=== PATIENT | female | born 1990 | race Caucasian/White ===

== ENCOUNTER 2018-08-15 14:47 | Outpatient (REF) | payer MEDICAID, SELFPAY ==
[2018-08-18 15:19] LABS: Chlamydia Result Negative; GC Result Negative; Specimen Description CERVIX
== END 2018-08-15 15:07 ==
LOC: LBN 14:47
PROVIDERS: PCP Family Medicine; Visit Provider Nurse Practitioner Women's Health
DX: Z11.3 Encounter for screening for infections with a predominantly sexual mode of transmission (principal)
CPT/HCPCS: 87491; 87591

== ENCOUNTER 2020-09-11 21:00 | Emergency (ER) | payer MEDICAID, SELFPAY ==
[2020-09-11 21:05] VITALS: BP 149/79; PULSE 96; RESP 18; TEMP 36.6; O2SAT 99
--- NOTE | 2020-09-11 21:48 | DI.RAD_ITS ---
EXAM: XR ELBOW RT COMPLETE CLINICAL HISTORY: fall. TECHNIQUE: 2D digital imaging was performed. COMPARISON: No exams were available for comparison FINDINGS: BONES: No acute fracture is present. No bony destructive lesion is seen. JOINTS: The elbow is normally aligned. No joint effusion is seen. SOFT TISSUE: Normal. IMPRESSION: Unremarkable radiographs of the right elbow. DATA REPOSITORY: RADIATION DOSE DELIVERED:
--- NOTE | 2020-09-11 21:48 | DI.RAD_ITS ---
EXAM: XR SHOULDER RT COMPLETE 2+V CLINICAL HISTORY: fall. TECHNIQUE: 2D digital imaging was performed. COMPARISON: No exams were available for comparison FINDINGS: BONES: No acute fracture is present. No bony destructive lesion is seen. JOINTS: No dislocation present. SOFT TISSUE: Normal. IMPRESSION: Unremarkable radiographs of the right shoulder. DATA REPOSITORY: RADIATION DOSE DELIVERED:
--- NOTE | 2020-09-11 21:59 | DI.VRAD_ITS ---
PROCEDURE INFORMATION: Exam: XR Right Elbow Exam date and time: 09/11/2020 9:26 PM Age: 30 years old Clinical indication: Injury; Fall; Blunt trauma right elbow TECHNIQUE: Imaging protocol: XR Right elbow. Views: 3 or more views. COMPARISON: No relevant prior studies available. FINDINGS: Bones/joints: No acute fracture. No dislocation. No anterior or posterior fat pad sign is identified to suggest joint effusion. Soft tissues: No soft tissue radiopaque foreign body. IMPRESSION: No acute fracture or dislocation. Dictated and Authenticated by: Julio Daniels MD. Ordering:KRISTEL Hatch MD
--- NOTE | 2020-09-11 22:01 | DI.VRAD_ITS ---
PROCEDURE INFORMATION: Exam: XR Right Shoulder Exam date and time: 09/11/2020 9:47 PM Age: 30 years old Clinical indication: Injury; Fall; Blunt trauma right shoulder TECHNIQUE: Imaging protocol: XR Right shoulder. Views: 2 or more views. COMPARISON: No relevant prior studies available. FINDINGS: Bones/joints: No acute fracture. No dislocation. No AC joint separation. No focal osseous lesion. Soft tissues: No soft tissue radiopaque foreign body or soft tissue calcification. IMPRESSION: No acute findings. Dictated and Authenticated by: Julio Daniels MD. Ordering:KRISTEL Hatch MD
--- NOTE | 2020-09-11 22:04 | ED.GENADUL_ITS ---
Discharge Plan Disposition Patient Disposition: HOME Condition: Stable Discharge Details Clinical Impression: Arm pain Primary Care Provider: Venkat Ayala ED Provider: Holden Abbott Home Meds and New Rx's Prescriptions: Continued ibuprofen 200 mg tablet 200 mg PO QID PRNRF: 0 cetirizine 10 mg tablet 10 mg PO DAILY Qty: 90 RF: 3 fluticasone propionate 50 mcg/actuation spray,suspension 2 spray NS DAILY PRN (Reason: allergy symptoms) Qty: 47.4 RF: 4 acetaminophen 500 mg Tablet 1,000 mg PO PRN PRNRF: 0 Discharge Instructions Instructions: Elbow Sprain (ED), Shoulder Pain (ED) Additional Instructions: [id number] Tylenol and/or Motrin as directed for discomfort. Gentle stretching as tolerated. Cool and/or warm compresses every 2 hours for 20 minutes. Please watch for new or worsening symptoms and return to the ER for any concerns. To recommend reaching out your primary care provider tomorrow for reevaluation in the next 5-7 days if you are not doing significantly better with conservative therapy Medical Decision Making [id number] 30-year-old female presents after a fall from a ladder, approximately 4-5 feet high. She complains of right shoulder and elbow pain, no other injuries. Clinically she appears well, nontoxic. There is no obvious deformity. Will obtain x-ray of shoulder and elbow to evaluate for potential bony abnormality versus soft tissue injury. Neuro, vascular, tendon intact. X-ray of the right shoulder and elbow read by virtual radiology is unremarkable. Discussed findings with patient. She is relieved and has no additional questions or concerns. She declines sling. Will use [id number] Tylenol and/or Motrin as directed for discomfort. She was encouraged to return to the ER for new or worsening symptoms, otherwise follow-up with her primary care provider in 1 week. Medical Records Medical records reviewed: Yes I reviewed the patient's medical records. HPI General Mode of arrival: ambulatory . Date/Time Provider Initiated Documentation: 09/11/20 21:15 . Limitations to Documentation: no limitations . Information obtained by: patient . HPI Narrative: This is a 30-year-old female, who is right-hand dominant. She denies any significant past medical history. She states that around noon today she was standing on a ladder, she would guess her feet were approximately 4-5 feet off the ground. The ladder slipped, twisted and she fell to the ground hyperextending her right arm. She states the pain in her right shoulder and elbow is mild at rest, moderate with movement. She denies striking her head, neck pain, visual change, chest pain, abdominal pain, nausea, vomiting, back pain, change in bowel or bladder function, incontinence, numbness or weakness. She does report mild tingling in her right arm. Patient denies any other injury. Related Data Home Medications Medication Instructions Recorded Confirmed ibuprofen 200 mg tablet 200 mg PO QID PRN 08/15/18 09/11/20 cetirizine 10 mg tablet 10 mg PO DAILY #90 tab-cap 02/06/19 09/11/20 fluticasone propionate 50 2 spray NS DAILY PRN #47.4 gm 07/18/20 09/11/20 mcg/actuation nasal spray,suspension acetaminophen 1,000 mg PO PRN PRN 09/11/20 09/11/20 Previous Rx's Medication Instructions Recorded cetirizine 10 mg tablet 10 mg PO DAILY #90 tab-cap 02/06/19 fluticasone propionate 50 2 spray NS DAILY PRN #47.4 gm 07/18/20 mcg/actuation nasal spray,suspension Allergies Allergy/AdvReac Type Severity Reaction Status Date / Time erythromycin base Allergy Intermediate RASH Unverified 09/11/20 21:09 alcohol Allergy Mild Skin Rash Unverified 09/11/20 21:09 enviornmental Allergy Mild uri Uncoded 09/11/20 21:09 symptoms General Stated Complaint: Trauma HENOK: 3 Review of Systems Constitutional Constitutional: Denies headache(s) and Denies weakness Eyes Eyes: Denies change in vision ENT Ears, Nose, Mouth, and Throat: Denies headache(s) and Denies neck pain Cardiovascular Cardiovascular: Denies chest pain and Denies dyspnea Respiratory Respiratory: Denies dyspnea Gastrointestinal Gastrointestinal: Denies abdominal pain, Denies nausea and Denies vomiting Genitourinary Genitourinary: Denies urinary incontinence Musculoskeletal Musculoskeletal: Denies back pain, Denies neck pain, Denies numbness and Reports tingling Integumentary/Breasts Skin/Breast: Denies rash Neurologic Neurologic: Denies headache(s), Denies numbness, Reports tingling and Denies weakness [facility] Surgical History Cholecystectomy Family History Father Aortic aneurysm rupture Son Congenital heart defect Social History Smoking/Tobacco Use Status: Never Smoking risk assessment performed?: Yes Drug use: Never Do you feel safe in your relationship?: Yes Female Reproductive History Menstrual control method: progestin IUCD (Mirena inserted by JoseA Emanuel LOT=[id number] EXP=10/2020) History History 3 Para 3 Hx # Term Pregnancies Multiple births Hx # Pregnancies Ectopic pregnancies AB induced Hx Number of Living Children AB spontaneous Exam Const General: cooperative, healthy appearing, comfortable and no acute distress Orientation: alert, awake and oriented x3 HENMT Head: normal to inspection, normocephalic and atraumatic Ears: external ears normal, TM's normal bilaterally and EAC's normal Eyes General: appearance normal, both eyes and all related structures Alignment and Position: alignment normal Periorbital: periorbital findings normal Eyelids: eyelids normal Conjunctivae: conjunctivae normal Sclera: sclerae normal Cornea: corneas normal Pupils: PERRL EOM: EOM intact bilaterally Direct ophthalmoscopy: normal light reflex Neck Neck: normal visual inspection, full ROM, trachea midline, supple and nontender Resp Effort & Inspection: normal respiratory effort and able to speak in complete sentences Auscultation: clear to auscultation bilaterally Cardio Rate: regular rate Rhythm: regular rhythm GI Palpation: soft and nontender Back/Spine/Pelvis Back: No back tenderness Skin General skin exam: no rashes or lesions noted Neuro General: patient alert, patient awake, patient oriented x3, moves all extremities and no focal motor deficits Cognition: normal cognition Speech: speech normal Gait: normal gait Motor: muscle tone normal throughout and strength 5/5 throughout Sensory Exam: no sensory deficits noted Extrem Right upper extremity: full ROM, normal capillary refill, shoulder/upper arm Details: tenderness (Diffuse superior shoulder), axillary nerve sensory function normal and normal ROM; no swelling, elbow/forearm Details: tenderness (Diffuse posterior aspect of elbow) and normal ROM; no swelling and wrist Details: normal ROM and ecchymosis (Minimal lateral aspect); no tenderness and no swelling Left upper extremity: normal to inspection, full ROM and normal capillary refill Psych Appearance: grossly normal Mental Status: mental status grossly normal Course Vital Signs Vital signs: Vital Signs Temperature 36.6 C 09/11/20 21:05 Pulse 96 H 09/11/20 21:05 Respiratory Rate 18 09/11/20 21:05 Blood Pressure 149/79 H 09/11/20 21:05 Pulse Oximetry 99 09/11/20 21:05 Temperature 36.6 C 09/11/20 21:05 Temperature Source Temporal Artery Scan 09/11/20 21:05 Pulse 96 H 09/11/20 21:05 Respiratory Rate 18 09/11/20 21:05 Respiratory Effort 09/11/20 21:18 Respiratory Depth Normal 09/11/20 21:18 Respiratory Pattern Normal 09/11/20 21:18 Blood Pressure 149/79 H 09/11/20 21:05 Blood Pressure Position Sitting 09/11/20 21:05 Pulse Oximetry 99 09/11/20 21:05 Oxygen Delivery Method Room Air 09/11/20 21:05 Oxygen Flow Rate 0 09/11/20 21:05
== END 2020-09-11 22:15 | disposition home or self-care (01) ==
PROVIDERS: Emergency Provider Physician Assistant; PCP Family Medicine
DX: M25.511 Pain in right shoulder (principal); M25.521 Pain in right elbow; W11.XXXA Fall on and from ladder, initial encounter
CPT/HCPCS: 99284; 73030; 73080; 99283

== ENCOUNTER 2020-09-21 15:53 | Outpatient (REF) | payer MEDICAID, SELFPAY ==
[2020-09-25 07:28] LABS: SARS-CoV-2 RNA Undetected (Undetected); SARS-CoV-2 Specimen Source Nasal
== END 2020-09-21 16:13 ==
LOC: LBN 15:53
PROVIDERS: PCP Family Medicine; Visit Provider Physician Assistant
DX: J02.9 Acute pharyngitis, unspecified (principal)
CPT/HCPCS: U0003; 87070

== ENCOUNTER 2020-12-27 16:52 | Outpatient (REF) | payer MEDICAID, SELFPAY ==
--- NOTE | 2020-12-27 10:45 | PAPFT_PTH ---
PATIENT: Neris Suh LOC: [facility] U#:[id number] AGE/SX: 30/F ROOM: RE12/27/[address]: MESSI Flores : 1990 BED: DIS: 12/27/2020 SPEC #: [id number] RECD: 12/27/20 17:58 STATUS: BREANN REQ #: [id number] MAXINE: 12/27/20 10:[address]: Roxanne Mendoza DEPT: [facility] Cytology RECD BY: Heather Mcfarland ENTERED: 12/27/20 17:59 SP TYPE: PAPFT OTHR DR: Venkat Ayala MD Tissues: 1 - CX/ENDOCX FOR PAP SMEARS Procedures: PAP THIN PREP/UVM Screening Comments: [id number] (UNSATISFACTORY FOR EVALUATION)
[2020-12-29 14:40] LABS: Chlamydia Result Negative (Negative); GC Result Negative (Negative)
== END 2020-12-27 16:53 | disposition home or self-care (01) ==
LOC: LBN 16:52
PROVIDERS: PCP Family Medicine; Visit Provider Nurse Practitioner Family
DX: Z11.3 Encounter for screening for infections with a predominantly sexual mode of transmission (principal); Z12.4 Encounter for screening for malignant neoplasm of cervix; R87.615 Unsatisfactory cytologic smear of cervix
CPT/HCPCS: 87491; 87591; 88142

== ENCOUNTER 2021-01-31 02:56 | Outpatient (CLI) | payer MEDICAID, SELFPAY ==
[2021-02-01 18:00] LABS: COVID-19 RT-PCR UVMMC Result Negative (Negative)
== END 2021-01-31 02:57 | disposition home or self-care (01) ==
LOC: LBO 02:56
PROVIDERS: PCP Family Medicine; Visit Provider Family Medicine
DX: Z20.822 Contact with and (suspected) exposure to COVID-19 (principal)
CPT/HCPCS: U0003

== ENCOUNTER 2021-05-07 19:24 | Emergency (ER) | payer MEDICAID, SELFPAY ==
[2021-05-07 19:33] VITALS: BP 148/82; PULSE 87; RESP 18; TEMP 36.6; O2SAT 97
--- NOTE | 2021-05-07 19:58 | ED.GENADUL_ITS ---
Discharge Plan Disposition Patient Disposition: HOME Condition: Good Discharge Details Clinical Impression: Upper respiratory disease Primary Care Provider: Venkat Ayala ED Provider: Heather Moon Home Meds and New Rx's Prescriptions: New albuterol sulfate 90 mcg/actuation HFA aerosol inhaler 2 puff inhalation Q6H PRNQty: 6.7 RF: 0 Continued Mirena 20 mcg/24 hours (6 yrs) 52 mg intrauterine device 1 device intrauterine ONCE RF: 0 ibuprofen 200 mg tablet 200 mg PO QID PRNRF: 0 fluticasone propionate 50 mcg/actuation spray,suspension 2 spray NS DAILY PRN (Reason: allergy symptoms) Qty: 47.4 RF: 4 cetirizine 10 mg tablet 10 mg PO DAILY Qty: 90 RF: 3 acetaminophen 500 mg Tablet 1,000 mg PO PRN PRNRF: 0 Discharge Instructions Additional Instructions: Take Mucinex Use albuterol inhaler as needed for cough Increase fluid hydration Ibuprofen ibuprofen and Tylenol for symptom control With persistent laryngitis, recommendation to follow-up with ENT Discharge Data Discharge Date/Time-TO BE ENTERED AT DEPARTURE: 05/07/21 20:15 Medical Decision Making Patient with upper respiratory congestion and cough with laryngitis She appears well, her lungs are clear to auscultation and her vitals are stable, there is no hypoxia, no indication for chest x-ray at this time, 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, she is aware that she should isolate until her Covid test returns Patient is otherwise afebrile and nontoxic She is given an albuterol inhaler She is instructed to follow-up with her primary care physician in 24 to 48 hours for reevaluation return earlier should she have new or worsening complaints Low suspicion for pneumonia given lack of tachypnea, hypoxia, and no fever noted without wheezes Suspect upper respiratory infection, low suspicion for pulmonary embolism as patient is not on exogenous hormones, and otherwise well in appearance without tachypnea, tachycardia, or hypoxia HPI General Mode of arrival: ambulatory . Date/Time Provider Initiated Documentation: 05/07/21 19:45 . Limitations to Documentation: no limitations . Information obtained by: patient . HPI Narrative: This 30-year-old female presents with upper respiratory symptoms. She states that she has been sick for the past 2 weeks with runny nose and intermittent laryngitis. She denies any shortness of breath. She states her cough is productive. She denies any calf pain or swelling. She denies fever or chills. She denies shortness of breath or chance of . She denies any known sick contacts. She has care with vaccinated. She is supposed to work tomorrow and thought she should be evaluated which is why she presents. She denies significant new or worsening complaints Related Data Home Medications Medication Instructions Recorded Confirmed ibuprofen 200 mg tablet 200 mg PO QID PRN 08/15/18 05/07/21 fluticasone propionate 50 2 spray NS DAILY PRN #47.4 gm 07/18/20 05/07/21 mcg/actuation nasal spray,suspension acetaminophen 1,000 mg PO PRN PRN 09/11/20 05/07/21 cetirizine 10 mg tablet 10 mg PO DAILY #90 tab-cap 09/19/20 05/07/21 levonorgestrel 20 mcg/24 hours (6 1 device INTRAUTERINE ONCE 12/27/20 05/07/21 yrs) 52 mg intrauterine device albuterol sulfate 2 puff INHALATION Q6H PRN #6.7 g 05/07/21 Previous Rx's Medication Instructions Recorded fluticasone propionate 50 2 spray NS DAILY PRN #47.4 gm 07/18/20 mcg/actuation nasal spray,suspension cetirizine 10 mg tablet 10 mg PO DAILY #90 tab-cap 09/19/20 albuterol sulfate 2 puff INHALATION Q6H PRN #6.7 g 05/07/21 Allergies Allergy/AdvReac Type Severity Reaction Status Date / Time erythromycin base Allergy Intermediate RASH Verified 05/07/21 19:40 alcohol Allergy Mild Skin Rash Verified 05/07/21 19:40 enviornmental Allergy Mild uri Uncoded 05/07/21 19:40 symptoms General Stated Complaint: RespSymp HENOK: 3 Review of Systems All systems reviewed & are unremarkable except as noted in HPI and below PFSH Medical History Abnormal cervical Pap smear with positive HPV DNA test (05/27/09) Epithelial inclusion cyst Panic attack (09/15/13) Teen (09/15/13) Umbilical hernia Surgical History Cholecystectomy Family History Father Aortic aneurysm rupture Alcohol abuse Hypertension Son Congenital heart defect Mother Hypertension Alcohol abuse Depression Sister Substance abuse Social History Smoking/Tobacco Use Status: Never Second Hand Exposure: No Smoking risk assessment performed?: Yes Alcohol Intake: current Alcohol Intake frequency: holidays/special occasions only Alcohol type: wine and hard liquor Drug use: Never Substance use type: does not use Household members: significant other and children Housing: house Communication Needs: None Do you need help understanding health information?: Never Pets and animals: Yes Pets and animals: dog(s) Sexually active: Yes Do you think of yourself as: straight/heterosexual Current gender identity: female What is your relationship status?: living with partner How often do you talk on the phone with friends or family?: three or more times per week How often do you get together with friends or relatives?: never Panel score (0-1 are the most socially isolated patients): 2 What type of physical activity do you participate in: none Carolin/Latter-Day: No preference Special carolin needs: No Seatbelt use: always Helmet use: Yes Helmet use: always Do you feel safe at home: Yes Do you feel safe in your relationship?: Yes Female Reproductive History Menstrual control method: progestin IUCD (Mirena inserted by Jose A Emanuel LOT=[id number] EXP=10/2020) History History 3 Para 3 Hx # Term Pregnancies Multiple births Hx # Pregnancies Ectopic pregnancies AB induced Hx Number of Living Children AB spontaneous Exam Const General: cooperative, comfortable and no acute distress Eyes Pupils: PERRL Resp Effort & Inspection: normal respiratory effort Auscultation: clear to auscultation bilaterally Cardio Rate: regular rate Skin General skin exam: no rashes or lesions noted Neuro General: patient alert and patient oriented x3 Extrem Other: no peripheral edema Course Vital Signs Vital signs: Vital Signs Temperature 36.6 C 05/07/21 19:33 Pulse 87 05/07/21 19:33 Respiratory Rate 18 05/07/21 19:33 Blood Pressure 148/82 H 05/07/21 19:33 Pulse Oximetry 97 05/07/21 19:33 Temperature 36.6 C 05/07/21 19:33 Pulse 87 05/07/21 19:33 Respiratory Rate 18 05/07/21 19:33 Respiratory Effort Non-Labored 05/07/21 19:40 Blood Pressure 148/82 H 05/07/21 19:33 Blood Pressure Position Sitting 05/07/21 19:33 Pulse Oximetry 97 05/07/21 19:33 Oxygen Delivery Method Room Air 05/07/21 19:33 Oxygen Flow Rate 0 05/07/21 19:33 Pain Level 0 05/07/21 19:33
[2021-05-07] MEDS: Dexamethasone 4 MG TAB 8 MG PO (20:10)
[2021-05-09 14:16] LABS: COVID-19 RT-PCR UVMMC Result Negative (Negative)
== END 2021-05-07 20:15 | disposition home or self-care (01) ==
PROVIDERS: Emergency Provider Physician Assistant; PCP Family Medicine
DX: J04.0 Acute laryngitis (principal); J06.9 Acute upper respiratory infection, unspecified; R05 Cough; Z20.822 Contact with and (suspected) exposure to COVID-19; Z03.818 Encounter for observation for suspected exposure to other biological agents ruled out
CPT/HCPCS: 99283; U0003; J8540

== ENCOUNTER 2022-05-21 13:01 | Outpatient (CLI) | payer MEDICAID, SELFPAY ==
--- NOTE | 2022-05-21 12:45 | DI.RAD_ITS ---
Exam(s) XR TIB/FIB RT EXAM: XR TIB/FIB RT CLINICAL HISTORY: s/p Right ORIF. TECHNIQUE: 2D digital imaging was performed. COMPARISON: No exams were available for comparison FINDINGS: Two views There is a long intramedullary jumana transfixing the oblique fracture site just distal to midshaft of r ight tibia. There appears to be satisfactory alignment. Fracture line still visible. No obvious ca llus formation. No other thinner fracture line seen in the cortex distal to the primary site.. IMPRESSION: DATA REPOSITORY: RADIATION DOSE DELIVERED:
== END 2022-05-21 13:02 | disposition home or self-care (01) ==
LOC: DIORS 13:02
PROVIDERS: PCP Family Medicine; Referring Provider Family Medicine; Visit Provider Physician Assistant
DX: S82.201B Unspecified fracture of shaft of right tibia, initial encounter for open fracture type I or II (principal); X58.XXXA Exposure to other specified factors, initial encounter
CPT/HCPCS: 73590

== ENCOUNTER 2022-05-27 20:36 | Emergency (ER) | payer MEDICAID, SELFPAY ==
[2022-05-27 20:49] VITALS: BP 161/87; PULSE 117; RESP 18; TEMP 37; O2SAT 100
[2022-05-27 20:52] VITALS: BP 145/84
[2022-05-27] MEDS: Cephalexin 500 MG CAP PO (22:02)
--- NOTE | 2022-05-27 22:02 | ED.GENADUL_ITS ---
Discharge Plan Disposition Patient Disposition: HOME Condition: Stable Discharge Details Clinical Impression: Cellulitis Primary Care Provider: Deedee Elder ED Provider: Jim Spivey Home Meds and New Rx's Prescriptions: New cephalexin 500 mg tablet 500 mg PO QID 7 Days Qty: 28 0RF Continued Mirena 20 mcg/24 hours (6 yrs) 52 mg intrauterine device 1 device intrauterine ONCE Rx Instructions: as a single dose ibuprofen 200 mg tablet 200 mg PO QID PRN aspirin 81 mg tablet,delayed release (DR/EC) 81 mg PO BID tramadol 50 mg tablet 50 mg PO Q6H PRN cetirizine 10 mg tablet 10 mg PO DAILY Qty: 90 3RF fluticasone propionate 50 mcg/actuation spray,suspension 2 spray NS DAILY PRN (Reason: allergy symptoms) Qty: 47.4 4RF acetaminophen 500 mg Tablet 1,000 mg PO PRN PRN Discharge Instructions Instructions: Cellulitis (ED) Additional Instructions: Continue to monitor wound and for any new or significant worsening symptoms return immediately to the emergency department. Otherwise tomorrow please call the orthopedic office for arrangement of follow-up appointment and reassessment of your infection. Referrals: Roshan Dumont MD [ [facility] STAFF PHYSICIAN] - (Please call the office for arrangement of follow-up appointment) Medical Decision Making Patient presenting to the emergency department for chief complaint of right lower leg drainage and increasing discomfort for the past day. Patient states that approximately 2 weeks ago she had a mechanical fall that resulted in an open fracture that was repaired. Patient had been having significant impr ovement in symptoms until she noted serosanguineous drainage from the lower site where the bone broke through the skin. Patient states that surgical incision site has had no issues or complications. Patient has been following nonweightbearing with occasional attempts at weightbearing but denies any increase of activity or further injury or trauma to the area. Physical exam shows laceration to mid anterior lower leg with surrounding erythema warmth and tenderness. Patient does have picture of site 1 week ago and there is significant concern for secondary infection. Surgical dressing was left intact but has no surrounding erythema or significant tenderness of concern. Did contact the on-call orthopedist Dr. Dumont whom recommended patient to be started on Keflex and follow-up in their office. Patient is agreeable to this plan of care and is stable at time of discharge. After discussion of diagnosis and plan of care patient has no further needs, questions, or concerns and states clear understanding to return to the emergency department for any worsening symptoms. This documentation was generated using [employer] system, please disregard any oddities of phrase or misspellings. HPI General Mode of arrival: ambulatory (On crutches) . Date/Time Provider Initiated Documentation: 05/27/22 20:39 . Limitations to Documentation: no limitations . Information obtained by: patient, RN notes reviewed and old records reviewed . History of Present Illness 31 year old F presents to the emergency department with the chief complaint of Right lower leg infected wound, described as mild, with intensity rated at 3. Quality is described as burning, and is localized to the right and lower extremity. Patient distal. Patient started experiencing this day(s) (1) and it has been constant. No relieving factors improve symptom(s), No exacerbating factors reported . Patient notes no other symptoms.. Patient did receive the following treatments prior to arrival, none Related Data Home Medications Medication Instructions Recorded Confirmed ibuprofen 200 mg tablet 200 mg PO QID PRN 08/15/18 05/27/22 acetaminophen 500 mg tablet 1,000 mg PO PRN PRN 09/11/20 05/27/22 levonorgestrel 20 mcg/24 hours (7 1 device intrauterine ONCE 12/27/20 05/27/22 yrs) 52 mg intrauterine device (Mirena) cetirizine 10 mg tablet 10 mg PO DAILY #90 tab-caps 01/12/22 05/27/22 fluticasone propionate 50 2 spray NS DAILY PRN allergy 01/12/22 05/27/22 mcg/actuation nasal symptoms #47.4 grams spray,suspension aspirin 81 mg tablet,delayed 81 mg PO BID 05/21/22 05/27/22 release tramadol 50 mg tablet 50 mg PO Q6H PRN 05/21/22 05/21/22 cephalexin 500 mg tablet 500 mg PO QID 7 days #28 tabs 05/27/22 Previous Rx's Medication Instructions Recorded cetirizine 10 mg tablet 10 mg PO DAILY #90 tab-caps 01/12/22 fluticasone propionate 50 2 spray NS DAILY PRN allergy 01/12/22 mcg/actuation nasal symptoms #47.4 grams spray,suspension cephalexin 500 mg tablet 500 mg PO QID 7 days #28 tabs 05/27/22 Allergies Allergy/AdvReac Type Severity Reaction Status Date / Time erythromycin base Allergy Intermediate RASH Verified 05/27/22 20:53 alcohol Allergy Mild Skin Rash Verified 05/27/22 20:53 enviornmental Allergy Mild uri Uncoded 05/27/22 20:53 symptoms General Stated Complaint: Orthopedic HENOK: 4 Review of Systems Narrative: 8 systems reviewed and unremarkable except what is marked below. Constitutional Constitutional: Denies chills and Denies fever(s) Musculoskeletal Musculoskeletal: Reports as per HPI and Reports tingling Integumentary/Breasts Skin/Breast: Reports as per HPI, Reports erythema, Reports skin pain and Reports skin swelling Neurologic Neurologic: Reports tingling PFSH All Active Problems Cellulitis (Acute) Open right tibial fracture (Acute 05/14/22) Upper respiratory disease (Acute) Superior labrum ydttlmwh-[id number]-ysaiggylr (SLAP) tear of right shoulder (Acute ~08/2020) Abnormal cervical Pap smear with positive HPV DNA test (Acute 05/27/09) Panic attack (Acute 09/15/13) Teen (Acute 09/15/13) Epithelial inclusion cyst (Acute) Umbilical hernia (Acute) Right arm pain (Acute) Sore throat (Acute) IUD surveillance (Acute) Mirena inserted 08/15/18 Vitamin D deficiency (Acute 10/13/14) S/P cholecystectomy (Acute) Multigravida in third trimester (Acute 02/08/16) Migraine with aura (Acute 09/15/13) Loss of sense of smell (Acute 12/31/17) Family history of diabetes mellitus (DM) (Acute 01/14/18) father Family history of alcohol abuse (Acute 01/14/18) Family history of abdominal aortic aneurysm (AAA) (Acute 01/14/18) Encounter for supervision of other normal , first trimester (Acute 09/07/15) Encounter for visit (Acute 05/23/16) Alopecia (Acute 12/31/17) Allergic rhinitis (Acute 12/31/17) 24 weeks gestation of (Acute 12/26/15) Fall (Acute 12/26/15) Surgical History Cholecystectomy Family History Father Aortic aneurysm rupture Alcohol abuse Hypertension Son Congenital heart defect Mother Hypertension Alcohol abuse Depression Sister Substance abuse Social History Smoking/Tobacco Use Status: Never Second Hand Exposure: No Smoking risk assessment performed?: Yes Alcohol Intake: current Alcohol Intake frequency: holidays/special occasions o nly Alcohol type: wine and hard liquor Drug use: Never Substance use type: does not use Household members: significant other and children Housing: house Communication Needs: None Do you need help understanding health information?: Never Pets and animals: Yes Pets and animals: dog(s) Sexually active: Yes Do you think of yourself as: straight/heterosexual Current gender identity: female What is your relationship status?: living with partner How often do you talk on the phone with friends or family?: three or more times per week How often do you get together with friends or relatives?: never Panel score (0-1 are the most socially isolated patients): 2 What type of physical activity do you participate in: none Carolin/Anabaptism: No preference Special carolin needs: No Seatbelt use: always Helmet use: Yes Helmet use: always Do you feel safe at home: Yes Do you feel safe in your relationship?: Yes Female Reproductive History Menstrual control method: progestin IUCD (Mirena inserted by Jose A Emanuel LOT=[id number] EXP=10/2020) History History 3 Para 3 Hx # Term Pregnancies Multiple births Hx # Pregnancies Ectopic pregnancies AB induced Hx Number of Living Children AB spontaneous Exam Const General: cooperative, no acute distress and not ill appearing Orientation: alert, awake and oriented x3 Resp Effort & Inspection: normal respiratory effort, able to speak in complete sentences and no respiratory distress Cardio Pulses: normal peripheral pulses Skin General skin exam: no rashes or lesions noted Neuro General: patient alert, patient awake, patient oriented x3, moves all extremities and no focal motor deficits Sensory Exam: no sensory deficits noted Extrem General: normal exam except as noted Right lower extremity: lower leg Details: erythema Location: of the mid lower leg Location: anteriorly, tenderness Location: of the midshaft tibia, laceration and warmth Location: of the mid lower leg Course Vital Signs Vital signs: Vital Signs Temperature 37.0 C 05/27/22 20:49 Pulse 117 H 05/27/22 20:49 Respiratory Rate 18 05/27/22 20:49 Blood Pressure 161/87 H 05/27/22 20:49 Pulse Oximetry 100 05/27/22 20:49 Temperature 37.0 C 05/27/22 20:49 Temperature Source Skin 05/27/22 20:49 Pulse 117 H 05/27/22 20:49 Respiratory Rate 18 05/27/22 20:49 Respiratory Effort Non-Labored 05/27/22 20:54 Blood Pressure 145/84 H 05/27/22 20:52 Blood Pressure Position Sitting 05/27/22 20:49 Pulse Oximetry 100 05/27/22 20:49 Oxygen Delivery Method Room Air 05/27/22 20:49 Oxygen Flow Rate 0 05/27/22 20:49 Pain Level 3 05/27/22 20:54
[2022-05-27] MEDS: Cephalexin 500 MG CAP, 2 CAPS/BTL PO (22:10)
[2022-05-27 22:15] VITALS: BP 145/84; PULSE 117; RESP 18; TEMP 37; O2SAT 100
== END 2022-05-27 22:24 | disposition home or self-care (01) ==
PROVIDERS: Emergency Provider Nurse Practitioner Family; PCP Family Medicine
DX: T81.49XA Infection following a procedure, other surgical site, initial encounter (principal); L03.115 Cellulitis of right lower limb
CPT/HCPCS: 99283

== ENCOUNTER 2022-06-04 13:14 | Emergency (ER) | payer MEDICAID, SELFPAY ==
[2022-06-04 13:29] VITALS: BP 167/88; PULSE 114; RESP 16; TEMP 36.4; O2SAT 99
--- NOTE | 2022-06-04 13:47 | PDOC.ERCMPRO ---
- If Service Date Differs Date of service: 06/04/22 Time of Service: 13:47 Care Management Progress Note SBIRT screen: negative. BNI alcohol low risk (AUDIT 7) female. Pt reports no substance use or mental health symptoms.
--- NOTE | 2022-06-04 14:45 | DI.RAD_ITS ---
Exam(s) XR TIB/FIB RT EXAM: XR TIB/FIB RT CLINICAL HISTORY: pain, fell today 3 wks s/p tibia jumana. TECHNIQUE: 2D digital imaging was performed. COMPARISON: CR XR TIB/FIB RT from 05/21/2022 FINDINGS: Two views Again noted is a long intramedullary jumana in the femur transfixing the previously described fracture s ite just distal to the midshaft. No change in alignment. Fracture line still evident. No obvious c allus formation. No obvious radiographic evidence of osteomyelitis. Again noted is a 2nd smaller nondisplaced posterior cortex fracture in the tibia located approximatel y 3 cm below the primary fracture site. There is subcutaneous soft tissue streaking in the calf noted, not cleared since 05/21/2022. IMPRESSION: Minimal radiographic change when compared to 05/21/2022. DATA REPOSITORY: RADIATION DOSE DELIVERED:
--- NOTE | 2022-06-04 14:51 | ED.GENADUL_ITS ---
Discharge Plan Disposition Patient Disposition: HOME Condition: Stable Discharge Details Chief Complaint: Orthopedic Clinical Impression: Fall, Pain of right tibia Primary Care Provider: Deedee Elder ED Provider: Jan Solis Home Meds and New Rx's Prescriptions: No Action Mirena 20 mcg/24 hours (6 yrs) 52 mg intrauterine device 1 device intrauterine ONCE Rx Instructions: as a single dose ibuprofen 200 mg tablet 200 mg PO QID PRN aspirin 81 mg tablet,delayed release (DR/EC) 81 mg PO BID tramadol 50 mg tablet 50 mg PO Q6H PRN cetirizine 10 mg tablet 10 mg PO DAILY Qty: 90 3RF fluticasone propionate 50 mcg/actuation spray,suspension 2 spray NS DAILY PRN (Reason: allergy symptoms) Qty: 47.4 4RF acetaminophen 500 mg Tablet 1,000 mg PO PRN PRN Discharge Instructions Instructions: Fall Prevention (ED) Additional Instructions: Blood pressure today was elevated at 167/88. This is high. This is likely secondary to pain and anxiety. Please be sure to follow-up with your primary care physician for recheck. A medication reconciliation could not be performed today. Please continue to take your medications as prescribed. Please continue to use crutches and weight-bear as tolerated. Please follow-up with orthopedics tomorrow. Return to the emerge department immediately for any worsening or new concerning symptoms. Referrals: Deedee Elder MD [Primary Care Provider] - Roshan Dumont MD [ [facility] STAFF PHYSICIAN] - Medical Decision Making 1450??31-year-old female here 3 weeks status post ORIF open fracture of the tibia with jumana placement, with acute pain in her right lower leg after she s tumbled and fell just prior to arrival today. Concern for recurrent fracture versus hardware failure. Plan to obtain x-ray of the tib-fib. Ibuprofen and Tylenol was offered and declined. Ice pack was applied. 1500 --x-ray was reviewed and interpreted by radiology:Again noted is a long intramedullary jumana in the femur transfixing the previously described fracture site just distal to the midshaft.? No change in alignment.? Fracture line still evident.? No obvious callus formation. No obvious radiographic evidence of osteomyelitis. Again noted is a 2nd smaller nondisplaced posterior cortex fracture in the tibia located approximately 3 cm below the primary fracture site. There is subcutaneous soft tissue streaking in the calf noted, not cleared since 05/21/2022. IMPRESSION: Minimal radiographic change when compared to 05/21/2022. Plan for discharge with outpatient follow-up with orthopedics. Patient has scheduled appointment tomorrow which I advised she should keep. Patient to continue to use crutches. Usual customary discharge instructions were reviewed with the patient. HPI General Mode of arrival: ambulatory . Date/Time Provider Initiated Documentation: 06/04/22 13:40 . Limitations to Documentation: no limitations . Information obtained by: patient . HPI Narrative: 31-year-old female with history of open tibial fracture now 3 weeks status post ORIF with jumana placement, postoperative course complicated by wound infection, currently on antibiotics and improving, here with worsening pain in her mid tibia after fall today. She notes she stumbled while using crutches and had to bear weight on her right leg. She fell to a couch. She notes pain prior to fall was minimal and now moderate and worse with movement. Pain is localized to mid lower leg and worse medially. Patient denies associated numbness or tingling. Related Data Home Medications Medication Instructions Recorded Confirmed ibuprofen 200 mg tablet 200 mg PO QID PRN 08/15/18 05/27/22 acetaminophen 500 mg tablet 1,000 mg PO PRN PRN 09/11/20 05/27/22 levonorgestrel 20 mcg/24 hours (7 1 device intrauterine ONCE 12/27/20 05/27/22 yrs) 52 mg intrauterine device (Mirena) cetirizine 10 mg tablet 10 mg PO DAILY #90 tab-caps 01/12/22 05/27/22 fluticasone propionate 50 2 spray NS DAILY PRN allergy 01/12/22 05/27/22 mcg/actuation nasal symptoms #47.4 grams spray,suspension aspirin 81 mg tablet,delayed 81 mg PO BID 05/21/22 05/27/22 release tramadol 50 mg tablet 50 mg PO Q6H PRN 05/21/22 05/21/22 Previous Rx's Medication Instructions Recorded cetirizine 10 mg tablet 10 mg PO DAILY #90 tab-caps 01/12/22 fluticasone propionate 50 2 spray NS DAILY PRN allergy 01/12/22 mcg/actuation nasal symptoms #47.4 grams spray,suspension Allergies Allergy/AdvReac Type Severity Reaction Status Date / Time erythromycin base Allergy Intermediate RASH Verified 05/27/22 20:53 alcohol Allergy Mild Skin Rash Verified 05/27/22 20:53 enviornmental Allergy Mild uri Uncoded 05/27/22 20:53 symptoms General Stated Complaint: Orthopedic HENOK: 4 PFSH All Active Problems (Updated 06/04/22 @ 16:01 by Jan Solis MD) Cellulitis (Acute) Fall (Acute) Pain of right tibia (Acute) Open right tibial fracture (Acute 05/14/22) Upper respiratory disease (Acute) Superior labrum sjaqndkk-ns-gowhnqowx (SLAP) tear of right shoulder (Acute ~08/2020) Abnormal cervical Pap smear with positive HPV DNA test (Acute 05/27/09) Panic attack (Acute 09/15/13) Teen (Acute 09/15/13) Epithelial inclusion cyst (Acute) Umbilical hernia (Acute) Right arm pain (Acute) Sore throat (Acute) IUD surveillance (Acute) Mirena inserted 08/15/18 Vitamin D deficiency (Acute 10/13/14) S/P cholecystectomy (Acute) Multigravida in third trimester (Acute 02/08/16) Migraine with aura (Acute 09/15/13) Loss of sense of smell (Acute 12/31/17) Family history of diabetes mellitus (DM) (Acute 01/14/18) father Family history of alcohol abuse (Acute 01/14/18) Family history of abdominal aortic aneurysm (AAA) (Acute 01/14/18) Encounter for supervision of other normal , first trimester (Acute 09/07/15) Encounter for visit (Acute 05/23/16) Alopecia (Acute 12/31/17) Allergic rhinitis (Acute 12/31/17) 24 weeks gestation of (Acute 12/26/15) Fall (Acute 12/26/15) Surgical History Cholecystectomy Family History Father Aortic aneurysm rupture Alcohol abuse Hypertension Son Congenital heart defect Mother Hypertension Alcohol abuse Depression Sister Substance abuse Social History Smoking/Tobacco Use Status: Never Second Hand Exposure: No Smoking risk assessment performed?: Yes Alcohol Intake: current Alcohol Intake frequency: holidays/special occasions only Alcohol type: wine and hard liquor Drug use: Never Substance use type: does not use Household members: significant other and children Housing: house Communication Needs: None Do you need help understanding health information?: Never Pets and animals: Yes Pets and animals: dog(s) Sexually active: Yes Do you think of yourself as: straight/heterosexual Current gender identity: female What is your relationship status?: living with partner How often do you talk on the phone with friends or family?: three or more times per week How often do you get together with friends or relatives?: never Panel score (0-1 are the most socially isolated patients): 2 What type of physical activity do you participate in: none Carolin/Pentecostal: No preference Special carolin needs: No Seatbelt use: always Helmet use: Yes Helmet use: always Do you feel safe at home: Yes Do you feel safe in your relationship?: Yes Female Reproductive History Menstrual control method: progestin IUCD (Mirena inserted by Jose A Emanuel LOT=[id number] EXP=10/2020) History History 3 Para 3 Hx # Term Pregnancies Multiple births Hx # Pregnancies Ectopic pregnancies AB induced Hx Number of Living Children AB spontaneous Exam Const General: cooperative and no acute distress Cardio Rate: regular rate and not tachycardic Rhythm: regular rhythm Skin Trauma: other (Healing puncture wound mid tibia with mild surrounding erythema, no dischar) Neuro General: patient alert, patient awake, patient oriented x3 and tone normal Extrem Right lower extremity: knee (Nontender with no effusion) and lower leg Details: tenderness Location: of the midshaft tibia; no deformity Other: Distal right lower extremity motor and sensation intact Course Vital Signs Vital signs: Vital Signs Temperature 36.4 C 06/04/22 13:29 Pulse 114 H 06/04/22 13:29 Respiratory Rate 16 06/04/22 13:29 Blood Pressure 167/88 H 06/04/22 13:29 Pulse Oximetry 99 06/04/22 13:29 Temperature 36.4 C 06/04/22 13:29 Temperature Source Oral 06/04/22 13:29 Pulse 114 H 06/04/22 13:29 Respiratory Rate 16 06/04/22 13:29 Respiratory Effort 06/04/22 13:32 Blood Pressure 167/88 H 06/04/22 13:29 Blood Pressure Position Sitting 06/04/22 13:29 Pulse Oximetry 99 06/04/22 13:29 Oxygen Delivery Method Room Air 06/04/22 13:29 Oxygen Flow Rate 0 06/04/22 13:29 Pain Level 2 06/04/22 13:29 Comment 06/04/22 13:29
== END 2022-06-04 16:12 | disposition home or self-care (01) ==
PROVIDERS: Emergency Provider Student in an Organized Health Care Education/Training Program; PCP Family Medicine
DX: M79.661 Pain in right lower leg (principal); G89.11 Acute pain due to trauma; Z98.890 Other specified postprocedural states; Z32.02 Encounter for pregnancy test, result negative; W19.XXXA Unspecified fall, initial encounter
CPT/HCPCS: 81025; 99283; 73590; 99282

== ENCOUNTER 2022-06-18 14:24 | Outpatient (CLI) | payer MEDICAID, SELFPAY ==
--- NOTE | 2022-06-18 14:15 | DI.RAD_ITS ---
Exam(s) XR TIB/FIB RT EXAM: XR TIB/FIB RT CLINICAL HISTORY: s/p ORIF R TIB. TECHNIQUE: 2D digital imaging was performed. Two images were obtained. AP, lateral and oblique view s were obtained. COMPARISON: CR XR TIB/FIB RT from 06/04/2022 FINDINGS: BONES: There are stable post operative changes present. No new fracture or dislocation. JOINTS: The joint spaces are well maintained. No joint effusion is present. SOFT TISSUE: Normal. IMPRESSION: Stable postoperative changes. DATA REPOSITORY: RADIATION DOSE DELIVERED:
== END 2022-06-18 14:25 | disposition home or self-care (01) ==
LOC: DIORS 14:24
PROVIDERS: PCP Family Medicine; Referring Provider Family Medicine; Visit Provider Student in an Organized Health Care Education/Training Program
DX: S82.244 Nondisplaced spiral fracture of shaft of right tibia (principal)
CPT/HCPCS: 73590

== ENCOUNTER 2022-07-09 15:32 | Outpatient (CLI) | payer MEDICAID, SELFPAY ==
--- NOTE | 2022-07-09 15:15 | DI.RAD_ITS ---
Exam(s) XR TIB/FIB RT EXAM: XR TIB/FIB RT CLINICAL HISTORY: F/U TIBIAL NAIL. TECHNIQUE: 2D digital imaging was performed. COMPARISON: CR XR TIB/FIB RT from 06/18/2022 FINDINGS: Two views: Long intramedullary jumana again noted transfixing previously described midshaft tibial fracture site. Stable position alignment of the fracture fragments. No radiographic evidence of loosening nor osteo myelitis. Fracture lines are still evident. No new fractures identified. No radiographic evidence of osteomyelitis. IMPRESSION: DATA REPOSITORY: RADIATION DOSE DELIVERED:
== END 2022-07-09 15:33 | disposition home or self-care (01) ==
LOC: DIORS 15:32
PROVIDERS: PCP Family Medicine; Referring Provider Family Medicine; Visit Provider Physician Assistant Surgical
DX: S82.244 Nondisplaced spiral fracture of shaft of right tibia (principal); W10.8XXD Fall (on) (from) other stairs and steps, subsequent encounter
CPT/HCPCS: 73590

== ENCOUNTER 2022-08-06 09:29 | Outpatient (CLI) | payer MEDICAID, SELFPAY ==
--- NOTE | 2022-08-06 15:15 | DI.RAD_ITS ---
Exam(s) XR TIB/FIB RT EXAM: XR TIB/FIB RT INDICATION: right tibial fracture. COMPARISON: CR XR TIB/FIB RT from 07/09/2022 TECHNIQUE: 2D digital imaging was performed. Two views. FINDINGS: There has been no change in the intramedullary jumana or fracture alignment. There is been some increas ed interval healing compared with the prior exam. No new abnormalities. DATA REPOSITORY: RADIATION DOSE DELIVERED:
--- OUTSIDE RECORDS SUMMARY | 2022-08-08 09:33 | XMS_ITS | Clinical Summary ---
:1990 Author Organization [facility] Address [address] [place] [address] Care Team Providers Name Role Phone Caty Trinidad MD Primary Care Provider Social History Tobacco Use Types Packs/Day Years Used Date Never Assessed Sex Assigned at Date Recorded Not on file Plan of Treatment Health Maintenance Due Date Last Done Comments Hepatitis C Screen 1988 COVID-19 Vaccine (#1) 1988 Care Teams [employer] Work[employer] Relationship Specialty Start Date End Date Caty Trinidad MD PCP - General 11/30/[address] [place] [address] [address] [place] [id number]
--- OUTSIDE RECORDS SUMMARY | 2022-08-08 09:33 | XMS_ITS | Encounter Summary ---
:1990 [place] [address] Care Team Providers Name Role Phone Caty Trinidad MD Primary Care Provider Encounter Details Date Type Department Care Team Description 12/13/2015 Hospital Encounter Non-Invasive PscElizabeth sierra ; Cardiology Lab Deepthi Castellanos MD Previous child born with ventricular sep charlotte defect, currently , not applicable or unspecified fetus [facility] OBSTETRICS & [facility] [place] [address] [phone] Social History Tobacco Use Types Packs/Day Years Used Date Never Smoker Alcohol Use Standard Drinks/Week Comments Yes 0 (1 standard drink = 0.6 oz pure 1 drin k month none in alcohol) Alcohol Habits Answer Date Recorded How often do you have a drink Not asked containing alcohol? How many drinks containing alcohol do Not asked you have on a typical day when you are drinking? How often do you have six or more Not asked drinks on one occasion? Comment: 1 drink month none in 11/22/19 14 Sex Assigned at Date Recorded Not on file documented as of this encounter Medications at Time of Discharge Medication Sig Dispensed Refills Start Date End Date PLUS, CALCIUM CARB, 0 015 27 mg iron- 1 mg TabletIndications: , Previous child born with ventricular septal defect, currently , not applicable or unspecified fetus VITAMIN B-6 25 mg 0 10/15/2015 TabletIndications: , Previous child born with ventricular septal defect, currently , not applicable or unspecified fetus diphenhydrAMINE (BENADRYL) Take 50 mg by mouth 0 50 mg CapsuleIndications: every 6 hours as , Previous child needed for Itching. born with ventricular septal defect, currently , not applicable or unspecified fetus documented as of this encounter Plan of Treatment Not on filedocumented as of this encounter Procedures Procedure Name Priority Date/Time Associated Comments Diagnosis ECHOCARDIOGRAM Routine 12/13/2015 11:23 Results for this PRF AM EST Previous child born procedur e are in with ventricular the results septal defect, section. currently , not applicable or unspecified fetus documented in this encounter Results ECHOCARDIOGRAM PRF (12/13/2015 11:23 AM EST) Anatomical Region Laterality Modality Other Specimen (Source) Anatomical Location Collection Method / Collectio n Time Received Time / Laterality Volume 12/13/2015 Narrative 12/13/2015 1:58 PM EST Procedure: ?Pediatric Echocardiogram Patient: ?BEVERLY Mercer ? (Age): 1990(25y) ? Med Rec#: ? [id number] ?Sex: ?F ? Site Loc: ? Ht / Wt: ??(cm)/ (kg) ? Pt. Loc: ?Echo Lab ? Study Date: ?? 12/13/2015 ?Pt. Type: Study Quality: ? Referring: Kirti Enriquez Referring: JOSÉ ANTONIO Reading: Jitendra Paz ([phone]) Lay Out And Detail Drafter: Ashley Quintanilla Lay Out And Detail Drafter 2: Donovan Rodriguez Diagnosis: *ICD-10-PCS Family history of other spe cified conditions (Z84.89) BP: ? / SUMMARY: 1. A echocardiogram was performed at 22 weeks 2 days gestation (ISABEL: 04/15/2016) due to history of prior child with atrial septal defects. ??Scvc-[id number] quality images w ere obtained. ??The fetus was in a vertex position during the exam. 2. No cardiac structural abnormalities w ere identified. ??Chamber sizes, ventricular function, arterial and venou s connections were all normal. The Doppler exam was normal. ??No arrhyt hmias were noted during the exam. heart rate was 153 beats per corry te. There was no evidence of hydrops. ??This was a normal echocardiogram. 3. The limitations of echocardiogr aphy include the inability to diagnose patent ductus arteriosus, some atrial and ventricular septal defects, minor valve abnormalities and c oarctation. ??No specific or cardiac follow-up is required on this basis of this study. FINDINGS: ? Venous Connections ?At least one pulmonary vein from e ach side enters the left atrium. No pulmonary venous anomalies are detect ed. ?? Av Valves ?The tricuspid valve is functionall y and structurally normal. ?The tricuspid valve diameter measu res 8 mm in the anteroposterior plane obtained from the long axis view. (Z-Score: 1.52). ?The mitral valve is functionally a nd structurally normal. ?The mitral valve diameter measures 8.6 mm in the lateral plane obtained from the A4C view. (Z-Score: 2. 22). Ventricles ?The right ventricle is of normal s ize. ?The right ventricular systolic fun ction is normal. ?The left ventricular chamber size, wall thickness and systolic function are normal. ?The global left ventricular systol ic function is normal. Ventricular Septum ?The interventricular septum is int act with no evidence of a ventricular septal defect. Semilunar Valves ?The pulmonary valve annulus diamet er measures 5.2 mm. (Z-Score: 2.17). ?The pulmonary valve leaflets are o f normal thickness. ?The aortic valve annulus diameter measures 4.1 mm. (Z-Score: 1.61). ?The aortic valve leaflets are of n ormal thickness. Thoracic Arteries ?The main pulmonary artery is gabriella l, without dilatation, stenosis, or aneurysm.The great arteries are gabriella lly related. ?The right pulmonary artery has nor mal size, origin, and configuration. ?The left pulmonary artery has norm al size, origin, and configuration. ?The ascending aorta is normal, wit hout dilatation or narrowing. ?The ascending aorta diameter measu res 4.3 mm from the long axis view. (Z-Score: 0.96). ?The aortic arch is normal, without dilatation, aneurysm or coarctation.The aortic isthmus is normal sized. ?The aortic isthmus diameter measur es 2.7 mm distal to the left subclavian artery. (Z-Score: 0.22). ?The descending aorta is normal, wi thout dilatation, narrowing or aneurysm. Effusion ?There is no pericardial effusion. ?No evidence of hydrops. Mitral Valve ?Value ?Units (Range) ? Z Score ? MV diam (lateral) 4C8.6 ?mm ? Tricuspid Valve ?Value ?Units (Range) ? Z Score ? TV diam (lateral) 4C8 ?mm ? TV diam (AP) LAX ?8 ?mm ? Pulmonary Valve / RV ?Value ?Units (Range) ? Z Score ? PV fadia diam 2D ?5.2 ?mm ? Aorta ?Value ?Units (Range) ? Z Score ? AV fadia diam 2D ?4.1 ?mm ? Asc Ao diam (LAX) ?? 4.3 ?mm ? Isthmus diam (SSN) ??2.7 ?mm ? All Z scores are estimated This report has been electronically sign ed by: _ Jitendra ??Chantel Paz MD ? 12/13/2015 13 :57:49 Images reviewed and interpretation verif ied [facility] Cardiac Ultrasound Laboratory Procedure Note Jitendra Paz MD - 12/13/2015Formatti ng of this note might be different from the original. Procedure: Pediatric Echocardiogram Patient: BEVERLY Mercer (Age): [birth year]25y) [facility] Rec#: [id number] Sex: F Site Loc: Ht / Wt: (cm)/ (kg) Pt. Loc: Echo Lab Study Date: 12/13/2015 Pt. Type: Study Quality: Referring: Kirti Enriquez Referring: JOSÉ ANTONIO Reading: Jitendra Paz (696) Lay Out And Detail Drafter: Ashley Quintanilla Lay Out And Detail Drafter 2: Donovan Rodriguez Diagnosis: *ICD-10-PCS Family history of other spe cified conditions (Z84.89) BP: / SUMMARY: 1. A echocardiogram was performed at 22 weeks 2 days gestation (ISABEL: 04/15/2016) due to history of prior child with atrial septal defects. Xxcm-tm-[id number] quality images wer e obtained. The fetus was in a vertex position during the exam. 2. No cardiac structural abnormalities w ere identified. Chamber sizes, ventricular function, arterial and venou s connections were all normal. The Doppler exam was normal. No arrhythm ias were noted during the exam. heart rate was 153 beats per corry te. There was no evidence of hydrops. This was a normal e chocardiogram. 3. The limitations of echocardiogr aphy include the inability to diagnose patent ductus arteriosus, some atrial and ventricular septal defects, minor valve abnormalities and c oarctation. No specific or cardiac follow-up is required on this basis of this study. FINDINGS: Venous Connections At least one pulmonary vein from each s татьяна enters the left atrium. No pulmonary venous anomalies are detect ed. Av Valves The tricuspid valve is functionally and structurally normal. The tricuspid valve diameter measures 8 mm in the anteroposterior plane obtained from the long axis view. (Z-Score: 1.52). The mitral valve is functionally and st ructurally normal. The mitral valve diameter measures 8.6 mm in the lateral plane obtained from the A4C view. (Z-Score: 2. 22). Ventricles The right ventricle is of normal size. The right ventricular systolic function is normal. The left ventricular chamber size, wall thickness and systolic function are normal. The global left ventricular systolic fu nction is normal. Ventricular Septum The interventricular septum is intact w ith no evidence of a ventricular septal defect. Semilunar Valves The pulmonary valve annulus diameter me asures 5.2 mm. (Z-Score: 2.17). The pulmonary valve leaflets are of nor mal thickness. The aortic valve annulus diameter measu res 4.1 mm. (Z-Score: 1.61). The aortic valve leaflets are of normal thickness. Thoracic Arteries The main pulmonary artery is normal, wi thout dilatation, stenosis, or aneurysm.The great arteries are gabriella lly related. The right pulmonary artery has normal s ize, origin, and configuration. The left pulmonary artery has normal si ze, origin, and configuration. The ascending aorta is normal, without dilatation or narrowing. The ascending aorta diameter measures 4 .3 mm from the long axis view. (Z-Score: 0.96). The aortic arch is normal, without dila tation, aneurysm or coarctation.The aortic isthmus is normal sized. The aortic isthmus diameter measures 2. 7 mm distal to the left subclavian artery. (Z-Score: 0.22). The descending aorta is normal, without dilatation, narrowing or aneurysm. Effusion There is no pericardial effusion. No evidence of hydrops. Mitral Valve Value Units (Range) Z Score MV diam (lateral) 4C8.6 mm Tricuspid Valve Value Units (Range) Z Score TV diam (lateral) 4C8 mm TV diam (AP) LAX 8 mm Pulmonary Valve / RV Value Units (Range) Z Score PV fadia diam 2D 5.2 mm Aorta Value Units (Range) Z Score AV fadia diam 2D 4.1 mm Asc Ao diam (LAX) 4.3 mm Isthmus diam (SSN) 2.7 mm All Z scores are estimated This report has been electronically sign ed by: _ Jitendra Paz MD 12/13/2015 13:57:49 Images reviewed and interpretation verif ied [facility] Cardiac Ultrasound [facility] E Jasmin Enriquez MD ECHO ORDERABLES documented in this encounter Visit Diagnoses Diagnosis state, incidental Previous child born with ventricular sep [place]lotte defect, currently , not applicable or unspecified fetus documented in this encounter Care Teams Shrimp Cleaner Relationship Specialty Start Date End Date Caty Trinidad MD PCP - General 09/19/10 [facility] [address] [place] [address] documented as of this encounter
--- OUTSIDE RECORDS SUMMARY | 2022-08-08 09:33 | XMS_ITS | Encounter Summary ---
:1990 Author Organization [facility] Address [address] [place] [address] Care Team Providers Name Role Phone Caty Trinidad MD Primary Care Provider Encounter Details Date Type Department Care Team Description 06/27/2006 Results Only [facility] - Guillermo Felder CNM conversion [address] [place] [address] [place], [place] [id number] [phone] Social History Tobacco Use Types Packs/Day Years Used Date Never Assessed Sex Assigned at Date Recorded Not on file documented as of this encounter Plan of Treatment Not on filedocumented as of this encounter Procedures Procedure Name Priority Date/Time Associated Diagnosis Comme nts CYTOPATHOLOGY Routine 06/27/2006 0:00 EDT Results for this procedure are i n the results section . documented in this encounter Results CYTOPATHOLOGY (06/27/2006 0:00 EDT) Pathology Report: CYTOPATHOLOGY REPORT [facility] Reports generated via electronic interface contain kavin ginal data; however they are lacking the format of the original re port. Caution should be taken when reading/interpreting unfo rmatted reports. Name: ? NERIS PAUL ? Accession #: ? [id number] : ? 1990 (Age: 16) ??F ?Collect Date: ? 05/30 Location: ? [facility] ? Receive Date : ? 06/28/2006 Provider: ?GUILLERMO VIERA CNM Copy to: ? Specimen/Source: ? ThinPrep Pap Test, Cervix/Endocervix, processed on [employer] ThinPrep Imaging System, with manual evaluation Last Menstrual Period: ? 02/01/06 Menstrual/ Status: ? Other: ? HPVA - HPV testing requested if ASC-US on the current ThinPrep Pap test. ? SPECIMEN ADEQUACY ? Satisfactory for Evaluation - transformation zone component present GENERAL CATEGORIZATION ? Negative for Intraepithelial Lesion or Malignan cy ? Document reviewed and electronically signed by: ? SHIRA Herzog(ASCP) ? Report Date: ??07/02/2006 15:02 End of Report Specimen Performing Organization Address City/State/ZIP Code Phon e Number [facility] [address] [place] [address] [facility] [address] [place] [address] documented in this encounter Visit Diagnoses Not on filedocumented in this encounter Care Teams Surgical Asst Relationship Specialty Start Date End Date Caty Trinidad MD PCP - General 11/30/[address] [place] [id number] documented as of this encounter
--- OUTSIDE RECORDS SUMMARY | 2022-08-08 09:33 | XMS_ITS | Encounter Summary ---
:1990 Author Organization [facility] Address [address] [place] [address] Care Team Providers Name Role Phone Caty Trinidad MD Primary Care Provider Encounter Details Date Type Department Care Team Description 11/22/2015 Hospital Encounter Radiology at [facility] Shawnee Stevens, Previous child born [facility] MD with ventricular Drive [facility] septal defect, [place], [place] [address] currently , [phone] OBSTETRICS & not applicable or [phone] [place] [address] Social History Tobacco Use Types Packs/Day Years [...] Name Priority Date/Time Associated Diagnosis Comme nts US OB DETAILED Routine 11/22/2015 10:29 Previous child born Re sults for this MORPHOLOGY AM EST with ventricular procedure a re in septal defect, the results currently , section. not applicable or unspecified fetus documented in this encounter Results US OB Targeted Morphology (11/22/2015 10:29 AM EST) Anatomical Region Laterality Modality Pelvis, Abdomen Ultrasound Specimen (Source) Anatomical Collection Method Collection Time Re ceived Time Location / / Volume Laterality 11/22/2015 10:17 AM EST Impressions 11/22/2015 10:35 AM EST Impression 2nd Trimester - Targeted Morphology- Aguirre mmary Single intrauterine with a ge stational age of 19w 2d based on LMP. Composite age based on the current ultr asound alone is 19w 5d. Amniotic fluid volume is normal. Current growth parameters are consisten t indicating normal growth. Detailed anatomic evaluation was performed and no structural abnormalities are noted. I ??viewed the images and agree with mary stephens above interpretation. ? Elizabeth Enriquez MD Electronically Signed Final Report ?? 10:34 am Narrative 11/22/2015 10:35 AM EST OBSTETRICS REPORT ?(Signed Final 11/22/2015 10:34 am) Patient Info ID #: ? [id number] ?: ??[birth year] (25 yrs)(F) Name: ? NERIS PAUL ?Visit Date: 11/22/2015 10:17 am Performed By Performed By: ? Kinsey Herrera RDMS Attending: ?Zoe HOSKINS, Elizabeth ? ?Jasmin Referred By: ?LAMINE LÓPEZ-STER N CNM Service(s) Provided ??[facility] - Detailed Morphology - Genetics - [id number] ?[id number] Indications ??SON W/ 2 SEPTAL DEFECTS, MORPH; E - ??Coordinates with gestational age or m ore ??than one week OB History Blood Type: ?? O+ ? Height: ??5' 4 ?? Weight: ?? 207 ? BMI: ??35.53 : ?3 Living: ? 2 Evaluation Num Of Fetuses: ? 1 Heart ? 151 Rate(bpm): Cardiac Activity: ?? Observed, normal r hythm Presentation: ? Breech Placenta: ? Anterior P. Cord Insertion: ??Within Normal Limi ts Amniotic Fluid JAYNE FV: ?Normal -------- Biometry -------- BPD: ?44.1 ??mm ? G.Age: ?? 19w 2d OFD: ?64.4 ??mm HC: ?174.5 ??mm ? G.Age: ?? 20w 0d AC: ?139.5 ??mm ? G.Age: ?? 19w 2d FL: ? 32.3 ??mm ? G.Age: ?? 20w 1d HUM: ?28.6 ??mm ? G.Age: ?? 19w 2d CER: ?19.1 ??mm ? G.Age: ?? 18w 4d NFT: ? 3.9 ??mm NB: ? 7.86 ??mm LV: ?8.4 ??mm CM: ?4.9 ??mm CI: ?68.5 ??% ? 70 - 86 FL/HC: ? 18.5 ??% ? 16.1 - 18.3 HC/AC: ? 1.25 ?1. - 1.39 FL/BPD: ?73.2 ??% FL/AC: ? 23.2 ??% ? 20 - 24 Est. FW: ? 308 ?? gm ?? 0 lb 11 oz Gestational Age LMP: ? 19w 2d ?Date : ??07/10/15 ? ISABEL: ?? 04/15/16 U/S Today: ? 19w 5d ?ISABEL: ?? 04/12/16 Best: ?19w 2d ?? Det. By: ??LMP ??(07/10/15) ?ISABEL: ?? 04/15/16 Targeted Anatomy Central Nervous System Calvarium: ?Within Norm al Limits Intracranial: ? Within Normal Limits Lat. Ventricles: ?Within Normal Limits Cerebellum: ? Within Jessica l Limits Choroid Plexus: ? Within Normal Limits Cisterna Magna: ? Within Normal Limits Spine Cervical: ? Visualized Thoracic: ? Visualized Lumbar: ? Visualized Sacral: ? Visualized Head/Neck Face: ? Within No rmal Limits Nuchal Fold: ?Within Jessica l Limits Thorax Four Chamber: ? Within Normal Limits Cardiac Motion: ? Normal Rhythm R Outflow Tract: ?Visualized L Outflow Tract: ?Visualized Cardiac [place]: ? Visualized Diaphragm: ?Visualized Abdomen Ventral Wall: ? Visualized Stomach: ?Visualized Lt Kidney: ?Visualized Rt Kidney: ?Visualized Bladder: ?Visualized Extremities Lt Humerus: ? Within Nomal Limits Rt Humerus: ? Within Jessica l Limits Lt Forearm: ? Within Jessica l Limits Rt Forearm: ? Within Jessica l Limits Lt Hand: ?Within Nor mal Limits Rt Hand: ?Within Nor mal Limits Lt Femur: ? Within Norm al Limits Rt Femur: ? Within Norm al Limits Lt Lower Leg: ? Within Normal Limits Rt Lower Leg: ? Within Normal Limits Lt Foot: ?Visualized Rt Foot: ?Visualized Other Umbilical Cord: ? 3 vessel cord Genitalia: ?Female Cord Insertion: ? WIthin Normal Limits Comment: ? Nasal Bone: Visualize d Cervix Uterus Adnexa Left Ovary Not visualized Right Ovary Not visualized Procedure Note Elizabeth Enriquez MD - 11/22/2015For matting of this note might be different from the original. OBSTETRICS REPORT (Signed Final 016 10:34 am) Patient Info ID #: [id number] : [birth year] (25 y rs)(F) Name: NERIS PAUL Visit Date: 11/22 10:17 am Performed By Performed By: Kinsey Herrera RDMS Attending: Elizabeth Enriquez MD Referred By: LAMINE LÓPEZ-RENAE RAYMOND Service(s) Provided [facility] - Detailed Morphology - Genetics - [id number] Indications SON W/ 2 SEPTAL DEFECTS, MORPH; E - Coordinates with gestational age or mor e than one week OB History Blood Type: O+ Height: 5'4 Weight: 207 BMI: 35.53 : 3 Livin Evaluation Num Of Fetuses: 1 Heart 151 Rate(bpm): Cardiac Activity: Observed, normal rhyt hm Presentation: Breech Placenta: Anterior P. Cord Insertion: Within Normal Limits Amniotic Fluid JAYNE FV: Normal -------- Biometry -------- BPD: 44.1 mm G.Age: 19w 2d OFD: 64.4 mm HC: 174.5 mm G.Age: 20w 0d AC: 139.5 mm G.Age: 19w 2d FL: 32.3 mm G.Age: 20w 1d HUM: 28.6 mm G.Age: 19w 2d CER: 19.1 mm G.Age: 18w 4d NFT: 3.9 mm NB: 7.86 mm LV: 8.4 mm CM: 4.9 mm CI: 68.5 % 70 - 86 FL/HC: 18.5 % 16.1 - 18.3 HC/AC: 1.25 1.09 - 1.39 FL/BPD: 73.2 % FL/AC: 23.2 % 20 - 24 Est. FW: 308 gm 0 lb 11 oz Gestational Age LMP: 19w 2d Date: 07/10/15 ISABEL: 6 U/S Today: 19w 5d ISABEL: 04/12/16 Best: 19w 2d Det. By: LMP (07/10/15) ED Targeted Anatomy Central Nervous System Calvarium: Within Normal Limits Intracranial: Within Normal Limits Lat. Ventricles: Within Normal Limits Cerebellum: Within Normal Limits Choroid Plexus: Within Normal Limits Cisterna Magna: Within Normal Limits Spine Cervical: Visualized Thoracic: Visualized Lumbar: Visualized Sacral: Visualized Head/Neck Face: Within Normal Limits Nuchal Fold: Within Normal Limits Thorax Four Chamber: Within Normal Limits Cardiac Motion: Normal Rhythm R Outflow Tract: Visualized L Outflow Tract: Visualized Cardiac [place]: Visualized Diaphragm: Visualized Abdomen Ventral Wall: Visualized Stomach: Visualized Lt Kidney: Visualized Rt Kidney: Visualized Bladder: Visualized Extremities Lt Humerus: Within Nomal Limits Rt Humerus: Within Normal Limits Lt Forearm: Within Normal Limits Rt Forearm: Within Normal Limits Lt Hand: Within Normal Limits Rt Hand: Within Normal Limits Lt Femur: Within Normal Limits Rt Femur: Within Normal Limits Lt Lower Leg: Within Normal Limits Rt Lower Leg: Within Normal Limits Lt Foot: Visualized Rt Foot: Visualized Other Umbilical Cord: 3 vessel cord Genitalia: Female Cord Insertion: WIthin Normal Limits Comment: Nasal Bone: Visualized Cervix Uterus Adnexa Left Ovary Not visualized Right Ovary Not visualized IMPRESSION Impression 2nd Trimester - Targeted Morphology- Aguirre mmary Single intrauterine with a ge stational age of 19w 2d based on LMP. Composite age based on the current ultr asound alone is 19w 5d. Amniotic fluid volume is normal. Current growth parameters are consisten t indicating normal growth. Detailed anatomic evaluation was performed and no structural abnormalities are noted. I viewed the images and agree with the above interpretation. Elizabeth Enriquez MD Electronically Signed Final Report 11/22 10:34 am Shawnee Stevens MD IMG US OB ORDERABLES documented in this encounter Visit Diagnoses Diagnosis Previous child born with ventricular sep [place] defect, currently , not applicable or unspecified fetus documented in this encounter Care Teams Hospice Clinical Manager Relationship Specialty Start Date End Date Caty Trinidad MD PCP - General 09/19/[address] [place] [address] documented as of this encounter
--- OUTSIDE RECORDS SUMMARY | 2022-08-08 09:33 | XMS_ITS | Encounter Summary ---
:1990 Author Organization [facility] Address [address] [place] [address] Care Team Providers Name Role Phone Unavailable Primary Care Provider Unavailable Encounter Details Date Type Department Care Team Description 08/01/2006 Before PRISM Converted [facility], Visit (Luanne) Luanne toro MD [address] [place] [address] Social History Tobacco Use Types Packs/Day Years Used Date Never Assessed Sex Assigned at Date Recorded Not on file documented as of this encounter Consult Notes Aaron Reed MD - 10/22/2009 0054 EST DIVISION OF GASTROENTEROLOGY CONSULTATION - August 01, 2006 MD Doni Ferrell DO [facility] [address] [place] [address] [place] [address] Dear Colleagues, Under separate cover you will receive a complete history, physical evaluation, assessment and plan regarding your patient Neris Suh who Dr. Michael Oglesby and I saw in consultation today urgently at your request. It is difficult for me to explain the etiology of Ms. Suh's right subcostal discomfort. Based onher ultrasound, other imaging studies, and her eventual laparoscopy, I must assume that her pain hasis musculoskeletal and not visceral. I think ERCP, MRCP or for that matter any further diagnostic studies are unwarranted and at worst, possibly unsafe and I would therefore recommend watchful waiting only. Ms. Suh and her mother are aware of this opinion, and understand that we think she is likely to continue to have pain in the near future. I'd be happy to discuss this case with you at any time that we might be able to provide youwith further assistance. Please feel free to contact me at your convenience through the provider access service. Sincerely, Signed by Aaron Reed MD, FACG 08/02/2006 12:14 APeter Taurus Reed MD, [id number] L Moses, MD, FACG Aaron Reed MD, FACG [phone] - Aaron Reed MD, FACG P - MAYUR Job ID: [id number] Document ID: [id number] cc: DO David Cristina MD Joyce M Dobbertin, DCMD documented in this encounter Plan of Treatment Not on filedocumented as of this encounter Visit Diagnoses Not on filedocumented in this encounter
--- OUTSIDE RECORDS SUMMARY | 2022-08-08 09:33 | XMS_ITS | Encounter Summary ---
:1990 Author Organization [facility] Address [address] [place] [address] Care Team Providers Name Role Phone Caty Trinidad MD Primary Care Provider Encounter Details Date Type Department Care Team Description 12/28/2020 Lab Requisition [facility] Outr Resulting Lab, Pathology & Laboratory Provider General acute hospital [address] [place] [address] Social History Tobacco Use Types Packs/Day Years Used Date Never Assessed Sex Assigned at Date Recorded Not on file documented as of this encounter Plan of Treatment Not on filedocumented as of this encounter Procedures Procedure Name Priority Date/Time Associated Comments Diagnosis CHLAMYDIA/N. Routine 12/27/2020 10:45 Results for this GONORRHOEAE AMPLIFIED EST proced ure are in RNA the results section. documented in this encounter Results CHLAMYDIA/N. GONORRHOEAE AMPLIFIED RNA (12/27/2020 10:45 EST) Pathologist Sig nature Gonococcus Result Negative Negative [facility] Chlamydia Result Negative Negative [facility] Specimen Swab - Entire endocervix (body structure ) Performing Organization Address City/State/ZIP Code Phon e Number [facility] [address] [place] [address] SERVICES documented in this encounter Visit Diagnoses Not on filedocumented in this encounter Care Teams Data Security Consultant Relationship Specialty Start Date End Date Caty Trinidad MD PCP - General 11/30/[address] [place] [phone] documented as of this encounter
--- OUTSIDE RECORDS SUMMARY | 2022-08-08 09:33 | XMS_ITS | Encounter Summary ---
:1990 Author Organization [facility] Address [address] [place] [address] Care Team Providers Name Role Phone Caty Trinidad MD Primary Care Provider Encounter Details Date Type Department Care Team Description 12/20/2010 Results Only [facility] Mathew Benjamin, [facility] Laboratory Services - [id number] [place] [address] [phone] Social History Tobacco Use Types Packs/Day Years Used Date Never Assessed Sex Assigned at Date Recorded Not on file documented as of this encounter Plan of Treatment Not on filedocumented as of this encounter Procedures Procedure Name Priority Date/Time Associated Diagnosis Comme [facility] CYTOPATHOLOGY Routine 12/20/2010 0:00 EST Results for this procedure are i n the results section . documented in this encounter Results CYTOPATHOLOGY (12/20/2010 0:00 EST) Pathology Report: CYTOPATHOLOGY REPORT ? [facility] Reports generated via [employer] interface contain original data; ? however they are lacking the format of the original report. ? Caution should be taken when reading/interpreting unformatted reports. ? Name: ? BEVERLY, NERIS ? Accession #: ? [id number] ? : ? 1990 (Age: 20) ??F ?Collect Date: ? 12/20/2010 ? Location: ? [facility] ? R eceive Date: ? 12/21/2010 ? Provider: BRYSON BENJAMIN CNM ? Copy to: ? Final Report ? SPECIMEN ADEQUACY ? Satisfactory for Eval uation ? - transformation zone compon ent present ? GENERAL CATEGORIZATION ? Epithelial Cell Abnor mality ? INTERPRETATION ? Squamous Cell Abnorma lity - Atypical squamous cells, undetermined ? significance (ASC-US). ? EDUCATIONAL NOTES/RECOMMENDA TIONS ? FA recommends cynthia wing the 2006 Consensus Guidelines for the Management of Women with Abnormal Cervi kalyn Cancer Screening Tests (JLGTD, ? 2007;11(4):201-222). ??Conse nsus guidelines are available online at ? www.ASCCP.org. ? Last Menstural Period: 4/3/1 0 ? Menstural/ Status: ? Previous Gynecologic Patholo gy: ASC-US: 11/24/ ? HPV: + 2/19/10 ? Treatment History: Colposcop y ? Other: Additional clinical i nformation: //10 sq. met. ? Specimen/Source: ??Pap Test, Cervix/Endocervix, ThinPrep Imaging System with ? manual evaluation ? Document reviewed and electr onically signed by: ? VIOLA C CARCAMO MD ? Report ??Date: 03/06/ 2011 10:34 ? HPV with Pap Test ? Date Ordered: ? 0 12/25/2010 ? Status: ?? Signed Out ?Date Complete: ? 01/04/2011 ? By: ??System Interface ? Date Reported: ? 01/04/2011 ? Interpretation ? RESULT: Positive for one or more of HPV types 16,18,31,33,35,39,45, ? 51,52,56,58,59, or 68. These high/intermediate risk HPV ? types are associated with dy splasia and some cervical ? cancers. ? Comments ? Document reviewed and electr onically signed by: ? System Interface ? Report date: 03/10/20 11 ? By the signature above, the attending physician certifies that he/she has ? personally conducted a gross and/or microscopic examination of the described ? specimens and rendered or co nfirmed the above diagnosis. ? End of Report ? Specimen Performing Organization Address City/State/[facility] Code Phon e Number [facility] [address] [phone] SERVICES [facility] [address] [place] [address] documented in this encounter Visit Diagnoses Not on filedocumented in this encounter Care Teams Laboratory Courier Relationship Specialty Start Date End Date Caty Trinidad MD PCP - General 11/30/09 [address] [place] [phone] documented as of this encounter
--- OUTSIDE RECORDS SUMMARY | 2022-08-08 09:33 | XMS_ITS | Encounter Summary ---
:1990 Author Organization [facility] Address [address] [place] [address] Care Team Providers Name Role Phone Caty Trinidad MD Primary Care Provider Reason for Visit Reason Comments Previous With Abnormality heart defect Consultation (Routine) - Closed Specialty Diagnoses / Procedures Referred By Contact Refer red To Contact Genetics / Obstetrics Diagnoses prev child with septal defects Cortney Mckeon [facility] Project Lead 5l and Gynecology Procedures full slot N, CNM [address], [place] [phone] Referral ID Status Reason Start Date Expiration Date Visits Requ ested Visits Authorized [id number] Closed 09/09/2015 09/08/2016 2 2 Encounter Details Date Type Department Care Team Description 11/22/2015 Office Visit Obstetrics and Fran, Florina Encounter for genetic counseling; Gynecology at [facility], [facility] Family history of congenital anomaly [facility] [address] [place] OBSTETRICS & [phone] GYNECOLOGY [phone] [address] [address] Social History Tobacco Use Types Packs/Day Years [...] on file documented as of this encounter Progress Notes Florina Peters, [place] - 11/22/2015 11:00 AM EST Genetic Counseling Note Neris Suh is a 25 y.o. female currently at 19w2d gestation. She was referred to the Diagnosis Program by Cortney Mckeon CNM. I met with Neris for a 30 minute genetic counseling visit. She was accompanied to the visit by her partner, Andres. Chief Complaint Patient presents with ??? Previous With Abnormality heart defect Family History Problem (# of Occurrences) Relation (Name,Age of Onset) Abdominal Aortic Aneurysm (1) Father (59) Heart Defect (1) Son: surgery at age 5y The reported family history was otherwise unremarkable for intellectual disability, congenital anomalies, recurrent loss, or known genetic conditions. A pedigree was obtained and will be scanned into Neris's electronic medical record. Neris is of French, [place], [place]is[place], [place] ancestry. Andres is of French, [place] ancestry. Consanguinity is denied. Obstetric History T2 TAB0 SAB0 E0 M0 L2 # Outcome Date GA Lbr Timi/2nd Weight Sex Delivery Anes PTL Lv 3 Current 2 Term 11/07/10 40w1d 3.6 kg (7 lb 15 oz) M Vag-Spont N Y 1 Term 11/20/06 41w2d 3.572 kg (7 lb 14 oz) F Vag-Spont N Y Patient's last menstrual period was 07/10/2015. Estimated Date of Delivery: 04/15/16 based on LMP. Screening Results Test Result ??? Cystic fibrosis carrier screen ngeative- reportedly in past ??? Thalassemia screen MCV within normal limits (80.8 fL) Assessment Congenital heart defects are the most common type of defect affecting up to 1.0% of the general population. The majority of congenital heart defects are isolated, although some will be associatedwith a chromosomal or genetic syndrome or an environmental exposure. The family history as reported is consistent with an isolated congenital heart defect.The sibling of an individual with an isolated congenital heart defect has a 2.5 % risk to be affected. Their son Woo has 2 ASD's and will need surgery at some point possibly next summer. We would recommend a targeted ultrasound at 18-20 weeks and echocardiogram in each pregnacy for this couple. Aortic Aneurysms: There is a familial form of thoracic aortic aneurysms and aortic dissections (TAAD) The age of onset and presentation of the aortic disease are highly variable, as are the other vascular diseases and features associated with the aortic disease. Familial TAAD is primarily inherited inan autosomal dominant manner with variable expression and decreased penetrance. Neris has already been told she will need to be checked in her early 50's for this. Plan Following our visit, Neris Suh had a morphology ultrasound and maternal- medicine consultation with Dr. Kirti Enriquez. Please refer to her note for further details and recommendations. documented in this encounter Plan of Treatment Not on filedocumented as of this encounter Visit Diagnoses Diagnosis Encounter for genetic counseling Genetic counseling Family history of congenital anomaly Family history of congenital anomalies documented in this encounter Care Teams Welder Pipe Making Relationship Specialty Start Date End Date Caty Trinidad MD PCP - General 09/19/[address] [place] [address] documented as of this encounter
--- OUTSIDE RECORDS SUMMARY | 2022-08-08 09:33 | XMS_ITS | Encounter Summary ---
:1990 Author Organization [facility] Address [address] [place] [address] Care Team Providers Name Role Phone Caty Trinidad MD Primary Care Provider Encounter Details Date Type Department Care Team Description 07/07/2007 Results Only [facility] - Roxanne Cloud od, MORTGAGE COORDINATOR conversion [address] [place] [phone] (Wo rk) Social History Tobacco Use Types Packs/Day Years Used Date Never Assessed Sex Assigned at Date Recorded Not on file documented as of this encounter Plan of Treatment Not on filedocumented as of this encounter Procedures Procedure Name Priority Date/Time Associated Diagnosis Comme nts CYTOPATHOLOGY Routine 07/07/2007 0:00 EDT Results for this procedure are i n the results section . documented in this encounter Results CYTOPATHOLOGY (07/07/2007 0:00 EDT) Pathology Report: CYTOPATHOLOGY REPORT [facility] Reports generated via electronic interface contain kavin ginal data; however they are lacking the format of the original re port. Caution should be taken when reading/interpreting unfo rmatted reports. Name: ? NERIS PAUL ? Accession #: ? [id number] : ? 1990 (Age: 17) ??F ?Collect Date: ? 06/28 Location: ? [facility] ? Receive Date : ? 07/08/2007 Provider: ?ROXANNE METCALF MORTGAGE COORDINATOR Copy to: ? Specimen/Source: ? ThinPrep Pap Test, Cervix/Endocervix, processed on [employer] ThinPrep Imaging System, with manual evaluation Last Menstrual Period: ? Hormonal/Contraceptive Status: ? Depo-Provera Other: ? HPVA - HPV testing requested if ASC-US on the current ThinPrep Pap test. ? SPECIMEN ADEQUACY ? Satisfactory for Evaluation - transformation zone component present GENERAL CATEGORIZATION ? Negative for Intraepithelial Lesion or Malignan cy ? Document reviewed and electronically signed by: ? SHIRA Loyd(ASCP) ? Report Date: ??07/15/2007 07:31 End of Report Specimen Performing Organization Address City/State/ZIP Code Phon e Number [facility] [address] [place] [address] SERVICES [facility] [address] [place] [address] documented in this encounter Visit Diagnoses Not on filedocumented in this encounter Care Teams Planer Setter Relationship Specialty Start Date End Date Caty Trinidad MD PCP - General 11/30/[address] [place] [phone] documented as of this encounter
--- OUTSIDE RECORDS SUMMARY | 2022-08-08 09:33 | XMS_ITS | Encounter Summary ---
:1990 Author Organization [facility] Address [address] [place] [address] Care Team Providers Name Role Phone Unavailable Primary Care Provider Unavailable Encounter Details Date Type Department Care Team Description 11/02/2008 Before [facility] - Roxanne Mendoza, Converted Visit Maple conversion FINANCIAL ACCOUNTANT (Maple) [address] [place] [address] [place], [place] [phone] (Wo rk) Social History Tobacco Use Types Packs/Day Years Used Date Never Assessed Sex Assigned at Date Recorded Not on file documented as of this encounter Plan of Treatment Not on filedocumented as of this encounter Procedures Procedure Name Priority Date/Time Associated Diagnosis Comme [facility] CYTOPATHOLOGY Routine 11/02/2008 0:00 EST Results for this procedure are i n the results section . documented in this encounter Results CYTOPATHOLOGY (11/02/2008 0:00 EST) Pathology Report: CYTOPATHOLOGY REPORT ? [facility] ? LAB Reports generated via elect[employer]ic interface contain original data; ? however they are lacking the format of the original report. ? Caution should be taken when reading/interpreting unformatted reports. ? Name: ? BEVERLY, NERIS ? Accession #: ? [id number] ? : ? 1990 (Age: 18) ??F ?Collect Date: ? 11/02/2008 ? Location: ? [facility] ? Receive Date: ? 11/03/2008 ? Provider: ?ROXANNE SORIA FINANCIAL ACCOUNTANT ? Copy to: ? Specimen/Source: ? Pap Test, Cervix/Endocervix, ThinPrep Imaging System ? with manual evaluation ? Last Menstrual Period: ? 12/13/08 ? SPECIMEN ADEQUACY ? Satisfactory for Eval uation ? - transformation zone compon ent present ? GENERAL CATEGORIZATION ? Negative for Intraepi thelial Lesion or Malignancy ? INTERPRETATION ? Shift in kandice presen t suggestive of bacterial vaginosis. ? Document reviewed and electr onically signed by: ? Farooq N. Gideon, CT (ASCP) ? Report Date: ??01/08/ 2009 09:48 ? End of Report ? Specimen Performing Organization Address City/State/ZIP Code Phon e Number [facility] [address] [place] [address] SERVICES [facility] [address] [place] [address] documented in this encounter Visit Diagnoses Not on filedocumented in this encounter
--- OUTSIDE RECORDS SUMMARY | 2022-08-08 09:33 | XMS_ITS | Encounter Summary ---
:1990 Author Organization [facility] [place] [address] Care Team Providers Name Role Phone Caty Trinidad MD Primary Care Provider Encounter Details Date Type Department Care Team Description 05/13/2022 Interpretation Only [facility] [address] [place] [phone] [facility] [phone] (Wo rk) Social History Tobacco Use Types Packs/Day Years Used Date Never Assessed Sex Assigned at Date Recorded Not on file documented as of this encounter Plan of Treatment Not on filedocumented as of this encounter Procedures Procedure Name Priority Date/Time Associated Diagnosis Comme nts XR TIBIA FIBULA STAT 05/13/2022 6:58 PM Result s for this RIGHT EDT procedure are i n the results section. documented in this encounter Results XR Tibia Fibula Right (Generic) (05/13/2022 6:58 PM EDT) [facility] Method Time Signature PT CLASS E DH RAD ADMITDTTM [id number] DH RAD PT [facility] INFO [id number]^IRON^ DH RAD MARIAMA EXAM DESC XRTIBFALR^XR DH RAD Tibia +Fibula 2 Views Rt^RIS Anatomical Region Laterality Modality Right Radiographic Imaging Specimen (Source) Anatomical Collection Method Collection Time Re ceived Time Location / / Volume Laterality 05/13/2022 6:58 PM EDT Impressions 05/13/2022 7:10 PM EDT Acute foreshortened fracture of the mid tibia with approximately one half shaft width medial displacement of the distal fragment. Preliminary report signed by a [facility] Machine Turner or Fellow: Giancarlo Mckenna at 7:05 PM I have personally reviewed the image(s) and the resident's interpretation and agree with the findings, Kassidy Purdy MD at 05/13/2022 7:10 PM Thank you for letting us participate in the care of this patient. ??If you are a health care provider and have any questi ons regarding this report, please contact the number below. ??For patients who have questions please contact the health pet care technician that requested your imaging first. ? Narrative 05/13/2022 7:10 PM EDT EXAMINATION: XR Ankle 3 Views Min Rt, XR Tibia +Fibula 2 Views Rt CLINICAL HISTORY: injury TECHNIQUE: 2 views of Tib/Fib 3 views of the right ankle COMPARISON: None FINDINGS: Tib-fib: Acute foreshortened fracture of the mid tibia with approximately one half shaft width medial displacement of the distal fragment. Soft tissue swelling surrounding the fracture. No ac kalispel fracture of the fibula identified. Ankle: Ankle mortise is congruent. The m edial clear space is not widened on these nonweightbearing views. This talar dome and tibial plafond are intact. Procedure Note Kassidy Purdy MD - 05/13/2022 EXAMINATION: XR Ankle 3 Views Min Rt, XR Tibia +Fibula 2 Views Rt CLINICAL HISTORY: injury TECHNIQUE: 2 views of Tib/Fib 3 views of the right ankle COMPARISON: None FINDINGS: Tib-fib: Acute foreshortened fracture of the mid tibia with approximately one half shaft width medial displacement of the distal fragment. Soft tissue swelling surrounding the fracture. No ac kalispel fracture of the fibula identified. Ankle: Ankle mortise is congruent. The m edial clear space is not widened on these nonweightbearing views. This talar dome and tibial plafond are intact. IMPRESSION Acute foreshortened fracture of the mid tibia with approximately one half shaft width medial displacement of the distal fragment. Preliminary report signed by a [facility] Machine Turner or Fellow: Giancarlo Mckenna at 7:05 PM I have personally reviewed the image(s) and the resident's interpretation and agree with the findings, Kassidy Purdy MD at 05/13/2022 7:10 PM Thank you for letting us participate in the care of this patient. If you are a health care provider and have any questi ons regarding this report, please contact the number below. For patients w ho have questions please contact the health pet care technician that requested your imaging first. Mariama Donahue MD IMG DX ORDERABLES documented in this encounter Visit Diagnoses Not on filedocumented in this encounter Care Teams Traffic Inspector Relationship Specialty Start Date End Date Caty Trinidad MD PCP - General 09/19/[address] [place] [address] documented as of this encounter
--- OUTSIDE RECORDS SUMMARY | 2022-08-08 09:33 | XMS_ITS | Clinical Summary ---
:1990 Author Organization [place] [address] Care Team Providers Name Role Phone Caty Trinidad MD Primary Care Provider Allergies Active Allergy Reactions Severity Noted Date Comments Erythromycin Base Medications Medication Sig Dispensed Refills Start Date End Date Status PLUS, CALCIUM 0 08/04/2015 Active CARB, 27 mg iron- 1 mg TabletIndications: , Previous child born with ventricular septal defect, currently , not applicable or unspecified fetus VITAMIN B-6 25 mg 0 10/15/2015 A ctive TabletIndications: , Previous child born with ventricular septal defect, currently , not applicable or unspecified fetus diphenhydrAMINE Take 50 mg by 0 Active (BENADRYL) 50 mg mouth every 6 CapsuleIndications: hours as needed , Previous child for Itching. born with ventricular septal defect, currently , not applicable or unspecified fetus Encounters Date Type Specialty Care Team Description 05/14/2022 Interpretation Only Zen Roche ied fracture of MD Melania shaft of unspe cified fidel escobar e ncounter for closed frac ture 05/13/2022 Interpretation Only Alem Donahue MD 05/13/2022 Interpretation Only Alem Donahue MD from Last 3 Months Immunizations Name Administration Dates Next Due Diphtheria,pertussis,tetanus 02/06/1991, 06/13/1990, 990, 1990 Hepatitis B Vaccine, unspecified 06/29/1999, 01/16/1999, formulation Influenza Vaccine, Whole 08/08/2010 MMR Vaccine, Live 03/31/1997, 04/07/1990 Meningococcal Conjugate 04/29/2006 [place]une Polio Vaccine 02/06/1991, 06/13/1990, 05/09/1990, 1990 Td, adult 03/31/1997 Tdap Vaccine 04/25/2006 Tuberculin Skin Test, PPD 04/29/2006 Family History Medical History Relation Comments Abdominal Aortic Aneurysm Father Heart Defect Son surgery at age 5y Relation Status Comments Father Son Social History Tobacco Use Types Packs/Day Years [...] Assigned at Date Recorded Not on file Last Filed Vital Signs Vital Sign Reading Time Taken Comments Blood Pressure 122/72 11/22/2015 9:34 AM EST Pulse - - Temperature - - Respiratory Rate - - Oxygen Saturation - - Inhaled Oxygen Concentration - - Weight 94.1 kg (207 lb 6.4 oz) 11/22/2015 9:34 AM EST Height 162.6 cm (5' 4) 11/22/2015 9:34 AM EST Body Mass Index 35.6 11/22/2015 9:34 AM EST Plan of Treatment Health Maintenance Due Date Last Done Comments Covid-19 Vaccine (#1) 1990 HIV screen 2006 Hepatitis C Screening 2006 Tetanus vaccine 04/25/2016 04/25/2006, 03/31/1997, 02/06/1991, Additional history exists HPV test 2018 PAP Smear 2018 Influenza (Flu) vaccine (1 of 1 - 06/28/2022 08/08/2010 Influenza standard series) Tdap adult Completed 04/25/2006 Procedures Procedure Name Priority Date/Time Associated Diagnosis Comme nts XR TIBIA FIBULA Routine 05/14/2022 3:43 PM Unspecified fractur e Results for this RIGHT EDT of shaft of procedure are i n unspecified ulna, the result s initial encounter section. for closed fracture XR TIBIA FIBULA STAT 05/13/2022 6:58 PM Result s for this RIGHT EDT procedure are i n the results section. XR ANKLE MIN 3 STAT 05/13/2022 6:58 PM Results for this VIEWS RIGHT EDT procedure are i n the results section. from Last 3 Months Results XR Tibia Fibula Right (Generic) (05/14/2022 3:43 PM EDT)Only the most recent of2 resultswithin the time period is included. [facility] Method Time Signature PT CLASS I RAD ADMITDTTM [id number] RAD PT RAD INFO [id number]^MCLAR RAD LUDWIG^MELANIA EXAM DESC XRTIBFALR^XR RAD Tibia +Fibula 2 Views Rt^RIS Anatomical Region Laterality Modality Right Radiographic Imaging Specimen (Source) Anatomical Collection Method Collection Time Re ceived Time Location / / Volume Laterality 05/14/2022 3:43 PM EDT Impressions 05/14/2022 3:52 PM EDT Intraoperative views document internal fixation of a fracture of the tibia. Thank you for letting us participate in the care of this patient. ??If you are a health care provider and have any questi ons regarding this report, please contact the number below. ??For patients who have questions please contact the health career law clerk that requested your imaging first. ? Electronically signed by: Ruslan Jhaveri, [facility] ([phone]), at 05/14/2022 3:52 PM Narrative 05/14/2022 3:52 PM EDT EXAMINATION: XR Tibia +Fibula 2 Views Rt CLINICAL HISTORY: TIBIAL RODDING;S52.209 A Unspecified fracture of shaft of unspecified ulna, TECHNIQUE: 10 intraoperative fluoroscopic views of the right lower extremity COMPARISON: May 13, 2022 FINDINGS: There has been a fracture of the lower s haft of the tibia. Intraoperative views document the placement of an intramedull kiersten nail which has two proximal and two distal interlocking screws. Fracture ali gnment is improved. Procedure Note Hector Barba MD - 05/14/2022 EXAMINATION: XR Tibia +Fibula 2 Views Rt CLINICAL HISTORY: TIBIAL RODDING;S52.209 A Unspecified fracture of shaft of unspecified ulna, TECHNIQUE: 10 intraoperative fluoroscopic views of the right lower extremity COMPARISON: May 13, 2022 FINDINGS: There has been a fracture of the lower s haft of the tibia. Intraoperative views document the placement of an intramedull kiersten nail which has two proximal and two distal interlocking screws. Fracture ali gnment is improved. IMPRESSION Intraoperative views document internal f ixation of a fracture of the tibia. Thank you for letting us participate in the care of this patient. If you are a health care provider and have any questi ons regarding this report, please contact the number below. For patients w ho have questions please contact the health career law clerk that requested your imaging first. Electronically signed by: Ruslan Jhaveri, [facility] ([phone]), at 05/14/2022 3:52 PM Melania Roche MD IMG DX ORDERABLES XR Ankle Min 3 views Right (Generic) (05/13/2022 6:58 PM EDT) [facility] Method Time Signature PT CLASS E RAD ADMITDTTM [id number] RAD PT RAD INFO 90401^IRON^ RAD ALEM EXAM DESC XRANKMVR^XR RAD Ankle 3 Views Min Rt^RIS Anatomical Region Laterality Modality Ankle Right Radiographic Imaging Specimen (Source) Anatomical Collection Method Collection Time Re ceived Time Location / / Volume Laterality 05/13/2022 6:58 PM EDT Impressions 05/13/2022 7:10 PM EDT Acute foreshortened fracture of the mid tibia with approximately one half shaft width medial displacement of the distal fragment. Preliminary report signed by a [facility] Event Marketing Representative or Fellow: Giancarlo Mckenna at 7:05 PM [...] who have questions please contact the health career law clerk that requested your imaging first. ? Electronically signed by: Kassidy Purdy MD , [facility] ([phone]), at 05/13/2022 7:10 PM Narrative 05/13/2022 7:10 PM EDT EXAMINATION: XR Ankle 3 Views Min Rt, XR Tibia +Fibula 2 Views Rt CLINICAL HISTORY: injury TECHNIQUE: 2 views of Tib/Fib 3 views of the right ankle COMPARISON: None FINDINGS: Tib-fib: Acute foreshortened fracture of the mid tibia with approximately one half shaft width medial displacement of the distal fragment. Soft tissue swelling surrounding the fracture. No ac [place] fracture of the fibula identified. Ankle: Ankle [...] tissue swelling surrounding the fracture. No ac [place] fracture of the fibula identified. Ankle: Ankle mortise is congruent. The m edial clear space is not widened on these nonweightbearing views. This talar dome and tibial plafond are intact. IMPRESSION Acute foreshortened fracture of the mid tibia with approximately one half shaft width medial displacement of the distal fragment. Preliminary report signed by a [facility] Event Marketing Representative or Fellow: Giancarlo Mckenna at 7:05 PM [...] ho have questions please contact the health career law clerk that requested your imaging first. Electronically signed by: Kassidy Purdy MD , [facility] ([phone]), at 05/13/2022 7:10 PM Alem Donahue MD IMG DX ORDERABLES from Last 3 Months Insurance Payer Benefit Plan / Subscriber ID Effective Dates Phone Addre ss Type Group [id number] [facility] [phone] [address] [place], [place] [phone] (Work) [phone] Care Teams Well Drill Operator Relationship Specialty Start Date End Date Caty Trinidad MD PCP - General 09/19/[address] [place], [place] [id number]
--- OUTSIDE RECORDS SUMMARY | 2022-08-08 09:33 | XMS_ITS | Encounter Summary ---
:1990 Author Organization [facility] Address [address] [place] [address] Care Team Providers Name Role Phone Caty Trinidad MD Primary Care Provider Encounter Details Date Type Department Care Team Description 07/24/2006 Results Only [facility] - David Orozco MD Maple conversion [address] [place], [place] [address] [place] [address] [phone] Social History Tobacco Use Types Packs/Day Years Used Date Never Assessed Sex Assigned at Date Recorded Not on file documented as of this encounter Plan of Treatment Not on filedocumented as of this encounter Procedures Procedure Name Priority Date/Time Associated Diagnosis Comme nts SURGICAL PATHOLOGY Routine 07/24/2006 0:00 EDT Re sults for this procedure are i n the results section. documented in this encounter Results SURGICAL PATHOLOGY (07/24/2006 0:00 EDT) Pathology Report: SURGICAL PATHOLOGY REPORT [facility] Reports generated via electronic interface contain kavin ginal data; LAB however they are lacking the format of the original re port. Caution should be taken when reading/interpreting unfo rmatted reports. Name: ? NERIS PAUL ? Accession #: ? [id number] ? : ? 1990 (Age: 16) ??F ? Collect Date: ? 07/24/2006 ? Location: ? [facility] ? Receive Date: ? 006 ? Provider: DAVID OROZCO MD Copy to: CATY YANG MD ? Final Pathologic Diagnosis: ? Gallbladder, cholecystectomy: 1. ?Chronic cholecystitis. 2. ? Cholelithiasis (gross diagnosis). Document reviewed and electronically signed by: Tim Moreno MD Report ??Date: 07/26/2006 17:15 By the signature above, the attending physician certif ies that he/she has personally conducted a gross and/or microscopic examin ation of the described specimens and rendered or confirmed the above diagnosi s. Specimen(s) Received: ? Gallbladder Clinical History: ? Biliary colic Gross Description: ? Received in formalin labelled Vikash and gallbladder is a gallbladder measuring 9.0 cm in length a nd 3.0 cm in diameter. ??The specimen includes a 1.0 cm segment of cystic duct. ? ?A small cystic duct lymph node measuring 0.5 x 0.4 x 0.3 cm is identified. ??The serosal surface of the gal lbladder is dark collier, smooth and glistening. ??The gallbladder is lined by a velvety dark green mucosa. The wall measures 0.3 cm in thickness. ??Within the g allbladder are approximately ten mixed calc amber, each measuring approximately 0.4 cm in greatest dimension. ??Three financial services sales representative sectio ns of gallbladder and a financial services sales representative section of the cystic duct node are submitted in one c assette. ??(FRANNY Amaya)/meagan End of Report Specimen Performing Organization Address City/State/ZIP Code Phon e Number [facility] [address] [place] [address] SERVICES [facility] [address] [place] [address] documented in this encounter Visit Diagnoses Not on filedocumented in this encounter Care Teams Income Tax Adjuster Relationship Specialty Start Date End Date Caty Trinidad MD PCP - General 11/30/[address] [place] [address] [address] [place] [phone] documented as of this encounter
--- OUTSIDE RECORDS SUMMARY | 2022-08-08 09:33 | XMS_ITS | Encounter Summary ---
:1990 Author Organization [facility] Address [address] [place] [address] Care Team Providers Name Role Phone Caty Trinidad MD Primary Care Provider Encounter Details Date Type Department Care Team Description 01/31/2021 Lab Requisition [facility] Outr Resulting Lab, Pathology & Laboratory Provider [facility] [address] [place], [place] [id number] Social History Tobacco Use Types Packs/Day Years Used Date Never Assessed Sex Assigned at Date Recorded Not on file documented as of this encounter Plan of Treatment Not on filedocumented as of this encounter Procedures Procedure Name Priority Date/Time Associated Diagnosis Comme nts COVID-19 TEST [facility] Today 01/31/2021 9:35 EDT LAB PCR COVID-19 TESTING Routine 01/31/2021 9:35 EDT Resu lts for this procedure are i n the results section. documented in this encounter Results COVID-19 TEST [facility] LAB PCR (01/31/2021 9:35 EDT) Specimen Swab - Entire nasopharynx (body structur e) Performing Organization Address City/State/ZIP Code Phon e Number [facility] [address] [place] [address] SERVICES COVID-19 TESTING (01/31/2021 9:35 EDT) COVID-19 rt-PCR Negative Negative [facility] Result Comment: [facility] This test has not been FDA c leared or approved. This test has been authorized by FDA under an EUA for use by authorized laboratories. This test has been authorized only for detection of nucleic acid fro SERVICES m , not for any oth er viruses or pathogens. This test is only authorized for the duration of the declaration that circumstances exist justifying the authorization of emergency use of in vitro d iagnostic tests for detectio n and/or diagnosis of 2019-nCoV under section 564(b)(1) of Act, 21 U.S.C ?? 360bbb-3(b) (1), unless the authorization is terminated or revoked sooner. Negative results do not prec lude 2019-nCoV infection and should not be used as the sole basis for treatment or other patient management decisions. Negative results must be combined with clinical observa tions, patient history, and epidemiological informatio n. This test was developed and its performance characteristics determined by [facility]. It has not been cleared or approved by the US Food and Drug Administration. FDA does not require this test to go through premarket FDA review. This t est is used for clinical purposes. It should not be regarded as investigational or for research. This laboratory is certified under the Clinical Laboratory Improvement Amendm ents (CLIA) as qualified to perform high complexity clinical laboratory testing. This test is based on the CD C COVID-19 Emergency Use Authorization (EUA) assay, with minor modification as defined by the FDA Performed on the [employer] 7 Flex RT-PCR System. Performing Lab [facility] SERVICES Specimen Swab Performing Organization Address City/State/ZIP Code Phon e Number [facility] [address] [place] [address] SERVICES documented in this encounter Visit Diagnoses Not on filedocumented in this encounter Care Teams Headstart Teacher Relationship Specialty Start Date End Date Caty Trinidad MD PCP - General 11/30/[address] [place] [phone] documented as of this encounter
--- OUTSIDE RECORDS SUMMARY | 2022-08-08 09:33 | XMS_ITS | Encounter Summary ---
:1990 Author Organization [facility] Address [address] [place] [address] Care Team Providers Name Role Phone Caty Trinidad MD Primary Care Provider Encounter Details Date Type Department Care Team Description 05/02/2018 Results Only [facility]- PRISM Roxanne Mendoza BEAM PRESS OPERATOR [phone] [facility] [place] [address] (Wo rk) Social History Tobacco Use Types Packs/Day Years Used Date Never Assessed Sex Assigned at Date Recorded Not on file documented as of this encounter Plan of Treatment Not on filedocumented as of this encounter Procedures Procedure Name Priority Date/Time Associated Diagnosis Comme nts PAP TEST- RESULT Routine 05/02/2018 0:00 EDT Resu lts for this ONLY procedure are i n the results section. documented in this encounter Results PAP TEST- RESULT ONLY (05/02/2018 0:00 EDT) Pathology Report: CYTOPATHOLOGY REPORT [facility] Reports generated via electronic interface contain kavin ginal data; SERVICES however they are lacking the format of the original re port. Caution should be taken when reading/interpreting unfo rmatted reports. Name: ? NERIS PAUL ? Accession #: ? [id number] : ? 1990 (Age: [age]) ??F ?Collect Date: ? 2017 Location: ? [facility] ? Receive Date : ? 05/05/2018 Provider: ?ROXANNE MENDOZA BEAM PRESS OPERATOR Copy to: ?EMANUEL MCKEON MD ? Specimen/Source: ? Pap Test, Cervix, ThinPrep Imaging System with manual evaluation Last Menstrual Period: ? 04/12/18 ? SPECIMEN ADEQUACY ? Satisfactory for Evaluation - transformation zone component present - scant squamous epithelial component secondary to exc essive inflammation GENERAL CATEGORIZATION ? Negative for Intraepithelial Lesion or Malignan cy ? Document reviewed and electronically signed by: ? SHIRA Spring(ASCP) ? Report Date: ??05/13/2018 11:30 End of Report Specimen Performing Organization Address City/State/ZIP Code Phon e Number [facility] [address] [place] [address] SERVICES documented in this encounter Visit Diagnoses Not on filedocumented in this encounter Care Teams Cyber Forensics Analyst Relationship Specialty Start Date End Date Caty Trinidad MD PCP - General 11/30/[address] [place] [phone] documented as of this encounter
--- OUTSIDE RECORDS SUMMARY | 2022-08-08 09:33 | XMS_ITS | Encounter Summary ---
:1990 [place] [address] Care Team Providers Name Role Phone Caty Trinidad MD Primary Care Provider Encounter Details Date Type Department Care Team Description 10/14/2015 Orders Only Obstetrics and Shawnee Stevens MD Previous child born Gynecology at [facility] with ventricular [facility] [address] septal defect, [facility] & currently , [place] [address] GYNECOLOGY not applicable or [phone] [place], [place] [address] unspecified fetus Social History Tobacco Use Types Packs/Day Years Used Date Never Assessed Sex Assigned at Date Recorded Not on file documented as of this encounter Plan of Treatment Not on filedocumented as of this encounter Results US OB Targeted Morphology [...] 10:34 am) Patient Info ID #: ? [id number] ?: ??[birth year] (25 yrs)(F) Name: ? NERIS PAUL ?Visit Date: 11/22/2015 10:17 am Performed By Performed By: ? Kinsey Herrera RDMS Attending: ?Elizabeth Enriquez MD ? ?Jasmin Referred By: ?LAMINE LÓPEZ-ARMAAN Bennett CN Service(s) Provided ??[facility] - Detailed Morphology - Genetics - [id number] Indications ??SON W/ 2 SEPTAL DEFECTS, MORPH; [...] ? 16.1 - 18.3 HC/AC: ? 1.25 ?1.09 - 1.39 FL/BPD: ?73.2 ??% FL/AC: ? [...] Tract: ?Visualized L Outflow Tract: ?Visualized Cardiac Smithers: ? Visualized Diaphragm: ?Visualized Abdomen Ventral Wall: [...] 016 10:34 am) Patient Info ID #: [id number] : [birth year] (25 y rs)(F) Name: NERIS PAUL Visit Date: 11/22 10:17 am Performed By Performed By: Kinsey Herrera RDMS Attending: Elizabeth Enriquez MD Referred By: LAMINE HODGE [facility] Service(s) Provided [facility] - Detailed Morphology - Genetics - [id number] Indications SON W/ 2 SEPTAL DEFECTS, MORPH; [...] Tract: Visualized L Outflow Tract: Visualized Cardiac Smithers: Visualized Diaphragm: Visualized Abdomen Ventral Wall: Visualized [...] currently , not applicable or unspecified fetus Previous child born with ventricular [place] defect, currently , not applicable or unspecified fetus documented in this encounter Care Teams Beach Attendant Relationship Specialty Start Date End Date Caty Trinidad MD PCP - General 09/19/[address] [place] [address] documented as of this encounter
--- OUTSIDE RECORDS SUMMARY | 2022-08-08 09:33 | XMS_ITS | Continuity of Care Document ---
:1990 Author Organization [facility] Address [address] [place] [id number]- Care Team Providers Name Role Phone LORRAINE GILMAR Primary Care Physician Unavailable Encounter BVT Date(s): 05/13/22 - 05/15/[address] [address] [phone] Encounter Diagnosis S/P ORIF (open reduction internal fixation) fracture (Discharge Diagnosis) - 05/15/22 Open right tibial fracture (Discharge Diagnosis) - 05/15/22 Discharge Disposition: Home or Self Care Attending Physician: CHEKO LOREDO Admitting Physician: CHEKO LOREDO Allergies, Adverse Reactions, Alerts Substance Reaction Severity Status erythromycin Rash Unknown Active Assessment and Plan Extracted from: Title: Discharge Note - POD 1 s/p Right Author: Cherie Hurley PA-C Date: 05/15/22 tibia IM jumana Discharge Plan 1.??Open right tibial fracture??S82.231B 2.??S/P ORIF (open reduction internal f ixation) fracture??Z98.890 Assessment:??POD [1],??right??tibia??I&D ??& IM??jumana ?? Plan:??Patient continues to improve and may be discharged home.? The patient does not live locally but she will??follow-up??at her preferred??orthopedists??near her home in 2 weeks??with an x-ray??of her right tibia. ??At this time sutures ??should be removed??from the distal incisions.?? Patient does have absorbable Monocryl??in the proximal incision??which will not require removal. We will have the patient advance with ou tpatient??physical therapy. ??Physical therapy has been scheduled for the patient??near her home. ??She is instructed to be 25% weightbearing on her right lower e xtremity??for 6 weeks or until signs of fracture healing.?? Patient has postop??pain??management pre scription??of #30 tramadol. Continue use of Tylenol not to exceed 3,000mg per day. Continue [aspirin 81 mg twice daily for 4 weeks]??for DVT prophylaxis.?? Continue??SASHA hose stockings??during the day while awake??for swelling and circulation. The patient is instructed on strict ice and elevation of the right lower extremity??to help mitigate the risk of compartment syndrome??and??to help with swelling. Patient should continue to monitor inci clarence for swelling, redness or increased drainage and contact her local orthopedic??office if there are any concerns. Patient will follow-up in 2 weeks for th eir first postoperative check in??her local??orthopedics??outpatient clinic.?? Patient will follow up sooner if needed. Continue home medications. Orders: External Referral, Physical Therapy, S/P right tibial IM rodding (DOS 05/14/22), [facility] PT, 05/15/22 9:50:00 EDT, Please evaluate and treat patient for status post right tibial IM rodding (DOS 05/14/22). Referral Ambulatory, Physical Therapy, S/P right tibial IM rodding (DOS 05/14/22), [facility] [place], External Referral, 05/15/22 9:50:00 EDT, Please evaluate and treat patient for status post right tibial IM rodding (DOS 05/14/22)., 05/15/22 9:50:0 0 EDT, Fracture of fibula with... All Diagnoses This Visit Open right tibial fracture S/P ORIF (open reduction internal fixat ion) fracture Patient Discharge Condition Good Discharge Disposition To home Patient Education Tibial Plateau Fracture Treated With SANJANA F, Care After Tibial and Fibular Fractures Follow Up No qualifying data available Extracted from: Title: General Medical Problem *ED Author: ALEM PERDUE Date: 05/13/22 History of Present Illness 31-year-old female presents for evaluati on of right ankle and leg pain. Patient was walking down some cement stairs when her ankle and knee gave out. She has a history of weak ankle. There is bleeding from an open wound to the anterior leg. Denies any numbness or tingling. No other injuries. Review of Systems Skin symptoms: Laceration right lower an terior leg. Musculoskeletal symptoms: Muscle pain. Neurologic symptoms: Negative except as documented in HPI. Health Status Allergies: Allergic Reactions (Selected) Unknown Erythromycin- No reactions were document ed.. Medications: (Selected) Inpatient Medications Ordered Dilaudid 1 mg/mL injectable solution: 1 mg = 1 mL, IV Push, q2hr, PRN: Pain Documented Medications Documented cetirizine: 0 Refill(s). Past Medical/ Family/ Social History Medical history: No active or resolved past medical histo ry items have been selected or recorded.. Surgical history: No active procedure history items have b een selected or recorded.. Family history: No family history items have been select ed or recorded.. Social history: Social & Psychosocial History Social History Alcohol Current, 1-2 times per month Substance Abuse Never Tobacco Never tobacco user Tobacco Use:. Electronic Cigarette/Vaping Electronic Cigarette Use: Never. Psychosocial History No active psychosocial history has been recorded . Problem list: No qualifying data available . Physical Examination Vital Signs Vital Signs 05/13/2022 18:16 EDT Temperature Temporal Artery 36.7 DegC Peripheral Pulse Rate 97 bpm Respiratory Rate 18 br/min Systolic Blood Pressure 138 mmHg Diastolic Blood Pressure 83 mmHg SpO2 99 % . Measurements 05/13/2022 18:25 EDT Height/Length Dosing 164.000 cm Weight Dosing 113.400 kg 05/13/2022 18:16 EDT Height/Length Estimated 164.000 cm Weight Estimated 113.400 kg . Basic Oxygen Information 05/13/2022 18:16 EDT Oxygen Therapy Room air . General: non-toxic, no respiratory distr ess, comfortable HEENT: normocephalic, atraumatic, lids a nd lashes are normal, PERRL, EOMI, anicteric sclera, no conjunctival injection, moist oral mucosa Musculoskeletal: Small bleeding lacerati on anterior lower leg, significant pain to palpation along right lower leg, no pain to palpation over right knee or ankle, no metatarsal tenderness, 2+ dorsal pul se, sensation intact, Achilles intact, n o pain to popliteal fossa, otherwise full range of motion of arms and legs, no tenderness to palpation, no clubbing, cyanosis or edema Neurologic: appropriate for age, strengt h normal Psych: alert and oriented Skin: As above, otherwise warm and dry, no petechiae, no lesions Medical Decision Making Radiology results: X-ray (ST) X-Ray: ?? XR Ankle 3 Views Min Rt ?? 05/13/22 19:10:56 EXAMINATION: XR Ankle 3 Views Min Rt, XR Tibia +Fibula 2 Views Rt CLINICAL HISTORY: injury TECHNIQUE: 2 views of Tib/Fib 3 views of the right ankle COMPARISON: None FINDINGS: Tib-fib: Acute foreshortened fracture of the mid tibia with approximately one half shaft width medial displacement of the distal fragment. Soft tissue swelling surrounding the fracture. No ac cole fracture of the fibula identified. Ankle: Ankle mortise is congruent. The m edial clear space is not widened on these nonweightbearing views. This talar dome and tibial plafond are intact. IMPRESSION: Acute foreshortened fracture of the mid tibia with approximately one half shaft width medial displacement of the distal fragment. Preliminary report signed by a [facility] Computing Tutor or Fellow: Giancarlo Mckenna at 7:05 PM I have personally reviewed the image(s) and the resident? s interpretation and agree with the findings, Zaire Purdy MD at 05/13/2022 7:10 PM Thank you for letting us participate in the care of this patient. If you are a health care provider and have any questi ons regarding this report, please contact the number below. For patients w ho have questions please contact the health out of school hours care worker that requested your imaging first. ?? Signed By: ZAIRE PURDY ?? XR Tibia +Fibula 2 Views Rt ?? 05/13/22 19:10:56 EXAMINATION: XR Ankle 3 Views Min Rt, XR Tibia +Fibula 2 Views Rt CLINICAL HISTORY: injury TECHNIQUE: 2 views of Tib/Fib 3 views of the right ankle COMPARISON: None FINDINGS: Tib-fib: Acute foreshortened fracture of the mid tibia with approximately one half shaft width medial displacement of the distal fragment. Soft tissue swelling surrounding the fracture. No ac cole fracture of the fibula identified. Ankle: Ankle mortise is congruent. The m edial clear space is not widened on these nonweightbearing views. This talar dome and tibial plafond are intact. IMPRESSION: Acute foreshortened fracture of the mid tibia with approximately one half shaft width medial displacement of the distal fragment. Preliminary report signed by a [facility] Computing Tutor or Fellow: Giancarlo Mckenna at 7:05 PM I have personally reviewed the image(s) and the resident? s interpretation and agree with the findings, Zaire Purdy MD at 05/13/2022 7:10 PM Thank you for letting us participate in the care of this patient. If you are a health care provider and have any questi ons regarding this report, please contact the number below. For patients w ho have questions please contact the health out of school hours care worker that requested your imaging first. ?? Signed By: ZAIRE PURDY . 31-year-old female presents for evaluati on of right foot and ankle pain after fall. X-ray shows tibial fracture. She is neurologically intact. This is an open fracture. IV antibiotics were ordered. Case was discussed with orthopedics. She was seen in consult with Dr. Loredo who will admit patient for surgical repair tomorrow. Impression and Plan Diagnosis Open fracture ([id number] T14.8XXA, Discha rge, Medical) Tibia fracture ([id number] S82.209A, Disch arge, Medical) Plan Condition: Stable. Disposition: Place in Observation Unit. Functional Status 05/15/22 ADLs Independent 05/15/22 History of Fall in Last 3 Months Polo Yes Mobility Nick Slightly limited 05/13/22 Bathing ADL Index Independent (2) Dressing ADL Index Requires assistance (1) Toileting ADL Index Requires assistance (1) Transferring Bed or Chair ADL Index Requires assistanc e (1) Continence ADL Index Requires assistance (1) 05/13/22 Recent Travel History No recent travel Family Member Travel History No recent travel COVID-19 Screening None Medications acetaminophen 500 mg oral tablet 1,000 mg = 2 tab(s), Oral, q8hr RT, PRN PRN Pain - Moderate, # 50 tab(s), 0 Refill(s), 06/15/22, OTC(Rx) Start Date: 05/15/22 Stop Date: 06/15/22 Status: Orderedaspirin 81 mg oral delayed release tablet 81 mg = 1 tab(s), Oral, BIDWM, Take for 4 weeks post-op for DVT prevention., 0 Refill(s), 06/15/22 Start Date: 05/15/22 Stop Date: 06/15/22 Status: Orderedcetirizine 0 Refill(s) Start Date: 05/13/22 Status: OrderedtraMADol 50 mg oral tablet 50 mg = 1 tab(s), Oral, q6hr, PRN PRN Pain - Severe, Take for severe post-op pain only., # 30 tab(s), 0 Refill(s), 06/15/22, Pharmacy: [id number], 1 tab(s) Oral q6hr,PRN:Pain - Severe,Instr:Take for severe post-op pain only., 164, cm, 05/13/22 2... Start Date: 05/15/22 Stop Date: 06/15/22 Status: Ordered Mental Status 05/15/22 Sensory Perception Nick No impairment Level of Consciousness Alert Problem List Condition Effective Dates Status Health Status Informant S/P ORIF (open reduction internal Active fixation) fracture(Confirmed) Open right tibial fracture(Confirmed) Active Open right tibial fracture(Confirmed) Active Results Laboratory List Name Date Automated Differential Standard 05/13/22 CBC w/Diff Standard 05/13/22 Comprehensive Metabolic Panel Standard (CMP Standard) 05/13/22 SARS-CoV-2 (COVID-19) PCR (GeneXpert) 05/13/22 Most recent to oldest [Reference Range]: 1 NRBC Auto Pct [0.00-0.20 %] 0.00 % (05/13/22 8:17 PM) Creatinine [0.50-0.90 mg/dL] 0.86 mg/dL (05/13/22: PM) AGAP [10.0-18.0 mmol/L] 16.8 mmol/L (05/13/22 PM) Glucose Lvl [70-100 mg/dL] 120 mg/dL *HI* (05/13/22 PM) Hct [34.1-44.9 %] 39.0 % (05/13/22 PM) Hgb [11.5-15.7 gm/dL] 13.0 gm/dL (05/13/22: PM) Lymph Auto [15.0-45.0 %] 12.8 % *LOW* (05/13/22 PM) MCH [25.6-32.2 pg] 27.4 pg (05/13/22 PM) MCHC [32.3-36.5 gm/dL] 33.3 gm/dL (05/13/22 PM) MCV [79.4-94.8 fL] 82.1 fL (05/13/22: PM) [place] Auto [4.0-14.0 %] 6.9 % (05/13/22: PM) MPV [9.4-12.4 fL] 10.6 fL (05/13/22: PM) Neutro Auto [50.0-75.0 %] 78.8 % *HI* (05/13/22 PM) Osmolality [268.0-291.0 mOsm/kg] 277.7 mOsm/kg (05/13/22: PM) Platelet [150-400 x10(3)/uL] 340 x10(3)/uL (05/13/22:17 PM) RBC [3.93-5.22 x10(6)/uL] 4.75 x10(6)/uL (05/13/22:17 PM) Sodium Lvl [136-145 mmol/L] 138 mmol/L (05/13/22: PM) Total Protein [6.6-8.7 gm/dL] 7.5 gm/dL (7/17/22 8:17 PM) Albumin Lvl [3.50-5.20 gm/dL] 4.20 gm/dL (05/13/22 8:17 PM) Alk Phos [35-105 IntUnit/L] 102 IntUnit/L (05/13/22 8:17 PM) ALT [0-33 IntUnit/L] 27 IntUnit/L (05/13/22 8:17 PM) AST [0-32 IntUnit/L] 22 IntUnit/L (05/13/22 8:17 PM) Basophil Auto [0.0-2.0 %] 0.3 % (05/13/22 8:17 PM) Bili Total [0.0-1.3 mg/dL] 0.3 mg/dL (05/13/22 8:17 PM) CO2 [22-29 mmol/L] 21 mmol/L *LOW* (05/13/22 8:17 PM) Eos Auto [0.0-8.0 %] 0.7 % (05/13/22 8: PM) WBC [4.0-10.0 x10(3)/uL] 13.1 x10(3)/uL *HI* (05/13/22 8:17 PM) BUN [6-23 mg/dL] 15 mg/dL (05/13/22 8:17 PM) Calcium Lvl [8.6-10.2 mg/dL] 9.4 mg/dL (05/13/22 8:17 PM) Chloride [98-107 mmol/L] 104 mmol/L (05/13/22 8:17 PM) Potassium Lvl [3.5-5.1 mmol/L] 3.8 mmol/L (05/13/22 8:17 PM) Lymph Absolute [1.20-3.70 x10(3)/uL] 1.68 x10(3)/uL (05/13/22 8:17 PM) [place] Absolute [0.20-0.40 x10(3)/uL] 0.91 x10(3)/uL *HI* (05/13/22 8:17 PM) Eos Absolute [0.04-0.54 x10(3)/uL] 0.09 x10(3)/uL (05/13/22 8:17 PM) NRBC Absolute [0.00-0.01 x10(3)/uL] 0.00 x10(3)/uL (05/13/22 8:17 PM) Neutro Absolute [1.56-6.13 x10(3)/uL] 10.34 x10(3)/uL *HI* (05/13/22 8:17 PM) RDW-CV [11.7-14.4 %] 13.6 % (05/13/22 8:17 PM) GFR NonAfrican Niuean [>=60 mL/min/1.73 m2] 76 mL/mi n/1.73 m2 (05/13/22 8:17 PM) SARS-CoV-2 (COVID-19) PCR (GeneXpert) [Negative] Negat louise (05/13/22 8:17 PM) Immature Gran % [0.00-2.30 %] 0.50 % (05/13/22 8:17 PM) Immature Gran Absolute 0.06 x10(3)/uL *NA* (05/13/22 8:17 PM) Basophil Absolute [0.00-0.10 x10(3)/uL] 0.04 x10(3)/uL (05/13/22 8:17 PM) Employed in healthcare? No *NA* (05/13/22 8:17 PM) Symptomatic as defined by CDC? No *NA* (05/13/22 8:17 PM) Hospitalized due to COVID-19? No *NA* (05/13/22 8:17 PM) In ICU? No *NA* (05/13/22 8:17 PM) Group care resident? No *NA* (05/13/22 8:17 PM) status? Not *NA* (05/13/22 8:17 PM) Radiology Reports Exam Date Time Procedure Performing Provider Status 05/14/22 3:43 PM XR Tibia +Fibula 2 Views Rt Jasmin Hernandez; Aut h (Verified) Notes:(XR Tibia +Fibula 2 Views Rt) Reason For Exam: TIBIAL RODDINGXR Tibia +Fibula 2 Views Rt EXAMINATION: XR Tibia +Fibula 2 Views Rt CLINICAL HISTORY: TIBIAL RODDING;S52.209A Unspecified fracture of shaft of unspecified ulna, TECHNIQUE: 10 intraoperative fluoroscopic views of the right lower extremity COMPARISON: May 13, 2022 FINDINGS: There has been a fracture of the lower shaft of the tibia. Intraoperative views document the placement of an intramedullary nail which has two proximal and two distal interlocking screws. Fracture alignment is improved. IMPRESSION: Intraoperative views document internal fixation of a fracture of the tibia. Thank you for letting us participate in the care of this patient. If you are a health care provider and have any questions regarding this report, please contact the number below. For patients who have questions please contact the health out of school hours care worker that requested your imaging first. Final Dictated: 05/14/2022 3:52 pm PERLA LEMONS Signed (Electronic Signature): 05/14/2022 3:52 pm Signed by: PERLA LEMONS Exam Date Time Procedure Performing Provider Status 05/13/22 6:58 PM XR Tibia +Fibula 2 Views Rt Bird Camarena (Verified) Notes:(XR Tibia +Fibula 2 Views Rt) Reason For Exam: injuryXR Tibia +Fibula 2 Views Rt EXAMINATION: XR Ankle 3 Views Min Rt, XR Tibia +Fibula 2 Views Rt CLINICAL HISTORY: injury TECHNIQUE: 2 views of Tib/Fib 3 views of the right ankle COMPARISON: None FINDINGS: Tib-fib: Acute foreshortened fracture of the mid tibia with approximately one half shaft width medial displacement of the distal fragment. Soft tissue swelling surrounding the fracture. No acute fracture of the fibula identified. Ankle: Ankle mortise is congruent. The medial clear space is not widened on these nonweightbearing views. This talar dome and tibial plafond are intact. IMPRESSION: Acute foreshortened fracture of the mid tibia with approximately one half shaft width medial displacement of the distal fragment. Preliminary report signed by a [facility] Computing Tutor or Fellow: Giancarlo Mckenna at 05/13/2022 7:05 PM I have personally reviewed the image(s) and the resident's interpretation and agree with the findings, Zaire Purdy MD at 05/13/2022 7:10 PM Thank you for letting us participate in the care of this patient. If you are a health care provider and have any questions regarding this report, please contact the number below. For patients who have questions please contact the health out of school hours care worker that requested your imaging first. Electronically signed by: Zaire Purdy MD, [facility] ([phone]), at 05/13/2022 7:10 PM Final Dictated: 05/13/2022 7:10 pm ZAIRE PURDY Signed (Electronic Signature): 05/13/2022 7:10 pm Signed by: ZAIRE PURDY Exam Date Time Procedure Performing Provider Status 05/13/22 6:58 PM XR Ankle 3 Views Min Rt Bird Camarena (Ve rified) Notes:(XR Ankle 3 Views Min Rt) Reason For Exam: injuryXR Ankle 3 Views Min Rt EXAMINATION: XR Ankle 3 Views Min Rt, XR Tibia +Fibula 2 Views Rt CLINICAL HISTORY: injury TECHNIQUE: 2 views of Tib/Fib 3 views of the right ankle COMPARISON: None FINDINGS: Tib-fib: Acute foreshortened fracture of the mid tibia with approximately one half shaft width medial displacement of the distal fragment. Soft tissue swelling surrounding the fracture. No acute fracture of the fibula identified. Ankle: Ankle mortise is congruent. The medial clear space is not widened on these nonweightbearing views. This talar dome and tibial plafond are intact. IMPRESSION: Acute foreshortened fracture of the mid tibia with approximately one half shaft width medial displacement of the distal fragment. Preliminary report signed by a [facility] Computing Tutor or Fellow: Giancarlo Mckenna at 05/13/2022 7:05 PM I have personally reviewed the image(s) and the resident's interpretation and agree with the findings, Zaire Purdy MD at 05/13/2022 7:10 PM Thank you for letting us participate in the care of this patient. If you are a health care provider and have any questions regarding this report, please contact the number below. For patients who have questions please contact the health out of school hours care worker that requested your imaging first. Electronically signed by: Zaire Purdy MD, [facility] ([phone]), at 05/13/2022 7:10 PM Final Dictated: 05/13/2022 7:10 pm ZAIRE PURDY Signed (Electronic Signature): 05/13/2022 7:10 pm Signed by: ZAIRE PURDY Vital Signs Most recent to oldest 1 2 3 [Reference Range]: Temperature Temporal Artery 36.5 DegC 36.9 DegC 36.8 DegC [36.3-37.8 DegC] (05/15/22 2:40 PM) (05/15/22 12:00 PM) (05/15/22 8 :22 AM) Temperature Temporal Artery 97.7 DegF 98.42 DegF 98.2 4 DegF (DegF) (05/15/22 2:40 PM) (05/15/22 12:00 PM) (05/15/22 8: 22 AM) Peripheral Pulse Rate [60-100 68 bpm 97 bpm 79 bpm bpm] (05/15/22 2:40 PM) (05/15/22 12:00 PM) (05/15/22 8: 22 AM) Respiratory Rate [14-20 18 br/min 17 br/min 17 br/mi n br/min] (05/15/22 2:40 PM) (05/15/22 12:00 PM) (05/15/22 8: 22 AM) Blood Pressure [90-140/60-90 105/53 mmHg 104/70 mmHg 117 /71 mmHg mmHg] (05/15/22 2:40 PM) (05/15/22 12:00 PM) (05/15/22 8: 22 AM) Mean Arterial Pressure, Cuff 81 mmHg 86 mmHg 75 mmHg [65-100 mmHg] (05/15/22 12:00 PM) (05/15/22 8:22 AM) (05/15/22 3: 34 AM) BP Site Right arm Right arm Right arm (05/15/22 2:40 PM) (05/15/22 12:00 PM) (05/15/22 8: 22 AM) FIO2 21 % (05/14/22 8:06 AM) SpO2 [92-100 %] 97 % 97 % 96 % (05/15/22 2:40 PM) (05/15/22 12:00 PM) (05/15/22 8: 22 AM) SpO2 Location Left hand (05/14/22 3:25 AM) BP Method Automatic Automatic Automatic (05/15/22 2:40 PM) (05/15/22 12:00 PM) (05/15/22 8: 22 AM) Height 164.000 cm (05/13/22 9:53 PM) Height/Length Estimated 164.000 cm (05/13/22 6:16 PM) Height/Length Dosing 164.000 cm 164.000 cm (05/13/22 9:53 PM) (05/13/22 6:25 PM) Weight 117.900 kg (05/13/22 9:53 PM) Weight Estimated 113.400 kg (05/13/22 6:16 PM) Weight Dosing 117.900 kg 113.400 kg (05/13/22 9:53 PM) (05/13/22 6:25 PM) Scale Type Bed Bed (05/14/22 4:25 PM) (05/13/22 9:53 PM) Body Mass Index 43.840 kg/m2 (05/13/22 9:53 PM) Social History Social History Type Response Tobacco Never tobacco user Tobacco U se:. Sex Implantable Device List Procedure Provider Procedure Date Device Type Site Tibial Nail BRENNANCASTROOLGA MUNROEBETH 05/14/22 Non Biological Tibia R Device Serial Lot or Manufacturing Expiration Distinct MRI Implan table Assigning Identifier Number Batch Date Date Identification Safety Status Authority Number Code Unknown Unknown [id number] Unknown 08/26/30 Unknown Unknown Active Unknown Unknown Unknown [id number] Unknown 11/27/31 Unknown Unknown Active Unknown Unknown Unknown [id number] Unknown 11/27/31 Unknown Unknown Active Unknown Unknown Unknown [id number] Unknown 06/27/29 Unknown Unknown Active Unknown Unknown Unknown [id number] Unknown 07/27/31 Unknown Unknown Active Unknown Hospital Discharge Instructions Patient Bmibvyzet70/19/2022 13:38:06Tibial Plateau Fracture Treated With ORIF, Care AfterTibial Plateau Fracture Treated With ORIF, Care After This sheet gives you information about how to care for yourself after your procedure. Your health care provider may also give you more specific instructions. If you have problems or questions, contact your health care provider. What can I expect after the procedure? After the procedure, it is common to have: ??? Pain. ??? Swelling. ??? Stiffness. ??? Tingling or numbness. ??? A small amount of fluid from your incision. Follow these instructions at home: If you have a brace: ??? Wear the brace as told by your health care provider. Remove it only as told by your health care provider. ??? Loosen the brace if your toes tingle, become numb, or turn cold and blue. ??? Keep the brace clean. Incision care ??? Follow instructions from your health care provider about how to take care of your incision. Makesure you: ??? Wash your hands with soap and water for at least 20 seconds before and after you change your bandage (dressing). If soap and water are not available, use hand clinic scheduler. ??? Change your dressing as told by your health care provider. ??? Leave stitches (sutures), skin glue, or adhesive strips in place. These skin closures may need to stay in place for 2 weeks or longer. If adhesive strip edges start to loosen and curl up, you may trim the loose edges. Do not remove adhesive strips completely unless your health care provider tells you to do that. ??? Check your incision area every day for signs of infection. Check for: ??? Redness. ??? More swelling or pain. ??? Blood or more fluid. ??? Warmth. ??? Pus or a bad smell. Bathing ??? Do not take baths, swim, or use a hot tub until your health care provider approves. Ask your health care provider if you can take showers. You may only be allowed to take sponge baths. ??? If your brace is not waterproof: ??? Do not let it get wet. ??? Cover it with a watertight covering when you take a bath or a shower. ??? Keep the dressing dry until your health care provider says it can be removed. Managing pain, stiffness, and swelling ??? If directed, put ice on the affected area. To do this: ??? If you have a removable brace, remove it as told by your health care provider. ??? Put ice in a plastic bag. ??? Place a towel between your skin and the bag or between your brace and the bag. ??? Leave the ice on for 20 minutes, 2???3 times a day. ??? Remove the ice if your skin turns bright red. This is very important. If you cannot feel pain, heat, or cold, you have a greater risk of damage to the area. ??? Move your toes often to reduce stiffness and swelling. ??? Raise (elevate) the injured leg above the level of your heart while you are sitting or lying down. To do this, try putting a few pillows under your knee and lower leg. Driving ??? Ask your health care provider if the medicine prescribed to you requires you to avoid driving orusing machinery. ??? Ask your health care provider when it is safe to drive if you have a brace on your leg. Activity ??? Return to your normal activities as told by your health care provider. Ask your health care provider what activities are safe for you. ??? Do exercises as told by your health care provider or physical therapist. ??? Do not use your injured limb to support (bear) your body weight until your health care provider says that you can. Follow weight-bearing restrictions as told. Use crutches or a walker as told by your health care provider. General instructions ??? Take gcrk-rpu-orbbnnn and prescription medicines only as told by your health care provider. ??? Do not use any products that contain nicotine or tobacco, such as cigarettes, e-cigarettes, and chewing tobacco. These can delay bone healing. If you need help quitting, ask your health care provider. ??? Ask your health care provider if the medicine prescribed to you can cause constipation. You may need to take these actions to prevent or treat constipation: ??? Drink enough fluid to keep your urine pale yellow. ??? Take bcxd-bnj-zegkjbm or prescription medicines. ??? Eat foods that are high in fiber, such as beans, whole grains, and fresh fruits and vegetables. ??? Limit foods that are high in fat and processed sugars, such as fried or sweet foods. ??? Keep all follow-up visits. This is important. Contact a health care provider if you: ??? Have a fever or chills. ??? Have pain that is not helped with medicine. ??? Have redness around your incision. ??? Have more swelling or pain around your incision. ??? Have blood or more fluid coming from your incision or leaking through your dressing. ??? Notice that your incision feels warm. ??? Have pus or a bad smell coming from your incision area. Get help right away if you: ??? Notice that the edges of your incision have come apart after the sutures or rhoda have been removed. ??? Have pain, warmth, or tenderness in the back of your lower leg (calf). ??? Have trouble breathing. ??? Have chest pain. These symptoms may represent a serious problem that is an emergency. Do not wait to see if the symptoms will go away. Get medical help right away. Call your local emergency services (911 in the [place] Do not drive yourself to the hospital. Summary ??? After the procedure, it is common to have some pain, swelling, tingling, or numbness. ??? If you have a brace, wear it as told by your health care provider. Remove it only as told by your health care provider. ??? Return to your normal activities as told by your health care provider. Ask your health care provider what activities are safe for you. ??? Contact your health care provider if you have blood or more fluid leaking through your dressing. This information is not intended to replace advice given to you by your health care provider. Make sure you discuss any questions you have with your health care provider. Document Revised: 03/29/2021 Document Reviewed: 03/29/2021 [employer] Patient Education ?? 2021 [employer]. 05/15/2022 13:38:06Tibial and Fibular FracturesTibial and Fibular Fractures Tibial and fibular fractures are breaks in both of the lower leg bones (tibia and fibula). The tibia, also called the mane bone, is the larger of these two bones. The fibula is the smaller of the two bones and is on the outer side of the leg. When tibiofibular fractures happen, the bones may: ??? Break, but stay close to their normal position (stable or nondisplaced fracture). ??? Break and move out of their normal position (unstable or displaced fracture). ??? Break into several small pieces (comminuted fracture). ??? Break through the skin (compound or open fracture). What are the causes? This condition is caused by injuries, such as: ??? Falls from significant heights or falls while cycling. ??? Sports contact injuries, like collisions in football or soccer. ??? Severe, forceful twisting of your leg, such as falls while skiing. ??? Car or motorcycle crashes. What increases the risk? You are more likely to develop this condition if: ??? You participate in sports, especially contact sports or sports that may involve impact or twisting, like football or skiing. ??? You smoke. What are the signs or symptoms? Symptoms of this condition include: ??? Pain, swelling, and bruising in the lower leg, ankle, or knee. ??? Difficulty walking or putting weight on your injured leg. ??? Change in the shape of your leg at the site of the injury. ??? Pain that gets worse with moving or standing and gets better with rest. How is this diagnosed? This condition is diagnosed with a physical exam and X-rays. In some cases, a CT scan may be done tohelp diagnose certain types of fractures. How is this treated? Treatment for this condition depends on the type and severity of your fractures. ??? If your bones did not move out of place and your leg is still stable, or if you are unable to have surgery, you may be treated with a cast, brace, or walking boot. This keeps the bones in place (immobile) while they heal. ??? If your bones are out of place or if your leg is unstable, you may need surgery. Surgery is common for tibial and fibular fractures. During surgery, the bones are moved back into their normal position, and a jumana, plate, or screws are used to hold the bones in place. After surgery, the leg is put in a splint or cast. Treatment may also include: ??? Medicine, ice, and elevation of the leg to help relieve pain and inflammation. ??? Using crutches or a walker while you heal. ??? Exercises to strengthen leg and ankle muscles and restore motion (physical therapy). Follow these instructions at home: If you have a splint, brace, or walking boot: ??? Wear it as told by your health care provider. Remove it only as told by your health care provider. Some types of splints can only be removed by your health care provider. ??? Loosen it if your toes tingle, become numb, or turn cold and blue. ??? Keep it clean and dry. If you have a cast: ??? Do not stick anything inside the cast to scratch your skin. Doing that increases your risk of infection. ??? Check the skin around the cast every day. Tell your health care provider about any concerns. ??? You may put lotion on dry skin around the edges of the cast. Do not put lotion on the skin underneath the cast. ??? Keep it clean and dry. Bathing ??? Do not take baths, swim, or use a hot tub until your health care provider approves. Ask your health care provider if you may take showers. You may only be allowed to take sponge baths. ??? If the cast, splint, brace, or boot is not waterproof: ??? Do not let it get wet. ??? Cover it with a watertight covering when you take a bath or a shower. Managing pain, stiffness, and swelling ??? If directed, put ice on the injured area. To do this: ??? If you have a removable splint, brace, or boot, remove it as told by your health care provider. ??? Put ice in a plastic bag. ??? Place a towel between your skin and the bag or between your splint or cast and the bag. ??? Leave the ice on for 20 minutes, 2???3 times a day. ??? Remove the ice if your skin turns bright red. This is very important. If you cannot feel pain, heat, or cold, you have a greater risk of damage to the area. ??? Move your toes often to reduce stiffness and swelling. ??? Raise (elevate) the injured area above the level of your heart while you are sitting or lying down. Activity ??? Return to your normal activities as told by your health care provider. Ask your health care provider what activities are safe for you. ??? Do exercises as told by your health care provider. ??? Do not use the injured limb to support your body weight until your health care provider says that you can. Use crutches or a walker as told by your health care provider. Driving ??? Ask your health care provider when it is safe to drive if you have a cast, splint, brace, or walking boot on your leg. ??? Ask your health care provider if the medicine prescribed to you requires you to avoid driving orusing machinery. General instructions ??? Do not put pressure on any part of the cast or splint until it is fully hardened. This may take several hours. ??? Do not use any products that contain nicotine or tobacco, such as cigarettes e-cigarettes, and chewing tobacco. These can delay bone healing. If you need help quitting, ask your health care provider. ??? Take szij-rby-nqyzhdw and prescription medicines only as told by your health care provider. ??? Keep all follow-up visits. This is important. Contact a health care provider if: ??? You have pain that gets worse or does not get better with rest or medicine. ??? You have more swelling or redness in your foot. Get help right away if: ??? Your skin or nails below your injury: ??? Turn blue or collier. ??? Feel cold. ??? Become numb. ??? Become less sensitive to touch. ??? You develop new or severe pain in your leg or foot. ??? You have tingling, burning, and tightness in your lower leg. Summary ??? Tibial and fibular fractures are breaks in both of the lower leg bones (tibia and fibula). ??? If your bones are out of place or if your leg is unstable, you may need surgery. Surgery is common for tibial and fibular fractures. ??? If directed, put ice on the injured area for 20 minutes, 2???3 times a day. ??? Pain medicine and elevating your injured leg will help control pain and reduce swelling. Follow directions as told by your health care provider. This information is not intended to replace advice given to you by your health care provider. Make sure you discuss any questions you have with your health care provider. Document Revised: 03/01/2021 Document Reviewed: 03/01/2021 [employer] Patient Education ?? 2021 [employer] Note PERLA LEMONS: VERIFY, VERIFY, PERFORM Event Display: Report Authored Date: EXAMINATION: XR Tibia +Fibula 2 Views Rt CLINICAL HISTORY: TIBIAL RODDING;S52.209A Unspecified fracture of shaft of unspecified ulna, TECHNIQUE: 10 intraoperative fluoroscopic views of the right lower extremity COMPARISON: May 13, 2022 FINDINGS: There has been a fracture of the lower shaft of the tibia. Intraoperative views document the placement of an intramedullary nail which has two proximal and two distal interlocking screws. Fracture alignment is improved. IMPRESSION: Intraoperative views document internal fixation of a fracture of the tibia. Thank you for letting us participate in the care of this patient. If you are a health care provider and have any questions regarding this report, please contact the number below. For patients who have questions please contact the health out of school hours care worker that requested your imaging first. Electronically signed by: Perla Lemons MD, [facility] ([phone]), at 05/14/2022 3:52 PM Final Dictated: 05/14/2022 3:52 pm PERLA LEMONS Signed (Electronic Signature): 05/14/2022 3:52 pm Signed by: JULIANA LEMONS ANNE M: VERIFY, VERIFY, PERFORM Event Display: Report Authored Date: EXAMINATION: XR Ankle 3 Views Min Rt, XR Tibia +Fibula 2 Views Rt CLINICAL HISTORY: injury TECHNIQUE: 2 views of Tib/Fib 3 views of the right ankle COMPARISON: None FINDINGS: Tib-fib: Acute foreshortened fracture of the mid tibia with approximately one half shaft width medial displacement of the distal fragment. Soft tissue swelling surrounding the fracture. No acute fracture of the fibula identified. Ankle: Ankle mortise is congruent. The medial clear space is not widened on these nonweightbearing views. This talar dome and tibial plafond are intact. IMPRESSION: Acute foreshortened fracture of the mid tibia with approximately one half shaft width medial displacement of the distal fragment. Preliminary report signed by a [facility] Computing Tutor or Fellow: Giancarlo Mckenna at 05/13/2022 7:05 PM I have personally reviewed the image(s) and the resident's interpretation and agree with the findings, Zaire Purdy MD at 05/13/2022 7:10 PM Thank you for letting us participate in the care of this patient. If you are a health care provider and have any questions regarding this report, please contact the number below. For patients who have questions please contact the health out of school hours care worker that requested your imaging first. Electronically signed by: Zaire Purdy MD, [facility] ([phone]), at 05/13/2022 7:10 PM Final Dictated: 05/13/2022 7:10 pm ZAIRE PURDY Signed (Electronic Signature): 05/13/2022 7:10 pm Signed by: ZAIRE PURDY ANNE M: VERIFY, VERIFY, PERFORM Event Display: Report Authored Date: EXAMINATION: XR Ankle 3 Views Min Rt, XR Tibia +Fibula 2 Views Rt CLINICAL HISTORY: injury TECHNIQUE: 2 views of Tib/Fib 3 views of the right ankle COMPARISON: None FINDINGS: Tib-fib: Acute foreshortened fracture of the mid tibia with approximately one half shaft width medial displacement of the distal fragment. Soft tissue swelling surrounding the fracture. No acute fracture of the fibula identified. Ankle: Ankle mortise is congruent. The medial clear space is not widened on these nonweightbearing views. This talar dome and tibial plafond are intact. IMPRESSION: Acute foreshortened fracture of the mid tibia with approximately one half shaft width medial displacement of the distal fragment. Preliminary report signed by a [facility] Computing Tutor or Fellow: Giancarlo Mckenna at 05/13/2022 7:05 PM I have personally reviewed the image(s) and the resident's interpretation and agree with the findings, Zaire Purdy MD at 05/13/2022 7:10 PM Thank you for letting us participate in the care of this patient. If you are a health care provider and have any questions regarding this report, please contact the number below. For patients who have questions please contact the health out of school hours care worker that requested your imaging first. Electronically signed by: Zaire Purdy MD, [facility] ([phone]), at 05/13/2022 7:10 PM Final Dictated: 05/13/2022 7:10 pm ZAIRE PURDY Signed (Electronic Signature): 05/13/2022 7:10 pm Signed by: ZAIRE PURDY Care Team PersonnelName: GILMAR PETERS Address: [address] [place] [phone]
--- OUTSIDE RECORDS SUMMARY | 2022-08-08 09:33 | XMS_ITS | Encounter Summary ---
:1990 Author Organization [facility] Address [address] [place] [address] Care Team Providers Name Role Phone Caty Trinidad MD Primary Care Provider Encounter Details Date Type Department Care Team Description 09/11/2011 Results Only [facility] Chrissy Nicole MD Laboratory Services - [address] [facility] [place] [address] [address] [place] [phone] (Wo rk) Social History Tobacco Use Types Packs/Day Years Used Date Never Assessed Sex Assigned at Date Recorded Not on file documented as of this encounter Plan of Treatment Not on filedocumented as of this encounter Procedures Procedure Name Priority Date/Time Associated Diagnosis Comme nts PAP TEST- RESULT Routine 09/11/2011 0:00 EST Resu lts for this ONLY procedure are i n the results section. documented in this encounter Results PAP TEST- RESULT ONLY (09/11/2011 0:00 EST) Pathology Report: CYTOPATHOLOGY REPORT [facility] Reports generated via electronic interface contain kavin ginal data; however they are lacking the format of the original re port. Caution should be taken when reading/interpreting unfo rmatted reports. Name: ? NERIS PAUL ? Accession #: ? [id number] : ? 1990 (Age: 21) ??F ?Collect Date: ? 08/28 Location: ? [facility] ? Receive Date : ? 09/12/2011 Provider: ?AKSHAT NICOLE MD Copy to: ?CATY TRINIDAD MD ? Specimen/Source: ? Pap Test, Cervix/Endocervix, ThinPrep Imaging System with manual evaluation Last Menstrual Period: ? 08/28/2011 Previous Gynecologic Pathology: ? ASC-US: 12/20/2010 Treatment History: ? Colposcopy: 12/20/2010 ? SPECIMEN ADEQUACY ? Satisfactory for Evaluation - transformation zone component present GENERAL CATEGORIZATION ? Negative for Intraepithelial Lesion or Malignan cy INTERPRETATION ? Reactive cellular francisco nges associated with inflammation present (includes repair). Shift in kandice present suggestive of bacterial vaginos is. ? Document reviewed and electronically signed by: ? FORTINO VALLEJO MD ? Report Date: ??09/19/2011 13:22 End of Report Specimen Performing Organization Address City/State/ZIP Code Phon e Number [facility] [address] [place] [address] SERVICES [facility] [address] [place] [address] documented in this encounter Visit Diagnoses Not on filedocumented in this encounter Care Teams Water Main Inspector Relationship Specialty Start Date End Date Caty Trinidad MD PCP - General 11/30/[address] [place] [phone] documented as of this encounter
--- OUTSIDE RECORDS SUMMARY | 2022-08-08 09:33 | XMS_ITS | Encounter Summary ---
:1990 Author Organization [facility] Address [address] [place] [address] Care Team Providers Name Role Phone Caty Trinidad MD Primary Care Provider Encounter Details Date Type Department Care Team Description 08/01/2006 Hospital Encounter [facility] Kt Reed MD [place] [address] [place] [address] Social History Tobacco Use Types Packs/Day Years Used Date Never Assessed Sex Assigned at Date Recorded Not on file documented as of this encounter Plan of Treatment Pending Results Name Type Priority Associated Diagnoses Date/Ti me CYTOPATHOLOGY Pathology Routine 11/24/2009 0:0 0 EST CYTOPATHOLOGY Pathology Routine 11/24/2009 0:0 0 EST Scheduled Orders Name Type Priority Associated Diagnoses Order S chedule CYTOPATHOLOGY Pathology Routine For medication s that can be administered at any time during the hospitaliza tion for visit such as immuniz ations. for 1 Occurrences sta rting 11/25/2009 CYTOPATHOLOGY Pathology Routine For medication s that can be administered at any time during the hospitaliza tion for visit such as immuniz ations. for 1 Occurrences sta rting 11/25/2009 documented as of this encounter Procedures Procedure Name Priority Date/Time Associated Comments Diagnosis HPV DETECTION, HIGH Routine 11/24/2009 14:48 Resu lts for this RISK TYPES EST procedure are i n the results section. CYTOPATHOLOGY Routine 11/24/2009 0:00 Results for this EST procedure are i n the results section. documented in this encounter Results HUMAN PAPILLOMA VIRUS DNA TEST (11/24/2009 14:48 EST) Specimen Description Cervix, ThinPrep [facility] Result Positive for one or more of HPV types 16,18,31,33,35,39,45,51,52,56,58,59, or 68. These [facility] high/intermediate risk HPV t ypes are associated with dysplasia and some cervical cancers. LAB Report Status Final [facility] 12/06/2009 LAB Specimen Performing Organization Address City/State/ZIP Code Phon e Number [facility] [address] [place] [address] SERVICES [facility] [address] [place] [address] CYTOPATHOLOGY (11/24/2009 0:00 EST) Pathologist [facility] Pathology Report: CYTOPATHOLOGY REPORT ? [facility] ? [facility] Reports generated via electr SocialEars interface contain original data; ? however they are lacking the format of the original report. ? Caution should be taken when reading/interpreting unformatted reports. ? Name: ? NERIS PAUL ? Accession #: ? [id number] ? : ? 1990 (Age: 19) ??F ?Collect Date: ? 11/24/2009 ? Location: ? [facility] ? Receive Date: ? 11/25/2009 ? Provider: ?SVETA HAYG OOD TALLOW REFINER ? Copy to: ? Specimen/Source: ? Pap Test, Cervix/Endocervix, ThinPrep Imaging System ? with manual evaluation ? Last Menstrual Period: ? 12/29/09 ? Hormonal/Contraceptive Statu s: ? Yes: Nuva Ring ? Other: ? HPVA - HPV testing requested if ASC-US on the current ThinPrep Pap test. ? SPECIMEN ADEQUACY ? Satisfactory for Eval uation ? - transformation zone compon ent present ? GENERAL CATEGORIZATION ? Epithelial Cell Abnor mality ? INTERPRETATION ? Squamous Cell Abnorma lity - Atypical squamous cells, undetermined ? significance (ASC-US). ? EDUCATIONAL NOTES/RECOMMENDA TIONS ? [facility] recommends follo wing the 2006 Consensus Guidelines for the Management of Women with Abnormal Cervi kalyn Cancer Screening Tests (JLGTD, ? 2007;11(4):201-222). ??Conse nsus guidelines are available online at ? www.ASCCP.org. ? Document reviewed and electr onically signed by: ? Piero Ansari MD ? Report Date: ??2009 13:04 ? End of Report ? Specimen Performing Organization Address City/State/ZIP Code Phon e Number [facility] [address] [place] [address] SERVICES [facility] [address] [place] [address] documented in this encounter Visit Diagnoses Not on filedocumented in this encounter Care Teams Auditor Supervisor Relationship Specialty Start Date End Date Caty Trinidad MD PCP - General 11/30/[address] [place] [phone] documented as of this encounter
--- OUTSIDE RECORDS SUMMARY | 2022-08-08 09:33 | XMS_ITS | Encounter Summary ---
:1990 Author Organization [facility] Address [address] [place] [address] Care Team Providers Name Role Phone Caty Trinidad MD Primary Care Provider Encounter Details Date Type Department Care Team Description 12/28/2020 Lab Requisition [facility] Roxanne Mendoza E ncounter for other Pathology & VISUAL ARTIST general examination Laboratory Medicine [address] [place], [place] [address] [facility] [phone] [place] [address] Social History Tobacco Use Types Packs/Day Years Used Date Never Assessed Sex Assigned at Date Recorded Not on file documented as of this encounter Plan of Treatment Not on filedocumented as of this encounter Procedures Procedure Name Priority Date/Time Associated Diagnosis Comme nts PAP TEST Today 12/27/2020 10:45 EST Encounter for other Results for this general examination procedur e are in the results section. documented in this encounter Results PAP TEST (12/27/2020 10:45 EST) Specimens A. Cervix and/or [facility] Endocervix , CENTER ThinPrep Imaging LABORATORY System with Manual SERVICES Evaluation Specimen Adequacy Unsatisfactory for [facility] evaluation - CENTER insufficient numbers LABORATORY of squamous SERVICES epithelial cells (less than 10% of expected cellularity). Sample preparation compromised by excessive inflammation. General Unsatisfactory [facility] Categorization CENTER LABORATORY SERVICES Educational Comments An additional slide was prepared and evalua nikko. [facility] Unsatisfactory - Specimen pr ocessed and examined, but unsatisfactory for evaluation of epithelial abnormality. Recommend Pap test in 2-4 months as stated in ASCCP's 2012 Updated Guidelines. HPV testing CENTER will not be performed due to the potential for f alse negative results. LABORATORY SERVICES Attestation . [facility] CENTER signed by YUNIER Welch CT([facility] P) SERVICES on 01/04/2021 at 1353 Clinical History See below [facility] SERVICES Performing Lab [facility] SERVICES Scanned Images [facility] SERVICES Specimen Pap Test - Cervix and/or Endocervix Performing Organization Address City/State/ZIP Code Phon e Number [facility] [address] [place] [address] SERVICES documented in this encounter Visit Diagnoses Diagnosis Encounter for other general examination documented in this encounter Care Teams Od Grinder Operator Relationship Specialty Start Date End Date Caty Trinidad MD PCP - General 11/30/[address] [place] [phone] documented as of this encounter
--- OUTSIDE RECORDS SUMMARY | 2022-08-08 09:33 | XMS_ITS | Encounter Summary ---
:1990 Author Organization [facility] Address [address] [place] [address] Care Team Providers Name Role Phone Caty Trinidad MD Primary Care Provider Encounter Details Date Type Department Care Team Description 03/27/2013 Results Only [facility] Jong Mendoza, WORK FROM HOME Laboratory Services - [address] [facility] [address] [place] [address] [address] [place] [address] [phone] Social History Tobacco Use Types Packs/Day Years Used Date Never Assessed Sex Assigned at Date Recorded Not on file documented as of this encounter Plan of Treatment Not on filedocumented as of this encounter Procedures Procedure Name Priority Date/Time Associated Diagnosis Comme nts PAP TEST- RESULT Routine 03/27/2013 0:00 EDT Resu lts for this ONLY procedure are i n the results section. documented in this encounter Results PAP TEST- RESULT ONLY (03/27/2013 0:00 EDT) Pathology Report: CYTOPATHOLOGY REPORT [facility] Reports generated via electronic interface contain kavin ginal data; however they are lacking the format of the original re port. Caution should be taken when reading/interpreting unfo rmatted reports. Name: ? NERIS PAUL ? Accession #: ? [id number] : ? 1990 (Age: 22) ??F ?Collect Date: ? 02/27 Location: ? [facility] ? Receive Date : ? 03/30/2013 Provider: ?SVETA DIXON WORK FROM HOME Copy to: ?CATY TRINIDAD MD ? Specimen/Source: ? Pap Test, Cervix/Endocervix, ThinPrep Imaging System with manual evaluation Last Menstrual Period: ? Hormonal/Contraceptive Status: ? Intrauterine device: mirena Previous Gynecologic Pathology: ? ASC-US: 2010 HPV: + 2010 Treatment History: ? Colposcopy: benign 2010 biopsy ? SPECIMEN ADEQUACY ? Satisfactory for Evaluation - transformation zone component present GENERAL CATEGORIZATION ? Negative for Intraepithelial Lesion or Malignan cy INTERPRETATION ? Bacteria present morphologically consistent wit h Actinomyces species. Shift in kandice present suggestive of bacterial vaginos is. ? Document reviewed and electronically signed by: ? PEYMAN LYNNE MD ? Report Date: ??04/07/2013 15:48 End of Report Specimen Performing Organization Address City/State/ZIP Code Phon e Number [facility] [address] [place] [address] SERVICES [facility] [address] [place] [address] documented in this encounter Visit Diagnoses Not on filedocumented in this encounter Care Teams Production Finisher Relationship Specialty Start Date End Date Caty Trinidad MD PCP - General 11/30/[address] [place] [address] documented as of this encounter
--- OUTSIDE RECORDS SUMMARY | 2022-08-08 09:33 | XMS_ITS | Encounter Summary ---
:1990 Author Organization [facility] [place] [address] Care Team Providers Name Role Phone Unavailable Primary Care Provider Unavailable Encounter Details Date Type Department Care Team Description 09/04/2010 Follow-Up Obstetrics and Gynecology at Tom Esparza MD [facility] Boris evangelista OBSTETRICS & [place] [address] [place] [address] [phone] Social History Tobacco Use Types Packs/Day Years Used Date Never Assessed Sex Assigned at Date Recorded Not on file documented as of this encounter Plan of Treatment Not on filedocumented as of this encounter Visit Diagnoses Not on filedocumented in this encounter
--- OUTSIDE RECORDS SUMMARY | 2022-08-08 09:33 | XMS_ITS | Encounter Summary ---
:1990 Author Organization [facility] [place] [address] Care Team Providers Name Role Phone Caty Trinidad MD Primary Care Provider Encounter Details Date Type Department Care Team Description 05/14/2022 Interpretation Only [facility] MD Melania fracture of shaft [address] of unspecified [place], [facility], [place] ulna, ini tial [phone] encounter for [phone] closed fracture (Work) Social History Tobacco Use Types Packs/Day Years [...] s initial encounter section. for closed fracture documented in this encounter Results XR Tibia Fibula Right (Generic) (05/14/2022 3:43 PM EDT) [facility] Method Time Signature PT CLASS I DH RAD ADMITDTTM [id number] RAD PT CYNDI HOSKINS INFO [id number]^[facility] RAD LUDWIG^MELANIA EXAM DESC XRTIBFALR^XR RAD Tibia [...] who have questions please contact the health physician locums urgent care that requested your imaging first. ? Narrative 05/14/2022 3:52 PM EDT EXAMINATION: XR [...] ho have questions please contact the health physician locums urgent care that requested your imaging first. Melania Roche MD IMG DX ORDERABLES documented in this encounter Visit Diagnoses Diagnosis Unspecified fracture of shaft of unspeci fied ulna, initial encounter for closed fracture documented in this encounter Care Teams Rescue Instructor Relationship Specialty Start Date End Date Caty Trinidad MD PCP - General 09/19/10 [address] [place] [address] documented as of this encounter
--- OUTSIDE RECORDS SUMMARY | 2022-08-08 09:33 | XMS_ITS | Encounter Summary ---
:1990 Author Organization [facility] [place] [address] Care Team Providers Name Role Phone Caty Trinidad MD Primary Care Provider Reason for Visit Reason Comments Ultrasound Ultrasound Finding Consultation (Routine) - Closed Specialty Diagnoses / Procedures Referred By Contact Refer red To Contact Genetics / Obstetrics Diagnoses prev child with septal defects Cortney Mckeon [facility] Mycology Teacher 5l and Gynecology Procedures full slot N, CNM [address], [place] [address] Referral ID Status Reason Start Date Expiration Date Visits Requ ested Visits Authorized [id number] Closed 09/09/2015 09/08/2016 2 2 Encounter Details Date Type Department Care Team Description 11/22/2015 Procedure visit Obstetrics and Pschirrer, E ; Gynecology at [facility] MD Jasmin Previous child born with ventricular sep [place] defect, currently , not applicable or unspecified fetus [facility] [address] [place] OBSTETRICS & [address] GYNECOLOGY [phone] [place] [address] Social History Tobacco Use Types Packs/Day [...] on file documented as of this encounter Last Filed Vital Signs Vital Sign Reading [...] Mass Index 35.6 11/22/2015 9:34 AM EST documented in this encounter Progress Notes Elizabeth Enriquez MD - 11/22/2015 10:34 AM EST Diagnosis/Maternal Medicine Consult Note Neris Suh is a 25 y.o. year old female who is at 19w2d gestation. She is seen in consultation at the request of Cortney Mckeon CNM for evaluation of anatomy due to prior child with congenital heart defect. She was seen today for maternal- medicine consultation, ultrasound evaluation and genetic counseling with Florina Westfall MSc. Review of Systems Constitutional:feels well Movement: normal Contractions: none Leaking: None Bleeding: None There are no active problems to display for this patient. No past medical history on file. Past Surgical History Procedure Laterality Date ??? Cholecystectomy 2006 Family History Problem Relation Age of Onset ??? Heart Defect Son surgery at age 5y Social History Occupational History ??? Not on file. Social History Main Topics ??? Smoking status: Never Smoker ??? Smokeless tobacco: Not on file ??? Alcohol Use: 0.0 oz/week 0 Standard drinks or equivalent per week Comment: 1 drink month none in ??? Drug Use: No ??? Sexual Activity: Partners: Male OB History Para Term AB TAB SAB Ectopic Multiple Living 3 2 2 0 0 0 0 0 0 2 # Outc Date GA Lbr Timi/2nd Wgt Sex Del Anes PTL Lv 1 Term 10/2006 41w2d 3.572 kg (7 lb 14 oz) F Vag-Spont N Y 2 Term 10/2010 40w1d 3.6 kg (7 lb 15 oz) M Vag-Spont N Y 3 Current Current Outpatient Prescriptions Medication Sig Dispense Refill ??? diphenhydrAMINE (BENADRYL) 50 mg Capsule Take 50 mg by mouth every 6 hours as needed for Itching. ??? PLUS, CALCIUM CARB, 27 mg iron- 1 mg Tablet 0 ??? VITAMIN B-6 25 mg Tablet 0 No current facility-administered medications for this visit. Allergies Allergen Reactions ??? Erythromycin Base Ultrasound Date: 11/22/2015 Amniotic fluid volume normal Presentation breech Placenta anterior Growth appropriate for gestational age anatomy appears within normal limits Physical Exam BP 122/72 mmHg Ht 162.6 cm (5' 4) Wt 94.076 kg (207 lb 6.4 oz) BMI 35.58 kg/m2 ? Yes General: alert, well appearing, in no apparent distress, oriented to person, place and time, overweight HEENT: normocephalic, atraumatic Abdomen: Soft, nontender Extremities: no edema Neurologic:alert, oriented, normal speech, no focal findings or movement disorder noted Psychiatric: Affect is Appropriate. Assessment and Recommendations: 25 y.o. year old female at 19w2d weeks gestation, referred for counseling regarding history of a child with congenital anomaly. The anatomy appears within normal limits today. I recommend fetalechocardiogram in aproximately 3 - 4 weeks. I appreciate the opportunity to be involved in this patients care, and am available if further questions should arise. Elizabeth ENRIQUEZ MD 11/22/2015 Cc: Cortney Mckeon, [address] [place] [address] , with copy of ultrasound report Dhara Lerma RN - 10/14/2015 2:02 PM EST Ultrasound ordered. documented in this encounter Miscellaneous Notes Addendum Note - Elizabeth Enriquez MD - 11/22/2015 11:55 AM EST Addended by: Elizabeth ENRIQUEZ on: 11/22/2015 11:55 AM Modules accepted: Orders, Level of Service Addendum Note - Yenni Parikh LNA - 11/22/2015 9:42 AM EST Addended by: YENNI PARIKH on: 11/22/2015 09:42 AM Modules accepted: Orders, Medications documented in this encounter Plan of Treatment Not on filedocumented as of this encounter Results ECHOCARDIOGRAM PRF (12/13/2015 11:23 AM EST) Anatomical Region Laterality Modality Other Specimen (Source) Anatomical Location Collection Method / Collectio n Time Received Time / Laterality Volume 12/13/2015 Narrative 12/13/2015 1:58 PM EST Procedure: ?Pediatric Echocardiogram Patient: ?BEVERLY NERIS M ? (Age): 1990(25y) ? Med Rec#: ? [id number] ?Sex: ?F ? Site Loc: ? Ht / Wt: ??(cm)/ (kg) ? Pt. Loc: ?Echo Lab ? Study Date: ?? 12/13/2015 ?Pt. Type: Study Quality: ? Referring: Kirti Enriquez Referring: JOSÉ ANTONIO Reading: Jitendra Paz (400) Qa Test Lead: Ashley Quintanilla Qa Test Lead 2: Jennifer Donovan Jimenez Diagnosis: *ICD-10-PCS Family history of other spe cified conditions (Z84.89) BP: ? / SUMMARY: 1. A echocardiogram was performed at 22 weeks 2 days gestation (ISABEL: 04/15/2016) due to history of prior child with atrial septal defects. ??Jtid-fg-yrco quality images w ere obtained. ??The fetus [...] :57:49 Images reviewed and interpretation verif ied [facility] Cardiac Ultrasound Laboratory Procedure Note Jitendra Paz MD - 12/13/2015Formatti ng of this note might be different from the original. Procedure: Pediatric Echocardiogram Patient: BEVERLY Mercer (Age): [birth year](25y) Med Rec#: [id number] Sex: F Site Loc: Ht / Wt: (cm)/ (kg) Pt. Loc: Echo Lab Study Date: 12/13/2015 Pt. Type: Study Quality: Referring: Kirti Enriquez Referring: JOSÉ ANTONIO Reading: Jitendra Paz ([id number]) Qa Test Lead: Ashley Quintanilla Qa Test Lead 2: Donovan Rodriguez Diagnosis: *ICD-10-PCS Family history of other spe cified conditions (Z84.89) BP: / SUMMARY: 1. A echocardiogram was performed at 22 weeks 2 days gestation (ISABEL: 04/15/2016) due to history of prior child with atrial septal defects. Tnss-jn-uxhr quality images wer e obtained. The fetus [...] MD 12/13/2015 13:57:49 Images reviewed and interpretation jose matta [facility] Cardiac Ultrasound Laboratory E Jasmin Enriquez MD ECHO ORDERABLES documented in this encounter Visit Diagnoses Diagnosis state, incidental Previous child born with ventricular sep charlotte defect, currently , not applicable or unspecified fetus state, incidental Previous child born with ventricular sep [place] defect, currently , not applicable or unspecified fetus documented in this encounter Care Teams In Flight Crew Member Relationship Specialty Start Date End Date Caty Trinidad MD PCP - General 09/19/[address] [place] [address] documented as of this encounter
--- OUTSIDE RECORDS SUMMARY | 2022-08-08 09:33 | XMS_ITS | Encounter Summary ---
:1990 Author Organization [facility] [place] [address] Care Team Providers Name Role Phone Caty Trinidad MD Primary Care Provider Encounter Details Date Type Department Care Team Description 05/13/2022 Interpretation Only [facility] [address] [place] [address] [facility] [phone] (Wo rk) Social History Tobacco Use Types Packs/Day Years Used Date Never Assessed Sex Assigned at Date Recorded Not on file documented as of this encounter Plan of Treatment Not on filedocumented as of this encounter Procedures Procedure Name Priority Date/Time Associated Diagnosis Comme nts XR ANKLE MIN 3 STAT 05/13/2022 6:58 PM Results for this VIEWS RIGHT EDT procedure are i n the results section. documented in this encounter Results XR Ankle Min 3 views Right (Generic) (05/13/2022 6:58 PM EDT) [facility] Method Time Signature PT CLASS E DH RAD ADMITDTTM [id number] DH RAD PT CRESCENCIO HANNA MD INFO [id number]^IRON^ DH RAD ALEM EXAM DESC XRANKMVR^XR DH RAD Ankle 3 Views Min Rt^RIS Anatomical Region Laterality Modality Ankle Right Radiographic Imaging Specimen (Source) Anatomical Collection Method Collection Time Re ceived Time Location / / Volume Laterality 05/13/2022 6:58 PM EDT Impressions 05/13/2022 7:10 PM EDT Acute foreshortened fracture of the mid tibia with approximately one half shaft width medial displacement of the distal fragment. Preliminary report signed by a [facility] Line Assembler or Fellow: Giancarlo Mckenna at 7:05 PM [...] who have questions please contact the health palliative care physician that requested your imaging first. ? Narrative [...] tissue swelling surrounding the fracture. No ac [place] fracture of the fibula identified. Ankle: Ankle [...] tissue swelling surrounding the fracture. No ac [place] fracture of the fibula identified. Ankle: Ankle mortise is congruent. The m edial clear space is not widened on these nonweightbearing views. This talar dome and tibial plafond are intact. IMPRESSION Acute foreshortened fracture of the mid tibia with approximately one half shaft width medial displacement of the distal fragment. Preliminary report signed by a [facility] Line Assembler or Fellow: Giancarlo Mckenna at 7:05 PM [...] ho have questions please contact the health palliative care physician that requested your imaging first. Alem Donahue MD IMG DX ORDERABLES documented in this encounter Visit Diagnoses Not on filedocumented in this encounter Care Teams Stoker Mechanic Relationship Specialty Start Date End Date Caty Trinidad MD PCP - General 09/19/[address] [place] [address] documented as of this encounter
--- OUTSIDE RECORDS SUMMARY | 2022-08-08 09:33 | XMS_ITS | Encounter Summary ---
:1990 Author Organization [facility] [place] [address] Care Team Providers Name Role Phone Unavailable Primary Care Provider Unavailable Encounter Details Date Type Department Care Team Description 09/04/2010 Procedure visit ZLEB DEP [facility] [place] [address] Social History Tobacco Use Types Packs/Day Years Used Date Never Assessed Sex Assigned at Date Recorded Not on file documented as of this encounter Plan of Treatment Not on filedocumented as of this encounter Visit Diagnoses Not on filedocumented in this encounter
--- OUTSIDE RECORDS SUMMARY | 2022-08-08 09:33 | XMS_ITS | Encounter Summary ---
:1990 Author Organization [facility] Address [address] [place] [address] Care Team Providers Name Role Phone Caty Trinidad MD Primary Care Provider Encounter Details Date Type Department Care Team Description 10/13/2014 Results Only [facility] Stacy Webster, ALEX Laboratory Services - [address] [address] Social History Tobacco Use Types Packs/Day Years Used Date Never Assessed Sex Assigned at Date Recorded Not on file documented as of this encounter Plan of Treatment Not on filedocumented as of this encounter Procedures Procedure Name Priority Date/Time Associated Diagnosis Comme nts PAP TEST- RESULT Routine 10/13/2014 0:00 EST Resu lts for this ONLY procedure are i n the results section. documented in this encounter Results PAP TEST- RESULT ONLY (10/13/2014 0:00 EST) Pathology Report: CYTOPATHOLOGY REPORT [facility] Reports generated via electronic interface contain kavin ginal data; SERVICES however they are lacking the format of the original re port. Caution should be taken when reading/interpreting unfo rmatted reports. Name: ? NERIS PAUL ? Accession #: ? [id number] ? : ? 1990 (Age: 24) ??F ?Collect Da te: ? 10/13/2014 ? Location: ? [facility] ? Receive Date: ? 014 ? Provider: STACY WEBSTER METAPHYSICIAN Copy to: CATY TRINIDAD MD ? Final Report SPECIMEN ADEQUACY ? Satisfactory for Evaluation - transformation zone component present GENERAL CATEGORIZATION ? Negative for Intraepithelial Lesion or Malignan cy INTERPRETATION ? Reactive cellular francisco nges associated with inflammation present (includes repair). Bacteria present morphologically consistent with Actin omyces species. Previous Gynecologic Pathology: ASC-US: 2009 HPV: + Treatment History: Colposcopy: NEG 2010 Specimen/Source: ??Pap Test, Cervix/Endocervix, ThinPr ep Imaging System with manual evaluation Document reviewed and electronically signed by: ? SYLVIE GUEVARA MD ? Report ??Date: 10/25/2014 14:08 HPV with Pap Test ? Date Ordered: ? 10/25/2014 ? Status: ?? Signed Out ?Date Complete: ? 10/27/2014 ? By: ??S ystem Interface ? Date Reported: ? 10/27/2014 ? Interpretation RESULT: Negative for HPV. No E6 or E7 mRNA is detected from HPV types 16,18,31,3 3,35, 39,45,51,52,56,58,59,66, and 68 by supervisor ore dressing media nikko amplification. Comments Document reviewed and electronically signed by: ? System Interface ? Report date: 10/27/2014 By the signature above, the attending physician certif ies that he/she has personally conducted a gross and/or microscopic examin ation of the described specimens and rendered or confirmed the above diagnosi s. End of Report Specimen Performing Organization Address City/State/ZIP Code Phon e Number [facility] [address] [place] [address] SERVICES documented in this encounter Visit Diagnoses Not on filedocumented in this encounter Care Teams Glass Vial Bending Conveyor Feeder Relationship Specialty Start Date End Date Caty Trinidad MD PCP - General 11/30/[address] [place] [address] documented as of this encounter
--- OUTSIDE RECORDS SUMMARY | 2022-08-08 09:33 | XMS_ITS | Encounter Summary ---
:1990 Author Organization [facility] Address [address] [place] [address] Care Team Providers Name Role Phone Caty Trinidad MD Primary Care Provider Encounter Details Date Type Department Care Team Description 02/08/2011 Results Only [facility] Chrissy Nicole MD Laboratory Services - [address] [facility] [phone] (Wo rk) Social History Tobacco Use Types Packs/Day Years Used Date Never Assessed Sex Assigned at Date Recorded Not on file documented as of this encounter Plan of Treatment Not on filedocumented as of this encounter Procedures Procedure Name Priority Date/Time Associated Diagnosis Comme [facility] SURGICAL PATHOLOGY Routine 02/09/2011 0:00 EDT Re sults for this procedure are i n the results section. documented in this encounter Results SURGICAL PATHOLOGY (02/09/2011 0:00 EDT) Pathology Report: SURGICAL PATHOLOGY REPORT ? [facility] Reports generated via electr [employer] interface contain original data; ? LAB however they are lacking the format of the original report. ? Caution should be taken when reading/interpreting unformatted reports. ? Name: ? BEVERLY, NERIS ? Accession #: ? [id number] ? : ? 1990 (Age: 20) ??F ? Collec t Date: ? 02/09/2011 ? Location: ? [facility] ? R eceive Date: ? 02/09/2011 ? Provider: GAILYN B YANET MD ? Copy to: CATY M DOBBERTIN M D ? Final Pathologic Diagnosis: ? Ectocervix, 12 o'cloc k, biopsy: ? 1. ?Acute and c hronic cervicitis. ? 2. ? Benign endocervical tissue is also identified. ? 3. ? No dysplasia is татьяна ntified. See comment. ? Comment: ? This case has been re viewed at the intradepartmental consultation ? conference. (Dr. Rodriguez) /mpl ? Document reviewed and electr onically signed by: ? TONY RODRIGUEZ MD ? Report ??Date: 02/12/2011 14 :27 ? By the signature above, the attending physician certifies that he/she has ? personally conducted a gross and/or microscopic examination of the described ? specimens and rendered or co nfirmed the above diagnosis. ? Specimen(s) Received: ? Colpo 12 o'clock ecto cervix ? Clinical History: ? 12/20/2010 Pap ??ASCUS , (+) HPV; LMP: 01/16/2011; control Mirena IUD ? Gross Description: ? Received in formalin labelled Beverly, Neris and 12 o'clock ectocervix is a craig-white 0.5 x 0.3 x 0.2 cm soft tissue fragment. ??The specimen is ? entirely submitted in one ca ssette. ??(Edmund Trivedi/wenceslao ? End of Report ? Specimen Performing Organization Address City/State/ZIP Code Phon e Number [facility] [address] [place] [address] SERVICES [facility] [address] [place] [address] documented in this encounter Visit Diagnoses Not on filedocumented in this encounter Care Teams Hand Laster Relationship Specialty Start Date End Date Caty Trinidad MD PCP - General 2/3/[address] [place] [address] documented as of this encounter
== END 2022-08-06 09:30 | disposition home or self-care (01) ==
LOC: DIORS 08-08 09:31
PROVIDERS: PCP Family Medicine; Visit Provider Physician Assistant
DX: S82.201D Unspecified fracture of shaft of right tibia, subsequent encounter for closed fracture with routine healing (principal); X58.XXXD Exposure to other specified factors, subsequent encounter
CPT/HCPCS: 73590

== ENCOUNTER 2022-10-01 16:07 | Outpatient (CLI) | payer MEDICAID, SELFPAY ==
--- NOTE | 2022-10-01 15:53 | DI.RAD_ITS ---
Exam(s) XR TIB/FIB RT EXAM: XR TIB/FIB RT INDICATION: right tibial fracture. COMPARISON: CR XR TIB/FIB RT from 08/06/2022 TECHNIQUE: 2D digital imaging was performed. Two views. FINDINGS: An intramedullary jumana is again noted through the tibia for fracture fixation. There is increased kalyn shubham formation around the fracture site. No new abnormalities are seen. DATA REPOSITORY: RADIATION DOSE DELIVERED:
== END 2022-10-01 16:08 | disposition home or self-care (01) ==
LOC: DIORS 16:07
PROVIDERS: PCP Family Medicine; Referring Provider Family Medicine; Visit Provider Physician Assistant
DX: S82.244 Nondisplaced spiral fracture of shaft of right tibia (principal); X58.XXXD Exposure to other specified factors, subsequent encounter
CPT/HCPCS: 73590

== ENCOUNTER 2022-12-03 15:41 | Outpatient (CLI) | payer MEDICAID, SELFPAY ==
--- NOTE | 2022-12-03 15:30 | DI.RAD_ITS ---
Exam(s) XR TIB/FIB RT EXAM: XR TIB/FIB RT CLINICAL HISTORY: S/P ORIF. TECHNIQUE: 2D digital imaging was performed. Two images were obtained. AP and lateral views were ob tained. COMPARISON: CR XR TIB/FIB RT from 10/01/2022 FINDINGS: BONES: There are stable post operative changes present. No new fracture or dislocation. The fracture continues to show healing. The fracture line is still well visualized anteriorly. JOINTS: The joint spaces are well maintained. No joint effusion is present. SOFT TISSUE: Normal. IMPRESSION: Healing right tibial fracture. DATA REPOSITORY: RADIATION DOSE DELIVERED:
== END 2022-12-03 15:42 | disposition home or self-care (01) ==
LOC: DIORS 15:41
PROVIDERS: PCP Family Medicine; Referring Provider Family Medicine; Visit Provider Student in an Organized Health Care Education/Training Program
DX: S82.244 Nondisplaced spiral fracture of shaft of right tibia (principal); W10.8XXD Fall (on) (from) other stairs and steps, subsequent encounter
CPT/HCPCS: 73590

== ENCOUNTER 2023-10-24 20:17 | Outpatient (REF) | payer MEDICAID, SELFPAY ==
[2023-10-26 13:09] LABS: Chlamydia Result Negative (Negative); GC Result Negative (Negative)
== END 2023-10-24 20:18 | disposition home or self-care (01) ==
LOC: LBN 20:17
PROVIDERS: PCP Family Medicine; Visit Provider Advanced Practice Midwife
DX: N93.8 Other specified abnormal uterine and vaginal bleeding (principal)
CPT/HCPCS: 87491; 87591

== ENCOUNTER → 2023-10-29 00:54 | Outpatient (CLI) | payer MEDICAID, SELFPAY ==
--- NOTE | 2023-10-29 07:00 | DI.US_ITS ---
Exam(s) US PELVIS TRANSVAGINAL EXAM: US PELVIS TRANSVAGINAL CLINICAL HISTORY: confirm IUD position,z97.5. TECHNIQUE: Transabdominal and transvaginal pelvic ultrasound was performed using standard protocol. COMPARISON: US SURVEY*(P) from 06/08/2010 US OB US 2-3 TRIMESTER TRANSABD*P from 08/23/2010 US [facility] OB ULTRASOUND from 09/07/2015 FINDINGS: UTERUS: Position: Anteverted. Size: 9.2 long by 4.7 AP by 6.4 transverse cm Endometrium: 0.6 cm. Normal for patient's menstrual status. The IUD is in good position. Myometrium: Unremarkable. Cervix: Small cervical nabothian cysts are present. OVARIES: Right: 3.8 x 3.6 x 1.5 cm Cyst or mass: No suspicious cystic or solid masses. Left: 3.8 x 3 x 2.4 cm Cyst or mass: No suspicious cystic or solid masses. DOPPLER: Color: Symmetric and uniform flow to both ovaries. CUL-DE-SAC: Free fluid: Trace amount of free fluid in the cul-de-sac. This is likely physiologic. Other: None. IMPRESSION: 1. Normal-appearing uterus with endometrial stripe within normal limits. 2. The IUD is in good position. 3. Unremarkable bilateral ovaries. DATA REPOSITORY:
== END ==
PROVIDERS: PCP Family Medicine; Visit Provider Advanced Practice Midwife
DX: N93.8 Other specified abnormal uterine and vaginal bleeding (principal); Z97.5 Presence of (intrauterine) contraceptive device
CPT/HCPCS: 76830; 76856

== ENCOUNTER 2024-05-25 10:36 | Outpatient (REF) | payer MEDICAID, SELFPAY ==
--- NOTE | 2024-05-25 10:30 | PAPFT_PTH ---
PATIENT: Neris Suh LOC: [facility] U#:[id number] AGE/SX: 33/F ROOM: RE05/25/[address]: Rivka Haro DO : 1990 BED: DIS: 05/25/2024 SPEC #: [id number] RECD: 05/25/24 13:04 STATUS: BREANN REQ #: [id number] MAXINE: 05/25/24 10:[address]: Rivka Haro DEPT: [facility] Cytology RECD BY: Heather Mcfarland ENTERED: 05/25/24 13:05 SP TYPE: PAPFT OTHR DR: Deedee Elder Tissues: 1 - CX/ENDOCX FOR PAP SMEARS Procedures: PAP THIN PREP/UVM Screening HPV DNA PROBE Comments: [id number] (HPV 16 & 18/45)
== END 2024-05-25 10:37 | disposition home or self-care (01) ==
LOC: LBN 10:36
PROVIDERS: PCP Family Medicine; Visit Provider Obstetrics & Gynecology
DX: Z12.4 Encounter for screening for malignant neoplasm of cervix (principal); Z97.5 Presence of (intrauterine) contraceptive device
CPT/HCPCS: 88142; 87624

== ENCOUNTER 2024-10-27 02:14 | Outpatient (CLI) | payer MEDICAID, SELFPAY ==
[2024-10-27 13:09] LABS: ALT 43 U/L (14-59); AST 29 U/L (15-37); Albumin 3.6 g/dL (3.4-5.0); Alkaline Phosphatase 97 U/L (46-116); Anion Gap 8.3 mmol/L (3-11); BUN 12 mg/dL (7-18); Bilirubin, Total 0.53 mg/dL (0.2-1.0); CO2 26.7 mmol/L (21.0-32.0); Calcium 9.1 mg/dL (8.5-10.1); Calculated LDL 147 mg/dL (<100); Chloride 106 mmol/L (98-107); Cholesterol 205 mg/dL (<200); Estimated GFR 74.88 (mL/min/1.73m2); Glucose 94 mg/dL (74-106); HDL Cholesterol 32 mg/dL (40-60); Potassium 4.2 mmol/L (3.5-5.1); Sodium 141 mmol/L (136-145); Total Protein 7.7 g/dL (6.4-8.2); Triglyceride 132 mg/dL (<150)
[2024-10-27 20:48] LABS: Hepatitis C Ab w Rflx HCV PCR Negative (Negative)
== END 2024-10-27 02:15 | disposition home or self-care (01) ==
LOC: LBO 02:14
PROVIDERS: PCP Nurse Practitioner Family; Visit Provider Nurse Practitioner Family
DX: Z13.220 Encounter for screening for lipoid disorders (principal); Z11.59 Encounter for screening for other viral diseases
CPT/HCPCS: 36415; 80053; 80061; 86803

== ENCOUNTER 2024-11-17 09:58 | Day surgery (SDC) | payer MEDICAID, SELFPAY ==
--- NOTE | 2024-11-16 20:23 | PDOC.DSDIS_ITS ---
Date of service: 11/17/24 Discharge Plan Disposition Patient Disposition: Home Condition: Good Discharge Details Reason For Visit: hernia repair Attending Provider: Laura Moya Primary Care Provider: Tanner Honeycutt Home Meds and New Rx's Prescriptions: New tramadol 50 mg tablet 50 mg PO Q4H PRNQty: 14 0RF Continued Mirena 20 mcg/24 hours (6 yrs) 52 mg intrauterine device 1 device intrauterine ONCE Rx Instructions: as a single dose fexofenadine [Michelle Allergy] 60 mg tablet 180 mg PO DAILY Discharge Instructions Additional Instructions: HERNIA REPAIR ? POSTOPERATIVE INSTRUCTIONS Patients who have this type of surgery can usually be expected to return to work within two weeks and have minimal amounts of discomfort. ? ACTIVITY: The day of surgery should be spent resting. However, you can be up for short periods of time, I.E., going to the bathroom or kitchen. Avoid lifting or straining. On the day following surgery, you can be up and about as desired. ? LIFTING: Restrict your lifting to no more than five (5) pounds for two weeks after surgery. ??We will decide when you are done with restrictions and when you can return to work, at your follow-up appointment.? No sexual activity for two weeks.? ? DIET: There are no dietary restrictions following surgery. However, you may want to start with small amounts of liquids to avoid nausea the day of surgery. ? INCISION CARE: You will notice purple skin glue closing the incision.? Do not peel this off- it will wear off on its own.? After 24 hours you may shower. The dressing may be replaced for comfort, but is not necessary. ?An ice bag may be applied to the incision for 72 hours following surgery. ? SIGNS OF INFECTION: It is not unusual to have some black and blue discoloration of the skin around the incision. ?It will slowly disappear. If you have any increased redness, drainage, fever (above 100 degrees), please contact your doctor for an examination. ? DISCOMFORT: You may expect to have some mild discomfort at the incision s ight. If severe pain develops you should contact your doctor for further instructions. ? DRIVING: NO driving for three (3) days after surgery, or if you are still taking narcotic pain medication.? ? MEDICATIONS: Alternate Tylenol 1000mg by mouth every 8 hours and Ibuprofen 600mg every 6 hours. ?Make sure you take ibuprofen with food and not on an empty stomach. ?Take the Tylenol and ibuprofen continuously for the first 72hrs- not just when you have pain.? Use the tramadol for breakthrough pain/pain >7.? Use ICE!?? Twenty minutes on, and then off, continuously for the first 72hours. If you are taking narcotic pain medication, follow the instructions on the label and do not drive. Pain medications can make you very constipated. Make sure you are moving your bowels daily. If not, take Miralax or Milk of Magnesia.?? Anesthesia makes you very constipated.? Take a dose of Miralax the morning after surgery. ? REPORT: Unusual swelling, severe pain, unresolved nausea, signs of infection, or difficulty in urination to your surgeon. Follow up in clinic with Dr. Moya in 2 weeks.? [phone] Activity:: See above Remove Dressings/Wound Care:: 24 hours Shower/Bathe:: 24 hours Diet:: As Tolerated Discharge Orders Discharge Orders: Discharge Order (Routine); Ordered 11/17/24 Ordered By: Laura Moya DS: Diagnosis Discharge Diagnosis (1) Umbilical hernia: Status: Acute Asessment and Plan: The patient is doing well post-op from their umbilical herniorraphy surgery.? They are having no nausea or vomiting. They are tolerating liquids and a snack. The pt is not having any chest pain or SOB.? Their pain is adequately controlled. They have been able to urinate.? ?HEENT:? no eye pain/drainage/redness/swelling. Mild sore throat ?Cardio- NSR, no chest pain, BP stable- see VS record ?Pulm: no sob or productive cough. No hemoptysis ?Incision- dressing is c/d/i w/ no excessive bleeding or drainage ?I discussed with the patient the findings at the time of surgery and the patient?s progress. ?We reviewed expectations at home; what the patient could expect for recovery time, and in the post-operative period.? We discussed the importance of walking to avoid blood clots and pneumonia.? We discussed and reviewed the patient's post-operative wound care and dressing needs.?? We reviewed their step-adhikari pain management plan, Rx called to the pharmacy of their choice.? We reviewed activity and limitations-see discharge instructions. We reviewed warning signs, and when to seek medical attention- see d/c instructions.?? Patient was given a postoperative follow-up appointment. Patient verbalized understanding of their postoperative instructions, how do to take care of themselves and their incision, and the pain management plan. Please see discharge instructions.?
--- NOTE | 2024-11-16 20:39 | W.PM.OP ---
Operative Note Operative Note PRE-OP DIAGNOSIS: incisional umbilical hernia POST-OP DIAGNOSIS: same PROCEDURE: open umbilical hernia w/ mesh SURGEON: Laura Moya ANESTHESIA TYPE: Local By Surgeon, General LMA/ETT and Primary Nerve Block Refer to Anesthesia Record PATHOLOGY: none sent COMPLICATIONS: None Patient was transported to: PACU Patient's condition: stable Procedure Description: The pt is here today for symptomatic incisional hernia of the umbilical, and is here today for repair. Informed consent was obtained, explaining risks and benefits of the procedure including but not limited to bleeding, infection, pneumonia, blood clots, recurrence, chronic pain or chronic numbness, reaction to mesh necessitating removal, complications of anesthesia and other unforetold complications. DESCRIPTION OF PROCEDURE: The patient was brought to the operating suite and placed in supine position. Anesthesia was administered per the Department of Anesthesia. ?Patient prepped and draped in the usual sterile fashion using DuraPrep scrub solution. IV antibiotics were administered. Pause for the cause was done. 20cc of .25% Marcaine is used for local anesthetic. A 1-inch incision was made in the superiorly to the umbilicus. The hernia sac is dissected off from the surrounding fascia. It is open and does contain omentum. We are unable to return the omentum to the abdominal cavity. The small piece of omentum and the hernia sac are excised using electrocautery. The size of the hernia is 2.5 cm. The surrounding tissue is dissected off the fascia.? A medium Kerlix patch was then placed in the defect, the defect was closed, over sewn with 2-0 vicryl and was copiously irrigated. An additional 10cc of Experel is is instilled into the wound at the time of closure. Deep tissue was approximated with 3-0 Vicryl and skin was approximated with 4-0 Monocryl in a running subcuticular fashion. Skin glue was applied. The patient tolerated the procedure well without complications and was transferred to recovery room in stable condition. Date of Procedure: 11/17/24
[2024-11-17] VITALS (24 sets, daily range): BP systolic 95–133; BP diastolic 55–84; PULSE 70–88; RESP 14–23; TEMP 36.3–36.8; O2SAT 89–97; BMI 45.6
[2024-11-17] MEDS: Lactated Ringers 1,000 ML 80 ML IV (10:34)
[2024-11-17] MEDS: Acetaminophen 500 MG TAB 1000 MG PO (10:38)
[2024-11-17] MEDS: Gabapentin 300 MG CAP 600 MG PO (10:38)
--- NOTE | 2024-11-17 12:33 | ANES.PREOP_ITS ---
General Info Date of Service Date Performed: 11/17/24 Height: 5 ft 5 in Weight: 124.4 kg Body Mass Index (BMI): 45.6 Surgical Procedure: Operation Date: 11/17/24 11:10 Proposed Procedure Side Surgeon p Herniorrhaphy Umbilical w/Mesh Laura Moya, Meds Allergies and Home Medications Allergies Allergy/AdvReac Type Severity Reaction Status Date / Time erythromycin base Allergy Intermediate RASH Verified 11/17/24 10:19 alcohol Allergy Mild Skin Rash Verified 11/17/24 10:19 Home Medication ?Medication ?Instructions ?Recorded levonorgestrel 21 mcg/24 hr (up to 1 device intrauterine ONCE 12/27/20 8 years) 52 mg intrauterine device (Mirena) fexofenadine 60 mg tablet (Michelle 180 mg PO DAILY 10/12/24 Allergy) Current Visit Medications: Current Medications Generic Name Dose Route Start Last Admin Trade Name Freq PRN Reason Stop Dose Admin Acetaminophen 1,000 mg 11/17/24 06:00 11/17/24 10:38 Acetaminophen 500 Mg Tab PO 11/17/24 23:59 1,000 mg PREOP ROSY Administration Gabapentin 600 mg 11/17/24 06:00 11/17/24 10:38 Gabapentin 300 Mg Cap PO 11/17/24 23:59 600 mg PREOP ROSY Administration Ringer's Solution 1,000 mls @ 80 mls/hr 11/17/24 06:00 11/17/24 10:34 IV 11/17/24 23:59 80 mls/hr INFUSION ROSY Administration Cefazolin Sodium 3,000 mg/ 100 mls @ 200 mls/hr 11/17/24 06:00 Sodium Chloride IVPB 11/17/24 23:59 PREOP ROSY Ondansetron HCl 4 mg/ Sodium 52 mls @ 200 mls/hr 11/17/24 08:20 Chloride IVPB 12/17/24 08:19 Q6H PRN PRN IV Miscellaneous Supplies 1 each 11/17/24 06:00 Iv Access IV 11/17/24 23:59 DIRECTED ROSY Morphine Sulfate 2 mg 11/17/24 08:20 Morphine 4 Mg/Ml Syr IVP 12/17/24 08:19 Q1H PRN PRN Sodium Chloride 0 ml 11/17/24 06:00 Normal Saline Flush 10 Ml Syr IV 11/17/24 23:59 PRN PRN Sodium Chloride 0 ml 11/17/24 06:00 Normal Saline 10 Ml Vial IJ 11/17/24 23:59 DIRECTED PRN Sterile Water 0 ml 11/17/24 06:00 Water,Injection,Sterile 10 Ml Vial IJ 11/17/24 23:59 DIRECTED PRN Tramadol HCl 50 mg 11/17/24 08:20 Tramadol 50 Mg Tab PO 12/17/24 08:19 Q6H PRN PRN Pain PFSH Active Problems Active Problems: Problem Status Onset Code Superior labrum dgjonmcg-sx-gxevchznb (SLAP) tear of right shoulder Acute ~08/2020 S43.431A Panic attack Acute 09/15/13 F41.0 Umbilical hernia Acute K42.9 IUD surveillance Acute Z30.431 Vitamin D deficiency Acute 10/13/14 E55.9 Migraine with aura Acute 09/15/13 G43.109 Medical History Medical History Open right tibial fracture (05/14/22) Abnormal cervical Pap smear with positive HPV DNA test (05/27/09) Family history of diabetes mellitus (DM) (01/14/18) father Family history of alcohol abuse (01/14/18) Family history of abdominal aortic aneurysm (AAA) (01/14/18) Surgical History Surgical History S/P cholecystectomy Tobacco Smoking/Tobacco Use Status: Never Passive smoking exposure: No Second hand exposure: No Alcohol Alcohol Intake: current Alcohol intake frequency: holidays/special occasions only Alcohol type: wine and hard liquor Substance Use Substance use: Never Substance use type: does not use Prental History History 3 Para 3 Hx # Term Pregnancies Multiple births Hx # Pregnancies Ectopic pregnancies AB induced Hx Number of Living Children AB spontaneous Vital Signs and Lab Results Vital Signs Most Recent Vital Signs in EMR: Most Recent Vital Signs Temp Pulse Resp BP Pulse Ox 36.3 C L 82 20 130/84 97 11/17/24 10:21 11/17/24 10:21 11/17/24 10:21 11/17/24 10:21 11/17/24 10:21 Point of Care Results Point of Care Results: POC- Test(urine) Negative 11/17/24 11:02 Lab Results Blood Type / Crossmatch: No Data to Display Complete Blood Count: No Data to Display Complete Metabolic Panel: Sodium 141 mmol/L (136-145) 10/27/24 12:02 Potassium 4.2 mmol/L (3.5-5.1) 10/27/24 12:02 Chloride 106 mmol/L (98-107) 10/27/24 12:02 Carbon Dioxide 26.7 mmol/L (21.0-32.0) 10/27/24 12:02 BUN 12 mg/dL (7-18) 10/27/24 12:02 Creatinine 1.0 mg/dL (0.55-1.02) 10/27/24 12:02 Est GFR (CKD-EPI 2020) 74.88 (mL/min/1.73m2) 10/27/24 12:02 Calcium 9.1 mg/dL (8.5-10.1) 10/27/24 12:02 Albumin 3.6 g/dL (3.4-5.0) 10/27/24 12:02 Glucose 94 mg/dL (74-106) 10/27/24 12:02 Liver Function Panel: Alanine Aminotransferase (ALT/SGPT) 43 U/L (14-59) 10/27/24 12: 02 Aspartate Amino Transf (AST/SGOT) 29 U/L (15-37) 10/27/24 12:02 Coagulation Panel: No Data to Display Cardiac Panel: No Data to Display Arterial Blood Gas: No Data to Display Venous Blood Gas: No Data to Display Pancreas Panel: No Data to Display Thyroid Panel: No Data to Display Infectious Disease: Hepatitis C Antibody Negative (Negative) 10/27/24 12:02 Blood Cultures: No Data to Display Toxicology Panel: No Data to Display Panel: No Data to Display Anesthesia Assessment and Plan Anesthesia History Personal History: No History of Anesthesia Complications Family History: No Family History of Anesthesia Complications Exercise Tolerance Exercise Tolerance: Metabolic Equivalents>4 Pertinent Negatives Pertinent Negatives: No Major Cardiovascular Symptoms or Complaints and No Major Pulmonary Symptoms or Complaints Cardiac & Pulmonary Exam Cardiac Exam: Normal S1/S2 Heart Sounds Pulmonary Exam: Clear Bilateral Breath Sounds Implantable Cardiac Device Does patient have a Pacemaker or an ICD?: No Airway Exam Known Difficult Airway: No
--- NOTE | 2024-11-17 13:01 | ANES.PREOP_ITS ---
General Info Date of Service Date Performed: 11/17/24 Height: 5 ft 5 in Weight: 124.4 kg Body Mass Index (BMI): 45.6 Surgical Procedure: Operation Date: 11/17/24 11:10 Proposed Procedure Side Surgeon p Herniorrhaphy Umbilical w/Mesh Laura Moya, DO Actual Procedure Side Surgeon p Herniorrhaphy Umbilical w/Mesh Laura Moya, DO Pre-Op Diagnosis Post-Op Diagnosis Umbilical hernia: Meds Allergies and Home Medications Allergies Allergy/AdvReac Type Severity Reaction Status Date / Time erythromycin base Allergy Intermediate RASH Verified 11/17/24 10:19 alcohol Allergy Mild Skin Rash Verified 11/17/24 10:19 Home Medication ?Medication ?Instructions ?Recorded levonorgestrel 21 mcg/24 hr (up to 1 device intrauterine ONCE 12/27/20 8 years) 52 mg intrauterine device (Mirena) fexofenadine 60 mg tablet (Michelle 180 mg PO DAILY 10/12/24 Allergy) Current Visit Medications: Current Medications Generic Name Dose Route Start Last Admin Trade Name Freq PRN Reason Stop Dose Admin Acetaminophen 1,000 mg 11/17/24 06:00 11/17/24 10:38 Acetaminophen 500 Mg Tab PO 11/17/24 23:59 1,000 mg PREOP ROSY Administration Gabapentin 600 mg 11/17/24 06:00 11/17/24 10:38 Gabapentin 300 Mg Cap PO 11/17/24 23:59 600 mg PREOP ROSY Administration Ringer's Solution 1,000 mls @ 80 mls/hr 11/17/24 06:00 11/17/24 10:34 IV 11/17/24 23:59 80 mls/hr INFUSION ROSY Administration Cefazolin Sodium 3,000 mg/ 100 mls @ 200 mls/hr 11/17/24 06:00 Sodium Chloride IVPB 11/17/24 23:59 PREOP ROSY Ondansetron HCl 4 mg/ Sodium 52 mls @ 200 mls/hr 11/17/24 08:20 Chloride IVPB 12/17/24 08:19 Q6H PRN PRN IV Miscellaneous Supplies 1 each 11/17/24 06:00 Iv Access IV 11/17/24 23:59 DIRECTED ROSY Morphine Sulfate 2 mg 11/17/24 08:20 Morphine 4 Mg/Ml Syr IVP 12/17/24 08:19 Q1H PRN PRN Sodium Chloride 0 ml 11/17/24 06:00 Normal Saline Flush 10 Ml Syr IV 11/17/24 23:59 PRN PRN Sodium Chloride 0 ml 11/17/24 06:00 Normal Saline 10 Ml Vial IJ 11/17/24 23:59 DIRECTED PRN Sterile Water 0 ml 11/17/24 06:00 Water,Injection,Sterile 10 Ml Vial IJ 11/17/24 23:59 DIRECTED PRN Tramadol HCl 50 mg 11/17/24 08:20 Tramadol 50 Mg Tab PO 12/17/24 08:19 Q6H PRN PRN Pain PFSH Active Problems Active Problems: Problem Status Onset Code Superior labrum tgrttybk-xf-fugftbpau (SLAP) tear of right shoulder Acute ~08/2020 S43.431A Panic attack Acute 09/15/13 F41.0 Umbilical hernia Acute K42.9 IUD surveillance Acute Z30.431 Vitamin D deficiency Acute 10/13/14 E55.9 Migraine with aura Acute 09/15/13 G43.109 Medical History Medical History Open right tibial fracture (05/14/22) Abnormal cervical Pap smear with positive HPV DNA test (05/27/09) Family history of diabetes mellitus (DM) (01/14/18) father Family history of alcohol abuse (01/14/18) Family history of abdominal aortic aneurysm (AAA) (01/14/18) Surgical History Surgical History S/P cholecystectomy Tobacco Smoking/Tobacco Use Status: Never Passive smoking exposure: No Second hand exposure: No Alcohol Alcohol Intake: current Alcohol intake frequency: holidays/special occasions only Alcohol type: wine and hard liquor Substance Use Substance use: Never Substance use type: does not use Prental History History 3 Para 3 Hx # Term Pregnancies Multiple births Hx # Pregnancies Ectopic pregnancies AB induced Hx Number of Living Children AB spontaneous Vital Signs and Lab Results Vital Signs Most Recent Vital Signs in EMR: Most Recent Vital Signs Temp Pulse Resp BP Pulse Ox 36.3 C L 82 20 130/84 97 11/17/24 10:21 11/17/24 10:21 11/17/24 10:21 11/17/24 10:21 11/17/24 10:21 Point of Care Results Point of Care Results: POC- Test(urine) Negative 11/17/24 11:02 Lab Results Blood Type / Crossmatch: No Data to Display Complete Blood Count: No Data to Display Complete Metabolic Panel: Sodium 141 mmol/L (136-145) 10/27/24 12:02 Potassium 4.2 mmol/L (3.5-5.1) 10/27/24 12:02 Chloride 106 mmol/L (98-107) 10/27/24 12:02 Carbon Dioxide 26.7 mmol/L (21.0-32.0) 10/27/24 12:02 BUN 12 mg/dL (7-18) 10/27/24 12:02 Creatinine 1.0 mg/dL (0.55-1.02) 10/27/24 12:02 Est GFR (CKD-EPI 2020) 74.88 (mL/min/1.73m2) 10/27/24 12:02 Calcium 9.1 mg/dL (8.5-10.1) 10/27/24 12:02 Albumin 3.6 g/dL (3.4-5.0) 10/27/24 12:02 Glucose 94 mg/dL (74-106) 10/27/24 12:02 Liver Function Panel: Alanine Aminotransferase (ALT/SGPT) 43 U/L (14-59) 10/27/24 12: 02 Aspartate Amino Transf (AST/SGOT) 29 U/L (15-37) 10/27/24 12:02 Coagulation Panel: No Data to Display Cardiac Panel: No Data to Display Arterial Blood Gas: No Data to Display Venous Blood Gas: No Data to Display Pancreas Panel: No Data to Display Thyroid Panel: No Data to Display Infectious Disease: Hepatitis C Antibody Negative (Negative) 10/27/24 12:02 Blood Cultures: No Data to Display Toxicology Panel: No Data to Display Panel: No Data to Display Anesthesia Assessment and Plan Anesthesia History Personal History: No History of Anesthesia Complications Family History: No Family History of Anesthesia Complications Exercise Tolerance Exercise Tolerance: Metabolic Equivalents>4 Pertinent Negatives Pertinent Negatives: No Symptoms of GERD Cardiac & Pulmonary Exam Cardiac Exam: Normal S1/S2 Heart Sounds Pulmonary Exam: Clear Bilateral Breath Sounds Implantable Cardiac Device Does patient have a Pacemaker or an ICD?: No Airway Exam Known Difficult Airway: No Mallampati Class: 3 Mouth Opening: Normal (> 3cm) Thyromental Distance: Greater than 3 cm Neck Range of Motion: Full ROM Neck Circumference: Normal Teeth Condition: Normal Dentition ASA Classification ASA Score: ASA 3 Emergency Case?: No NPO Status NPO Status: NPO Clears >2 hours, Solids >8 hours Status Status: Negative HCG Anesthesia Plan Resuscitation Status: Full Code Anesthesia Technique: General Anesthesia Airway Planned: Endotracheal Tube Monitors Used: Standard Monitors
[2024-11-17] MEDS: ceFAZolin 3,000 MG in Normal Saline 100 ML 200 MG IVPB (13:25)
[2024-11-17] MEDS: Bupivacaine 0.25% Pres-Free 30 ML VIAL (13:47)
[2024-11-17] MEDS: Bupivacaine LIPOSOME/PF 133 MG/10 ML VIAL IJ (13:47)
[2024-11-17] MEDS: fentaNYL 100 MCG/2 ML VIAL IVP ×2 (14:42→14:58)
[2024-11-17] MEDS: traMADol 50 MG TAB PO (15:39)
--- NOTE | 2024-11-17 15:46 | W.ANESPOSTOP ---
Postoperative Evaluation Date, Time and Location Date Performed: 11/17/24 Time Performed: 15:46 Patient Location: Day Surgery Unit Vital Signs Most Recent Imported Vital Signs: Most Recent Vital Signs Temp Pulse Resp BP Pulse Ox 36.8 C 73 16 122/69 94 11/17/24 15:40 11/17/24 15:40 11/17/24 15:40 11/17/24 15:40 11/17/24 15:40 Pain Score Most Recent Pain Score: Most Recent Pain Score Pain Level 4 11/17/24 15:40 Assessment Mental Status: Awake (Alert & Oriented to Patient Baseline) Airway and Respiratory Function: Patent airway with normal (patient baseline) respiratory exam Cardiovascular Function: Hemodynamically Stable Hydration Status: Adequately Hydrated Nausea & Vomiting: No Nausea or Vomiting Pain: Pain is tolerable per patient Peripheral Nerve Block: Patient did not receive a nerve block
== END 2024-11-17 17:00 | disposition home or self-care (01) ==
LOC: SUR 09:59
PROVIDERS: PCP Nurse Practitioner Family; Visit Provider Surgery
PROC: (CPT 49591; principal; 2024-11-17 11:00)
DX: K42.9 Umbilical hernia without obstruction or gangrene (principal)
CPT/HCPCS: 49591; 81025; C1781; J0665; J0666; J0690; J1100; J1885; J2250; J2405; J2704; J3010

== ENCOUNTER 2024-12-07 15:35 | Outpatient (REF) | payer MEDICAID, SELFPAY ==
[2024-12-07 16:10] LABS: Hemoglobin A1C 5.8 % (<5.7)
[2024-12-07 16:20] LABS: TSH (W/Ref FT4) 1.68 uIU/mL (0.36-3.74)
== END 2024-12-07 15:36 | disposition home or self-care (01) ==
LOC: LBN 15:35
PROVIDERS: PCP Nurse Practitioner Family; Visit Provider Nurse Practitioner Family
DX: R63.5 Abnormal weight gain (principal)
CPT/HCPCS: 83036; 84443